=== PATIENT | male | born 1955 | race American Indian/Alaskan Native ===

== ENCOUNTER 2018-04-14 22:58 | Inpatient (IN) | payer MEDICAID ==
--- NOTE | 2018-04-15 00:23 | ED PDOC ---
Arrival/HPI <Avinash Posey - Last Filed: 04/15/18 01:13> - General Historian: Patient <Emmanuelle Soares - Last Filed: 04/15/18 02:03> - General Chief Complaint: Back Pain Time Seen by Provider: 04/14/18 23:57 - History of Present Illness Narrative History of Present Illness (Text): 04/15/18 00:24 62-year-old male presents today with multiple falls dizziness and feeling dizzy. Patient states that he has not been feeling well lately. He is complaining of a fall 2 days ago. Patient states he has been feeling dizziness. pt states today he just doesnt feel right. Pt states he is having neck pain and low back pain since his fall yesterday. pt states he fell landing on his back. pt states he hit his head but denies loc. pt denies abdominal pain. no nv/d/c/. no cp or shortness of breath. pt denies fever/chills. pt states he has had a slight cough for 9 days. no bladder or bowel incontinence. no other complaints. (Emmanuelle Soares) Past Medical History - Provider Review Nursing Documentation Reviewed: Yes - Travel History Have you recently traveled outside [place] w/in the past 3 mons?: No - Infectious Disease Hx of Infectious Diseases: None - Tetanus Immunization Tetanus Immunization: Unknown - Cardiac Hx Cardiac Disorders: Yes - Pulmonary Hx Respiratory Disorders: Yes Hx Pneumonia: Yes - Neurological Hx Neurological Disorder: No - HEENT Hx HEENT Disorder: No - Renal Hx Renal Disorder: No - Endocrine/Metabolic Hx Endocrine Disorders: No - Hematological/Oncological Hx Blood Disorders: No - Integumentary Hx Dermatological Disorder: No - Musculoskeletal/Rheumatological Hx Musculoskeletal Disorders: Yes Other/Comment: Falls, L hip r/p, spine sx, h/o clot on left leg - Gastrointestinal Hx Gastrointestinal Disorders: Yes Hx Nausea: Yes Hx Vomiting: Yes - Genitourinary/Gynecological Hx Genitourinary Disorders: Yes (HX SCROTAL INFECTION) Hx Prostate Problems: Yes - Psychiatric Hx Psychophysiologic Disorder: No Hx Depression: No Hx Substance Use: No - Surgical History Hx Orthopedic Surgery: Yes (spine sx 3-4 years ago) Other/Comment: L hip r/p - Anesthesia Hx Anesthesia: Yes Hx Anesthesia Reactions: Yes Hx Malignant Hyperthermia: No - Suicidal Assessment Feels Threatened In Home Enviroment: No <Emmanuelle Soares - Last Filed: 04/15/18 02:03> Family/Social History - Physician Review Nursing Documentation Reviewed: Yes Family/Social History: Unknown Family HX Smoking Status: Never Smoked Hx Alcohol Use: No Hx Substance Use: No Hx Substance Use Treatment: No <Emmanuelle Soares [place] - Last Filed: 04/15/18 02:03> Allergies/Home Meds <Avinash Posey - Last Filed: 04/15/18 01:13> <Emmanuelle Soares [place] - Last Filed: 04/15/18 02:03> Allergies/Adverse Reactions: Allergies No Known Allergies Allergy (Verified 04/14/18 23:16) Home Medications: Home Meds Medication Instructions Recorded Confirmed Atorvastatin [Lipitor] 10 mg PO HS 09/30/16 04/14/18 Tamsulosin [Flomax] 0.4 mg PO DAILY 09/30/16 04/14/18 Zolpidem [Ambien] 12.5 mg PO HS 09/30/16 04/14/18 Apixaban [Eliquis] 5 mg PO DAILY 10/23/16 04/14/18 Review of Systems - Review of Systems Constitutional: absent: Fatigue, Fevers Respiratory: absent: SOB, Cough Cardiovascular: absent: Chest Pain, Palpitations Gastrointestinal: absent: Abdominal Pain, Constipation, Diarrhea, Nausea, Vomiting Genitourinary Male: absent: Dysuria, Frequency, Hematuria, Urinary Output Changes Musculoskeletal: Arthralgias, Back Pain, Neck Pain Skin: absent: Rash, Pruritis Neurological: Dizziness. absent: Headache Psychiatric: absent: Anxiety, Depression <Emmanuelle Soares [place] - Last Filed: 04/15/18 02:03> Physical Exam Vital Signs Reviewed: Yes Temperature: Afebrile Blood Pressure: Normal Pulse: Regular Respiratory Rate: Normal Appearance: Positive for: Well-Appearing, Non-Toxic, Comfortable Pain Distress: None Mental Status: Positive for: Alert and Oriented X 3 - Systems Exam Head: Present: Atraumatic Pupils: Present: PERRL Extroacular Muscles: Present: EOMI Mouth: Present: Moist Mucous Membranes Neck: Present: Normal Range of Motion, MIDLINE TENDERNESS, Paraspinal Tenderness , Trachea Midline Respiratory/Chest: Present: Clear to Auscultation, Good Air Exchange. No: Respiratory Distress, Accessory Muscle Use Cardiovascular: Present: Regular Rate and Rhythm, Normal S1, S2. No: Murmurs Abdomen: No: Tenderness, Distention, Rebound, Guarding Back: Present: Normal Inspection, Midline Tenderness (+ low lumbar midline and left sided paraspinal tenderness. ), Paraspinal Tenderness Upper Extremity: Present: Normal ROM Lower Extremity: Present: Edema (+ bilateral lower leg edema), Normal ROM Neurological: Present: GCS=15, Speech Normal, Motor Func Grossly Intact, Normal Sensory Function Skin: Present: Warm, Dry, Normal Color. No: Rashes Psychiatric: Present: Alert, Oriented x 3 <Emmanuelle Soares - Last Filed: 04/15/18 02:03> Vital Signs Temp Pulse Resp BP Pulse Ox 04/15/18 01:51 98 F 75 19 126/72 99 04/14/18 23:12 98.2 F 91 H 19 123/83 100 Medical Decision Making <Avinash Posey - Last Filed: 04/15/18 01:13> Reassessment Condition: Re-examined, Improved <Emmanuelle Soares - Last Filed: 04/15/18 02:03> ED Course and Treatment: 04/15/18 00:30 62yr old male presents today with dizziness and frequent falls. c/o neck, back and left hip pain. cbc hbg;10.6 cmp: K; 2.9 trop: wnl ekg: sinus bradycardia at 58b/m no st elevations, normal axis, normal intervals. cxr; no infiltrate, no effusion left hip; hardware without signs of acute fracture head ct: FINDINGS: Brain: Prominent left temporal extra-axial space/arachnoid cyst. Cerebral and cerebellar volume loss. Patchy hypodensity is seen in the periventricular and subcortical white matter. Ventricles: Normal. No ventriculomegaly. Bones/joints: Normal. No acute fracture. Sinuses: Patchy sinus disease. Mastoid air cells: Normal as visualized. No mastoid effusion. Orbits: The visualized portions of globes appear intact. There is plate and screw fixation of right orbit. Soft tissues: Normal. IMPRESSION: No evidence of an acute intracranial hemorrhage, midline shift or mass effect is identified. c spine ct:FINDINGS: Vertebrae: There is cervical spine pedicle screw fixation from C2-C6. There is an anterior stabilization of C2-C3 and C3-C4 with disc prosthesis. Discs/Spinal canal/Neural foramina: See Vertebrae Finding. Soft tissues: Left temporal region prominent extra-axial space versus arachnoid cyst. Lung apices: Normal. Sinuses: Patchy sinus disease. IMPRESSION: There is no acute fracture of cervical spine lspine ct:FINDINGS: Vertebrae: There is pedicle screw fixation of L4-S1 level. There is hardware related artifact. Discs/Spinal canal/Neural foramina: L2-L3: There is mild diffuse disc osteophyte complex. L3-L4: There is a mild disc bulge. Ligamentum flavum hypertrophy and facet arthritis. L4-L5, L5-S1 disc prosthesis. Other bones/joints: Left hip prosthesis. Femoral component is incompletely visualized. Soft tissues: See Discs/spinal Canal/neural Foramina Finding. Bladder: Partially distended bladder with 11 mm bladder wall thickening. Correlation with urology history and urinalysis is recommended only if clinical cystitis versus other etiology is suspected. Reproductive: Enlarged prostate with calcification. Other findings: There is an infrarenal IVC filter. Small hiatal hernia. There is bibasilar atelectasis. IMPRESSION: 1. Limited do to hardware artifact. The bones are osteopenic.There is no evidence of acute fracture. 04/15/18 01:21 pt given 40 of potassium Po. pt reassessment; pt sleeping in er. no distress. stable vitals. no medications given for pain as patient is in no distress. case discussed with dr. Mcguire; will admit observational status to tele for dizziness, frequent falls, hypokalemia. all aspects of this case were discussed the attending of record. impression; dizziness, near syncope, frequent falls, hypokalemia, back pain, neck pain admit observational status to tele. (Emmanuelle Soares) - Lab Interpretations Lab Results: 04/15/18 00:00 04/15/18 00:00 Lab Results 04/15/18 00:30: Urine Color Straw, Urine Appearance Clear, Urine pH 7.0, Ur Specific [place] <= 1.005, Urine Protein Negative, Urine Glucose (UA) Negative, Urine Ketones Negative, Urine Blood Negative, Urine Nitrate Negative, Urine Bilirubin Negative, Urine Urobilinogen 0.2, Ur Leukocyte Esterase Negative 04/15/18 00:00: WBC 5.4, RBC 4.49, Hgb 10.6 L, Hct 32.1 L, MCV 71.5 L, MCH 23.6 L, MCHC 33.0, RDW 14.9 H, Plt Count 165, MPV 10.3, Gran % 53.5, Lymph % (Auto) 36.8 H, [place] % (Auto) 5.4, Eos % (Auto) 3.7, Baso % (Auto) 0.6, Gran # 2.90, Lymph # (Auto) 2.0, [place] # (Auto) 0.3, Eos # (Auto) 0.2, Baso # (Auto) 0.03 04/15/18 00:00: Sodium 143, Potassium 2.9 L* D, Chloride 103, Carbon Dioxide 30 , Anion Gap 12, BUN 15, Creatinine 0.9, Est GFR ( Amer) > 60, Est GFR ( Non-Af Amer) > 60, Random Glucose 96, Calcium 8.6, Total Bilirubin 0.3, AST 30, ALT 36, Alkaline Phosphatase 84, Lactate Dehydrogenase 510, Total Creatine Kinase 410 H, CK-MB (CK-2) 5.8 H, CK-MB (CK-2) % 1.4 L, Troponin I < 0.01, Total Protein 6.8, Albumin 3.7, Globulin 3.1, Albumin/Globulin Ratio 1.2 04/15/18 00:00: PT 14.3 H, INR 1.25, APTT 46.9 H - RAD Interpretation Radiology Orders: 04/15/18 00:07 CERVICAL SPINE W/O CONTRAST [CT] Stat LUMBAR SPINE W/O CONTRAST [CT] Stat CHEST PORTABLE [RAD] Stat 04/15/18 00:12 Hip Left [HIP MIN 2V W/ PELVIS LT] [RAD] Stat 04/15/18 00:15 HEAD W/O CONTRAST [CT] Stat - Medication Orders Current Medication Orders: Discontinued Medications Potassium Chloride (K-Dur 20 Meq Er Tab) 40 meq PO STAT STA Stop: 04/15/18 01:22 Last Admin: 04/15/18 01:36 Dose: 40 meq - 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 / has examined the patient and agrees with the treatment plan. <Avinash Posey - Last Filed: 04/15/18 01:13> Disposition/Present on Arrival <Avinash Posey - Last Filed: 04/15/18 01:13> - Present on Arrival Any Indicators Present on Arrival: No History of DVT/PE: No History of Uncontrolled Diabetes: No Urinary Catheter: No History of Decub. Ulcer: No History Surgical Site Infection Following: None - Disposition Have Diagnosis and Disposition been Completed?: Yes Disposition Time: 01:55 Patient Plan: Observation <Emmanuelle Soares - Last Filed: 04/15/18 02:03> - Disposition Diagnosis: Dizziness, Near syncope, Hypokalemia, Neck pain, Back pain, Hip pain Disposition: HOSPITALIZED Patient Problems: Current Active Problems Problem Status Onset Back pain Acute Dizziness Acute Hip pain Acute Hypokalemia Acute Near syncope Acute Neck pain Acute Condition: FAIR Referrals: Maira Grimaldo MD [Primary Care Provider] - Follow up with primary Forms: [employer] (Greek)
[2018-04-15 00:32] LABS: BASO # 0.03 K/mm3 (0.0-2.0); BASO % 0.6 % (0.0-3.0); EOS # 0.2 (0.0-0.7); EOS % 3.7 % (1.5-5.0); GRAN # 2.9 (1.4-6.5); GRAN % 53.5 % (50.0-68.0); HEMOGLOBIN 10.6 g/dL (14.0-18.0); LYMPH % 36.8 % (22.0-35.0); MEAN CELL VOLUME 71.5 fl (80.0-105.0); MEAN CORPUSCULAR HEMOGLOBIN 23.6 pg (25.0-35.0); MEAN PLATELET VOLUME 10.3 fl (7.0-11.0); MONO # 0.3 (0.1-0.6); MONO % 5.4 % (1.0-6.0); RBC 4.49 10^6/uL (3.5-6.1); RED CELL DISTRIBUTION WIDTH 14.9 % (11.5-14.5); WHITE BLOOD COUNT 5.4 10^3/ul (4.5-11.0)
[2018-04-15 00:47] LABS: INR 1.25; PARTIAL THROMBOPLASTIN TIME 46.9 Seconds (25.1-36.5); PROTHROMBIN TIME 14.3 SECONDS (9.4-12.5)
[2018-04-15 00:58] LABS: URINE BILIRUBIN NEGATIVE (NEGATIVE); URINE BLOOD NEGATIVE (NEGATIVE); URINE GLUCOSE (UA) NEGATIVE (NEGATIVE); URINE LEUKOCYTE ESTERASE NEGATIVE Leu/uL (NEGATIVE); URINE PROTEIN NEGATIVE mg/dL (<30 mg/dL); URINE UROBILINOGEN 0.2 E.U./dL (<1 E.U./dL)
[2018-04-15 01:02] LABS: TROPONIN I < 0.01 ng/mL
[2018-04-15 01:04] LABS: URINE APPEARANCE CLEAR (CLEAR); URINE COLOR STRAW (YELLOW)
[2018-04-15 01:16] LABS: ALB/GLOB RATIO 1.2 (1.1-1.8); ALBUMIN 3.7 g/dL (3.0-4.8); ALT/SGPT 36 U/L (7-56); AST/SGOT 30 U/L (17-59); BLOOD UREA NITROGEN 15 mg/dL (7-21); CALCIUM 8.6 mg/dL (8.4-10.5); GFR NON-AFRICAN AMERICAN > 60
[2018-04-15 01:19] LABS: CK MB% 1.4 % (2.5-3.0); CK-MB 5.8 ng/mL (0.0-3.6)
[2018-04-15] MEDS ORDERED: Potassium Chloride 20 mEq ER Tab PO STA (01:21)
--- NOTE | 2018-04-15 03:42 | CP.PCM.HP ---
<Tita Mcpherson - Last Filed: 04/15/18 09:30> History of Present Illness - History of Present Illness History of Present Illness: History and Physical for: Dr. Hamilton CC: Dizziness, fall, neck and back pain Pt is a 62 yo M with pmhx of DVT, L hip arthroplasty, C spine fusion surgery, BPH, Iron deficiency anemia, who presents 2 days after a mechanical fall vs near syncopal episode for neck and back pain. Pt uses a walker to help with ambulation s/p L hip arthroplasty in 2016. He states that 2 days ago he was using his walker and was about to sit down when the breaks on his walker failed and it slid forward away from his grasp. He also states that he may have experienced a bout of light headedness near the time of the fall. He states that once his walker slipped from his grasp he then hit his neck against his sofa. He denies any LOC after the fall. He then felt some pain in his neck and in his lower back a day after the fall, but is coming in today because he states the pain is not getting any better. He describes the pain as a 9/10 without radiation, but is associated with movement of the neck. He states that he had cervical fusion done but isnt sure what year. He also admits to having non-bloody diarrhea for 2 days, and denies going out for food or changing his meals. He states that he has about 3 loose soft BM's a day since the diarrhea began. He denies recent antibiotic use. He also admits to a cough for 2 weeks. He states that it is productive of a white phlegm. Pt denies fevers, chills, night sweats, weight loss, hemoptysis, chest pain, SOB, abdominal pain, nausea, vomiting, dysuria or frequency. PMH: DVT, BPH, iron deficiency anemia, c.diff PSH: back and spine surgery, L hip replacement All: NKDA SH: Denies tobacco, EtOH, or drug use FH: Dad- from [place] at 63yo, Mom- possible pacreatic cancer at 78 Present on Admission - Present on Admission Any Indicators Present on Admission: Yes History of DVT/PE: Yes Review of Systems - Constitutional Constitutional: absent: Chills, Fever, Night Sweats, Weight Loss - EENT Eyes: absent: Blurred Vision, Change in Vision Ears: absent: Tinnitus - Cardiovascular Cardiovascular: absent: Chest Pain, Diaphoresis, Irregular Heart Rhythm - Respiratory Respiratory: Cough (productive of white phlegm). absent: Dyspnea, Hemoptysis, Wheezing - Gastrointestinal Gastrointestinal: Diarrhea (past 2 days, 3 bouts of soft stools/day). absent: Abdominal Pain, Hematochezia, Melena, Nausea, Vomiting - Genitourinary Genitourinary: absent: Difficulty Urinating, Dysuria - Neurological Neurological: Dizziness. absent: Numbness, Focal Weakness, Headaches, Weakness Additional comments: admits to lightheadedness - Endocrine Endocrine: Fatigue. absent: Cold Intolorance, Palpitations Past Patient History - Infectious Disease Hx of Infectious Diseases: None - Tetanus Immunizations Tetanus Immunization: Unknown - Past Medical History & Family History Past Medical History?: Yes - Past Social History Smoking Status: Never Smoked - CARDIAC Hx Cardiac Disorders: Yes - PULMONARY Hx Respiratory Disorders: Yes Hx Pneumonia: Yes - NEUROLOGICAL Hx Neurological Disorder: No - HEENT Hx HEENT Problems: No - RENAL Hx Chronic Kidney Disease: No - ENDOCRINE/METABOLIC Hx Endocrine Disorders: No - HEMATOLOGICAL/ONCOLOGICAL Hx Blood Disorders: No - INTEGUMENTARY Hx Dermatological Problems: No - MUSCULOSKELETAL/RHEUMATOLOGICAL Hx Musculoskeletal Disorders: Yes Other/Comment: Falls, L hip r/p, spine sx, h/o clot on left leg - GASTROINTESTINAL Hx Gastrointestinal Disorders: Yes Hx Nausea: Yes Hx Vomiting: Yes - GENITOURINARY/GYNECOLOGICAL Hx Genitourinary Disorders: Yes (HX SCROTAL INFECTION) Hx Prostate Problems: Yes - PSYCHIATRIC Hx Psychophysiologic Disorder: No Hx Depression: No Hx Substance Use: No - SURGICAL HISTORY Hx Orthopedic Surgery: Yes (spine sx 3-4 years ago) Other/Comment: L hip r/p - ANESTHESIA Hx Anesthesia: Yes Hx Anesthesia Reactions: Yes Hx Malignant Hyperthermia: No Meds Allergies/Adverse Reactions: Allergies Allergy/AdvReac Type Severity Reaction Status Date / Time No Known Allergies Allergy Verified 04/14/18 23:16 Physical Exam - Constitutional Appears: Well, Non-toxic, No Acute Distress - Head Exam Head Exam: ATRAUMATIC, NORMAL INSPECTION, NORMOCEPHALIC - Eye Exam Eye Exam: EOMI, Normal appearance, PERRL - Respiratory Exam Respiratory Exam: Clear to Auscultation Bilateral, NORMAL BREATHING PATTERN. absent: Accessory Muscle Use, Chest Wall Tenderness - Cardiovascular Exam Cardiovascular Exam: REGULAR RHYTHM, +S1, +S2. absent: Clicks, Diastolic murmur , Gallop - GI/Abdominal Exam GI & Abdominal Exam: Normal Bowel Sounds, Soft. absent: Firm, Guarding, Rigid, Tenderness - Neurological Exam Neurological exam: Alert, Oriented x3 - Psychiatric Exam Psychiatric exam: Normal Affect, Normal Mood - Skin Skin Exam: Dry, Intact, Normal Color, Warm Results - Vital Signs Recent Vital Signs: Last Vital Signs Temp 98 F 04/15/18 02:47 Pulse 73 04/15/18 02:47 Resp 19 04/15/18 02:47 BP 128/71 04/15/18 02:47 Pulse Ox 99 04/15/18 02:47 - Labs Result Diagrams: 04/15/18 06:30 04/15/18 06:30 - Imaging and Cardiology Chest x-ray Status: Image reviewed by me Assessment & Plan - Assessment and Plan (Free Text) Assessment: Pt is a 62 yo M with PMHx of DVT, BPH, anemia, L hip arthroplasty, cervical fusion who presents 2 days after a mechanical fall vs near syncopal episode for neck and back pain Plan: 1) Mechanical fall r/o near syncopal episode r/o orthostatic hypotension r/o posterior cerebral artery stroke - Pt admits to having walker slip from grasp as he was attempting to sit - Pt also complained of possible light headedness near the time of the fall - left hip; hardware without signs of acute fracture - head ct: IMPRESSION: No evidence of an acute intracranial hemorrhage, midline shift or mass effect is identified. f/u official read - C-spine findings: IMPRESSION: There is no acute fracture of cervical spine f/u offical read - Lspine ct: IMPRESSION: 1. Limited do to hardware artifact. The bones are osteopenic.There is no evidence of acute fracture. f/u official read - Will get orthostatic vitals - PT consult - Vit D levels 2) Dizziness 2/2 hypovolemia 2/2 bradycardia 2/2 hypokalemia - Pt admitted to 2 days of non-bloody diarrhea - Pt on EKG ekg: sinus bradycardia at 58b/m no st elevations, normal axis, normal intervals. - Pt was also noted to be hypokalemic on labs K; 2.9 - 40 Meq K given 3) Hypokalemia 2/2 diarrhea - 40 Meqs K given - Replete as needed - f/u c.diff toxin - Bactid 1 tab PO BID started - Lactose free diet 4) Lymphadema chronic - Elevate leg - Hold lasix due to suspected near syncopal episode and potential orthostatic hypotension 5) Cough - CXR: f/u official read - robitussin dm 6) Cervical and Lumbar pain chronic: - Hx of cervical and spine surgery - Lidoderm patch - Percocet 5/325 1 tab q4 PRN for pain 7) Anemia - Check B12 - f/u GI outpt 8) Hx of DVT: - Cont elloquis 9) Hx of BPH: - Hold flomax due to suspected orthostatic hypotension and dizziness. Discussed with Dr. Joy Mcpherson - PGY1 - Date & Time Date: 04/15/18 Time: 09:30 <Raj Hamilton - Last Filed: 04/15/18 19:17> Results - Vital Signs Recent Vital Signs: Last Vital Signs Temp 98.2 F 04/15/18 17:00 Pulse 76 04/15/18 18:00 Resp 18 04/15/18 17:00 BP 132/86 04/15/18 17:00 Pulse Ox 98 04/15/18 17:00 - Labs Result Diagrams: 04/15/18 06:30 04/15/18 06:30 Labs: Laboratory Results - last 24 hr 04/15/18 04/15/18 04/15/18 06:30 06:30 06:30 WBC 4.8 RBC 4.69 Hgb 10.8 L Hct 33.5 L MCV 71.4 L MCH 23.0 L MCHC 32.2 RDW 14.9 H Plt Count 164 MPV 10.6 Gran % 46.8 L Lymph % (Auto) 42.3 H [place] % (Auto) 5.9 Eos % (Auto) 4.6 Baso % (Auto) 0.4 Gran # 2.24 Lymph # (Auto) 2.0 [place] # (Auto) 0.3 Eos # (Auto) 0.2 Baso # (Auto) 0.02 Sodium 145 Potassium 3.3 L Chloride 107 Carbon Dioxide 31 Anion Gap 11 BUN 13 Creatinine 0.8 Est GFR ( Amer) > 60 Est GFR (Non-Af Amer) > 60 Random Glucose 91 Calcium 8.7 Phosphorus 2.9 Magnesium 2.2 Total Bilirubin 0.5 AST 24 ALT 33 Alkaline Phosphatase 78 Troponin I Total Protein 6.1 Albumin 3.2 Globulin 2.9 Albumin/Globulin Ratio 1.1 Vitamin B12 582 25-OH Vitamin D Total 26.2 L 04/15/18 04/15/18 10:28 16:50 WBC RBC Hgb Hct MCV MCH MCHC RDW Plt Count MPV Gran % Lymph % (Auto) [place] % (Auto) Eos % (Auto) Baso % (Auto) Gran # Lymph # (Auto) [place] # (Auto) Eos # (Auto) Baso # (Auto) Sodium Potassium Chloride Carbon Dioxide Anion Gap BUN Creatinine Est GFR ( Amer) Est GFR (Non-Af Amer) Random Glucose Calcium Phosphorus Magnesium Total Bilirubin AST ALT Alkaline Phosphatase Troponin I < 0.01 < 0.01 Total Protein Albumin Globulin Albumin/Globulin Ratio Vitamin B12 25-OH Vitamin D Total Attending/Attestation - Attestation I have personally seen and examined this patient.: Yes I have fully participated in the care of the patient.: Yes I have reviewed all pertinent clinical information: Yes
[2018-04-15 03:46] VITALS: BMI 27.9
--- NOTE | 2018-04-15 06:21 | CT ---
Date of service: 04/15/2018 PROCEDURE: CT Cervical Spine without contrast HISTORY: neck pain COMPARISON: None available. TECHNIQUE: Axial computed tomography images were obtained of the cervical spine without the use of intravenous contrast. Coronal and sagittal reformatted images were created and reviewed. Radiation dose: Total exam DLP = mGy-cm. This CT exam was performed using one or more of the following dose reduction techniques: Automated exposure control, adjustment of the mA and/or kV according to patient size, and/or use of iterative reconstruction technique. FINDINGS: VERTEBRAE: No fracture. Normal alignment. No destructive bony lesion. Postsurgical changes DISCS/SPINAL CANAL/NEURAL FORAMINA: No significant central canal or neural foraminal stenosis. Discs heights are grossly preserved. PARASPINAL SOFT TISSUES: Unremarkable. OTHER FINDINGS: None. IMPRESSION: Postsurgical changes. No acute fracture.
--- NOTE | 2018-04-15 06:23 | CT ---
Date of service: 04/15/2018 PROCEDURE: CT Lumbar Spine without contrast HISTORY: back pain s/p fall COMPARISON: None available. TECHNIQUE: Axial computed tomography images were obtained of the lumbar spine without the use of intravenous contrast. Coronal and sagittal reformatted images were created and reviewed. Radiation dose: Total exam DLP = mGy-cm. This CT exam was performed using one or more of the following dose reduction techniques: Automated exposure control, adjustment of the mA and/or kV according to patient size, and/or use of iterative reconstruction technique. FINDINGS: VERTEBRAE: Unremarkable. No fracture. Normal alignment. Postsurgical changes in the lower lumbar spine. DISCS/SPINAL CANAL/NEURAL FORAMINA: L1-2: Unremarkable. L2-3: Unremarkable. L3-4: Unremarkable. L4-5: Unremarkable. L5-S1: Unremarkable. PARASPINAL SOFT TISSUES: Unremarkable. OTHER FINDINGS: IVC filter. IMPRESSION: Postsurgical changes in the lower lumbar spine. No evidence of acute fracture.
[2018-04-15] MEDS: Oxycodone/Acetaminophen 5/325 mg Tab PO PRN ×4 (06:58→22:31)
[2018-04-15] MEDS ORDERED: Potassium Chloride 20 mEq ER Tab PO ONE (07:00)
[2018-04-15] MEDS: guaiFENesin DM 200 mg-20 mg/10 ml UD PO PRN ×2 (07:03→22:31)
[2018-04-15 07:27] LABS: BASO # 0.02 K/mm3 (0.0-2.0); BASO % 0.4 % (0.0-3.0); EOS # 0.2 (0.0-0.7); EOS % 4.6 % (1.5-5.0); GRAN # 2.24 (1.4-6.5); GRAN % 46.8 % (50.0-68.0); HEMOGLOBIN 10.8 g/dL (14.0-18.0); LYMPH % 42.3 % (22.0-35.0); MEAN CELL VOLUME 71.4 fl (80.0-105.0); MEAN CORPUSCULAR HGB CONC 32.2 g/dl (31.0-37.0); MEAN PLATELET VOLUME 10.6 fl (7.0-11.0); MONO # 0.3 (0.1-0.6); MONO % 5.9 % (1.0-6.0); RBC 4.69 10^6/uL (3.5-6.1); RED CELL DISTRIBUTION WIDTH 14.9 % (11.5-14.5); WHITE BLOOD COUNT 4.8 10^3/ul (4.5-11.0)
--- NOTE | 2018-04-15 07:31 | CT ---
Date of service: 04/15/2018 PROCEDURE: CT HEAD WITHOUT CONTRAST. HISTORY: fall COMPARISON: None available. TECHNIQUE: Axial computed tomography images were obtained through the head/brain without intravenous contrast. Radiation dose: Total exam DLP = mGy-cm. This CT exam was performed using one or more of the following dose reduction techniques: Automated exposure control, adjustment of the mA and/or kV according to patient size, and/or use of iterative reconstruction technique. FINDINGS: HEMORRHAGE: No intracranial hemorrhage. BRAIN: No mass effect or edema. Evidence of mild atrophy and chronic microvascular ischemic changes.Left anterior temporal arachnoid cyst. VENTRICLES: Unremarkable. No hydrocephalus. CALVARIUM: Unremarkable. PARANASAL SINUSES: Unremarkable as visualized. No significant inflammatory changes. MASTOID AIR CELLS: Unremarkable as visualized. No inflammatory changes. OTHER FINDINGS: None. IMPRESSION: No bleed..
[2018-04-15 07:52] LABS: ALB/GLOB RATIO 1.1 (1.1-1.8); ALBUMIN 3.2 g/dL (3.0-4.8); ALT/SGPT 33 U/L (7-56); AST/SGOT 24 U/L (17-59); BLOOD UREA NITROGEN 13 mg/dL (7-21); CALCIUM 8.7 mg/dL (8.4-10.5); GFR NON-AFRICAN AMERICAN > 60
--- NOTE | 2018-04-15 08:41 | CARD ---
APPROVED REPORT Date of service: 04/15/2018 EKG Measurement Heart [id number] <Conclusion> Sinus bradycardia J point elevations No change except the rate is slower.
--- NOTE | 2018-04-15 09:42 | RAD ---
Date of service: 04/15/2018 HISTORY: cough COMPARISON: 09/30/2016 FINDINGS: LUNGS: No active pulmonary disease. PLEURA: No significant pleural effusion identified, no pneumothorax apparent. CARDIOVASCULAR: Normal. OSSEOUS STRUCTURES: No significant abnormalities. VISUALIZED UPPER ABDOMEN: Normal. OTHER FINDINGS: None. IMPRESSION: No active disease.
[2018-04-15] MEDS: Lidocaine 5% Patch TD SCH (10:27)
[2018-04-15] MEDS: Lactobacillus Acidophilus 500 MU Cap PO SCH ×2 (10:27→17:37)
--- NOTE | 2018-04-15 10:57 | RAD ---
Date of service: 04/15/2018 PROCEDURE: Pelvis and left hip HISTORY: hip pain COMPARISON: TECHNIQUE: Three views FINDINGS: There is a left hip prosthesis. There is heterotopic bone superior to the prosthesis. On the right side there is joint space narrowing. There is a large bone fragment adjacent to the superior acetabulum. This has a smooth contour and is probably chronic. This could be seen on the study from 10/02/2016 IMPRESSION: No acute findings
--- NOTE | 2018-04-15 11:51 | CP.PCM.CON ---
<Meche Staley - Last Filed: 04/15/18 14:28> History of Present Illness - History of Present Illness History of Present Illness: PGY-1 Meche Staley D.O. Neurology consult note for Dr. Mccurdy service: Noe Russell is a 62 yo male with a history of DVT, C-spine fusion, L THR, C diff, and HLD who presented to the ED s/p fall. The patient utilizes a rolling walker that has brakes that do not work properly. The patient describes attempting to sit down on a couch and having the walker roll out away from him. He states he hit his neck on the couch. He denies loss of consciousness or dizziness. He says he may have been lightheaded prior to falling. Patient denies BRUNSON, vision changes, acute bleeding or bruising. He is complaining of neck and L hip pain, which is increased from his chronic pain. He typically takes Percocet or morphine at home for pain and is asking for more Percocet. CT head was negative for acute pathology. PMH: HLD DVT- dx 1.5 yrs ago, reportedly on Eliquis H/o C diff dx 1.5 yrs ago- pt reports he acquired this from longterm he lived in for 6 yrs L THR in 2016 C-spine fusion approx 6 yrs ago- pt denies trauma Medical records also indicate IVC filter, BPH, and iron deficiency anemia Meds: Eliquis 5 mg PO BID- medicine team called pts pharmacy and he has not filled since Sep 2017 Lipitor- unknown dose Percocet unknown dose BID Ambien 10 mg PO QHS All: none FH: Father (63)- of [place] Mom (78)- of ?pancreatic [place] Brother- AV replacement SH: lives with friend Denies alcohol, tobacco, drugs- denies misuse of pain meds PMD: none Review of Systems - Constitutional Constitutional: absent: Fever, Frequent Falls, Headache, Weakness - EENT Eyes: absent: Blurred Vision, Change in Vision Ears: absent: Decreased Hearing, Tinnitus Nose/Mouth/Throat: absent: Nasal Congestion, Sore Throat - Cardiovascular Cardiovascular: absent: Chest Pain, Dyspnea, Palpitations - Respiratory Respiratory: Cough (dry or white phelgm). absent: Dyspnea, Hemoptysis - Gastrointestinal Gastrointestinal: Diarrhea (4x/day for last 4 days, not foul-smelling). absent : Abdominal Pain, Constipation, Hematochezia, Nausea, Vomiting Additional comments: rectal bleeding 2 wks ago, denies currently - Genitourinary Genitourinary: absent: Dysuria, Hematuria - Musculoskeletal Musculoskeletal: As Per HPI, Arthralgias, Back Pain, Limited Range of Motion. absent: Numbness, Tingling - Integumentary Integumentary: absent: Lesions, Unusual Bruising, Wounds - Neurological Neurological: Abnormal Gait (antalgic, unsteady). absent: Convulsions, Dizziness, Numbness, Frequent Falls, Headaches, Loss of Vision, Sensory Deficit , Tingling, Vertigo, Weakness - Endocrine Endocrine: absent: Fatigue, Palpitations - Hematologic/Lymphatic Hematologic: absent: Easy Bleeding, Easy Bruising (chronic LEs), Lymphadenopathy Past Patient History - Infectious Disease Hx of Infectious Diseases: None - Tetanus Immunizations Tetanus Immunization: Unknown - Past Medical History & Family History Past Medical History?: Yes Pertinent Family History: Father (63)- of [place] Mom (78)- of ?pancreativc [place] Brother- AV replacement - Past Social History Smoking Status: Never Smoked Chewing Tobacco Use: No Cigar Use: No Occupation: unemployed Alcohol: None Drugs: Denies - CARDIAC Hx Cardiac Disorders: Yes - PULMONARY Hx Respiratory Disorders: Yes Hx Pneumonia: Yes - NEUROLOGICAL Hx Neurological Disorder: No - HEENT Hx HEENT Problems: No - RENAL Hx Chronic Kidney Disease: No - ENDOCRINE/METABOLIC Hx Endocrine Disorders: No - HEMATOLOGICAL/ONCOLOGICAL Hx Blood Disorders: No - INTEGUMENTARY Hx Dermatological Problems: No - MUSCULOSKELETAL/RHEUMATOLOGICAL Hx Musculoskeletal Disorders: Yes Other/Comment: Falls, L hip r/p, spine sx, h/o clot on left leg - GASTROINTESTINAL Hx Gastrointestinal Disorders: Yes Hx Nausea: Yes Hx Vomiting: Yes - GENITOURINARY/GYNECOLOGICAL Hx Genitourinary Disorders: Yes (HX SCROTAL INFECTION) Hx Prostate Problems: Yes - PSYCHIATRIC Hx Psychophysiologic Disorder: No Hx Depression: No Hx Substance Use: No - SURGICAL HISTORY Hx Orthopedic Surgery: Yes (spine sx 3-4 years ago) Other/Comment: L hip r/p - ANESTHESIA Hx Anesthesia: Yes Hx Anesthesia Reactions: Yes Hx Malignant Hyperthermia: No Meds Allergies/Adverse Reactions: Allergies Allergy/AdvReac Type Severity Reaction Status Date / Time No Known Allergies Allergy Verified 04/14/18 23:16 - Medications Medications: Current Medications Guaifenesin/Dextromethorphan (Robitussin Dm) 10 ml PO Q4H PRN PRN Reason: Cough Last Admin: 04/15/18 07:03 Dose: 10 ml Lactobacillus Acidophilus (Bacid Acidophilus) 1 cap PO BID [facility] Last Admin: 04/15/18 10:27 Dose: 1 cap Lidocaine (Lidoderm) 1 ea TD DAILY [facility] Last Admin: 04/15/18 10:27 Dose: 1 ea Oxycodone/Acetaminophen (Percocet 5/325 Mg Tab) 1 tab PO Q4H PRN PRN Reason: Pain, moderate (4-7) Stop: 04/18/18 03:48 Last Admin: 04/15/18 06:58 Dose: 1 tab Physical Exam - Constitutional Appears: Well, Non-toxic, No Acute Distress, Younger Than Stated Age - Head Exam Head Exam: ATRAUMATIC, NORMAL INSPECTION, NORMOCEPHALIC - Eye Exam Eye Exam: EOMI, Normal appearance, PERRL - ENT Exam ENT Exam: Mucous Membranes Moist, Normal Exam - Neck Exam Neck exam: Positive for: Normal Inspection, Tenderness - Respiratory Exam Respiratory Exam: Clear to Auscultation Bilateral, NORMAL BREATHING PATTERN - Cardiovascular Exam Cardiovascular Exam: REGULAR RHYTHM, +S1, +S2 - GI/Abdominal Exam GI & Abdominal Exam: Normal Bowel Sounds, Soft. absent: Tenderness - Rectal Exam Rectal Exam: Deferred - Extremities Exam Extremities exam: Positive for: normal inspection, pedal pulses present. Negative for: calf tenderness, full ROM (decreased L hip) - Back Exam Back exam: NORMAL INSPECTION, paraspinal tenderness - Neurological Exam Neurological exam: Abnormal Gait (anatalgic, slow, utilizes walker for support) , Alert, CN II-XII Intact, Oriented x3, Reflexes Normal Additional comments: No sensory deficits noted Motor strength in upper and lower extremities equal, 5/5 Active ROM C-spine limited in all in directions Active ROM L-spine limited in flexion/extension Active ROM L hip limited in flexion/extension - Psychiatric Exam Additional comments: circumstantial, animated, loose associations, poor concentration, poor-fair historian - Skin Skin Exam: Dry, Intact, Normal Color, Warm Results - Vital Signs Recent Vital Signs: Last Vital Signs Temp 98.8 F 04/15/18 06:00 Pulse 58 L 04/15/18 06:00 Resp 20 04/15/18 06:00 BP 129/79 04/15/18 06:00 Pulse Ox 99 04/15/18 06:00 - Labs Result Diagrams: 04/15/18 06:30 04/15/18 06:30 Labs: Laboratory Results - last 24 hr 04/15/18 04/15/18 04/15/18 06:30 06:30 10:28 WBC 4.8 RBC 4.69 Hgb 10.8 L Hct 33.5 L MCV 71.4 L MCH 23.0 L MCHC 32.2 RDW 14.9 H Plt Count 164 MPV 10.6 Gran % 46.8 L Lymph % (Auto) 42.3 H Billings % (Auto) 5.9 Eos % (Auto) 4.6 Baso % (Auto) 0.4 Gran # 2.24 Lymph # (Auto) 2.0 Billings # (Auto) 0.3 Eos # (Auto) 0.2 Baso # (Auto) 0.02 Sodium 145 Potassium 3.3 L Chloride 107 Carbon Dioxide 31 Anion Gap 11 BUN 13 Creatinine 0.8 Est GFR ( Amer) > 60 Est GFR (Non-Af Amer) > 60 Random Glucose 91 Calcium 8.7 Phosphorus 2.9 Magnesium 2.2 Total Bilirubin 0.5 AST 24 ALT 33 Alkaline Phosphatase 78 Troponin I < 0.01 Total Protein 6.1 Albumin 3.2 Globulin 2.9 Albumin/Globulin Ratio 1.1 - EKG Data EKG Interpreted by: ER Physician EKG shows normal: Sinus rhythm Rate: Bradycardia (HR 58) Assessment & Plan - Assessment and Plan (Free Text) Assessment: Patient is a 62 yo male who presented s/p fall. He denies LOC and head trauma. CT head negative for acute pathology. Orthostatics negative. Syncope w/u in progress. Suspect mechanical fall +/- polypharmacy- neuro etiology unlikely. Patient does not appears in pain/acute distress. He uses walker at baseline. Plan: Fall- suspect mechanical, r/o neuro and cardiac causes, pt h/o C-spine fusion and L THR - CT head: no acute pathology - Orthostatic vitals negative - EKG: sinus bradycardia (HR 58) - C-spine, L-spine CT: no acute fx - Hip/pelvis XR: no acute findings - Vit D low (26.2) - B12 wnl (582) - Echo pending - Carotid u/s pending - Pain management as per primary team - Recommend limited use of medications that can promote dizziness/falls- including Ambien (pts home med), muscle relaxers, benzos, narcotics, etc. Anemia- h/o iron deficiency anemia - B12 582 Diarrhea- h/o C diff - C diff negative Cough - CXR: no acute pathology Hypokalemia (2.9->3.3) - Replete as needed - Continue to monitor PT consult- rec home with PT services, needs functioning walker Patient is cleared from a neurology standpoint. Case discussed with attending, Dr. Lopez. <Zach Lpoez - Last Filed: 04/15/18 23:50> Meds - Medications Medications: Current Medications Apixaban (Eliquis) 5 mg PO BID [facility] PRN Reason: Protocol Last Admin: 04/15/18 17:37 Dose: 5 mg Atorvastatin Calcium (Lipitor) 10 mg PO HS [facility] Last Admin: 04/15/18 22:31 Dose: 10 mg Cholecalciferol (Vitamin D) 2,000 intlu PO DAILY [facility] Guaifenesin/Dextromethorphan (Robitussin Dm) 10 ml PO Q4H PRN PRN Reason: Cough Last Admin: 04/15/18 22:31 Dose: 10 ml Lactobacillus Acidophilus (Bacid Acidophilus) 1 cap PO BID [facility] Last Admin: 04/15/18 17:37 Dose: 1 cap Lidocaine (Lidoderm) 1 ea TD DAILY [facility] Last Admin: 04/15/18 10:27 Dose: 1 ea Oxycodone/Acetaminophen (Percocet 5/325 Mg Tab) 1 tab PO Q4H PRN PRN Reason: Pain, moderate (4-7) Stop: 04/18/18 03:48 Last Admin: 04/15/18 22:31 Dose: 1 tab Tamsulosin HCl (Flomax) 0.4 mg PO DAILY [facility] Results - Vital Signs Recent Vital Signs: Last Vital Signs Temp 98.2 F 04/15/18 18:00 Pulse 60 04/15/18 22:00 Resp 18 04/15/18 18:00 BP 132/86 04/15/18 18:00 Pulse Ox 98 04/15/18 18:00 - Labs Result Diagrams: 04/15/18 06:30 08/27/18 06:30 Labs: Laboratory Results - last 24 hr 04/15/18 04/15/18 04/15/18 06:30 06:30 06:30 WBC 4.8 RBC 4.69 Hgb 10.8 L Hct 33.5 L MCV 71.4 L MCH 23.0 L MCHC 32.2 RDW 14.9 H Plt Count 164 MPV 10.6 Gran % 46.8 L Lymph % (Auto) 42.3 H Billings % (Auto) 5.9 Eos % (Auto) 4.6 Baso % (Auto) 0.4 Gran # 2.24 Lymph # (Auto) 2.0 Billings # (Auto) 0.3 Eos # (Auto) 0.2 Baso # (Auto) 0.02 Sodium 145 Potassium 3.3 L Chloride 107 Carbon Dioxide 31 Anion Gap 11 BUN 13 Creatinine 0.8 Est GFR ( Amer) > 60 Est GFR (Non-Af Amer) > 60 Random Glucose 91 Calcium 8.7 Phosphorus 2.9 Magnesium 2.2 Total Bilirubin 0.5 AST 24 ALT 33 Alkaline Phosphatase 78 Troponin I Total Protein 6.1 Albumin 3.2 Globulin 2.9 Albumin/Globulin Ratio 1.1 Vitamin B12 582 25-OH Vitamin D Total 26.2 L 04/15/18 04/15/18 10:28 16:50 WBC RBC Hgb Hct MCV MCH MCHC RDW Plt Count MPV Gran % Lymph % (Auto) Billings % (Auto) Eos % (Auto) Baso % (Auto) Gran # Lymph # (Auto) Billings # (Auto) Eos # (Auto) Baso # (Auto) Sodium Potassium Chloride Carbon Dioxide Anion Gap BUN Creatinine Est GFR ( Amer) Est GFR (Non-Af Amer) Random Glucose Calcium Phosphorus Magnesium Total Bilirubin AST ALT Alkaline Phosphatase Troponin I < 0.01 < 0.01 Total Protein Albumin Globulin Albumin/Globulin Ratio Vitamin B12 25-OH Vitamin D Total Attending/Attestation - Attestation I have personally seen and examined this patient.: Yes I have fully participated in the care of the patient.: Yes I have reviewed all pertinent clinical information: Yes Notes (Text): 04/15/18 23:49 I examined the patient at bedside with the resident and on my exam, the patient did not have any focal neurological deficits. I agree with the remainder of the assessment and plan. 04/15/18 23:50
--- NOTE | 2018-04-15 11:53 | CP.PCM.PN ---
<Abran Batres - Last Filed: 04/15/18 18:41> Subjective - Date & Time of Evaluation Date of Evaluation: 04/15/18 Time of Evaluation: 07:00 - Subjective Subjective: Abran Batres, PGY1 Progress Note for Dr. Leiva Patient was seen and examined at bedside this morning. Patient said that he has had frequent falls because his rolling walker was malfunctioning; the brakes are not working appropriately. Patient said that it is unclear whether or not he experienced any dizziness during the fall, however, at this moment he does not endorse lightheadedness or dizziness. Patient denies chest pain, shortness of breath, headache, numbness and tingling of the extremities, nausea, vomiting. Patient has left leg pain, along with chronic neck and low neck pain he associated with his hip replacement (2015). Patient states that he is on Eliquis and has some bruising of his lower extremities that might be related to it. However, patient's pharmacy was called and they said that patient has not received his Eliquis since 10/07 due to issues with insurance. Also, patient said that he has a history of C. diff (C. diff toxin last positive on 09/2016), however, he has not had any diarrhea overnight. No other changes. A full 12 point ROS was conducted and unremarkable except as stated above. Objective - Vital Signs/Intake and Output Vital Signs (last 24 hours): Temp Pulse Resp BP Pulse Ox 98.8 F 58 L 20 129/79 99 04/15/18 06:00 04/15/18 06:00 04/15/18 06:00 04/15/18 06:00 04/15/18 06:00 Intake and Output: 04/15/18 04/15/18 06:59 18:59 Intake Total 480 Output Total 1000 Balance -520 - Medications Medications: Current Medications Guaifenesin/Dextromethorphan (Robitussin Dm) 10 ml PO Q4H PRN PRN Reason: Cough Last Admin: 04/15/18 07:03 Dose: 10 ml Lactobacillus Acidophilus (Bacid Acidophilus) 1 cap PO BID [facility] Last Admin: 04/15/18 10:27 Dose: 1 cap Lidocaine (Lidoderm) 1 ea TD DAILY [facility] Last Admin: 04/15/18 10:27 Dose: 1 ea Oxycodone/Acetaminophen (Percocet 5/325 Mg Tab) 1 tab PO Q4H PRN PRN Reason: Pain, moderate (4-7) Stop: 04/18/18 03:48 Last Admin: 04/15/18 06:58 Dose: 1 tab - Labs Labs: 04/15/18 06:30 04/15/18 06:30 PT 14.3 SECONDS (9.4-12.5) H 04/15/18 00:00 INR 1.25 04/15/18 00:00 APTT 46.9 Seconds (25.1-36.5) H 04/15/18 00:00 - Constitutional Appears: Well, No Acute Distress - Head Exam Head Exam: ATRAUMATIC, NORMAL INSPECTION, NORMOCEPHALIC - Eye Exam Eye Exam: EOMI, Normal appearance, PERRL Pupil Exam: NORMAL ACCOMODATION, PERRL - ENT Exam ENT Exam: Mucous Membranes Moist, Normal Exam - Neck Exam Neck Exam: Full ROM, Normal Inspection, Tenderness (Mild tenderness to palpation. ). absent: Lymphadenopathy - Respiratory Exam Respiratory Exam: Clear to Ausculation Bilateral, NORMAL BREATHING PATTERN. absent: Accessory Muscle Use, Rales, Rhonchi, Wheezes, Respiratory Distress, Stridor - Cardiovascular Exam Cardiovascular Exam: REGULAR RHYTHM, +S1, +S2. absent: Murmur - GI/Abdominal Exam GI & Abdominal Exam: Tenderness (Pain with deep palpation of abdomnen, R > L. Patient says that it is chronic. ), Normal Bowel Sounds. absent: Guarding, Rigid, Rebound - Extremities Exam Extremities Exam: Normal Capillary Refill, Tenderness (Mild tenderness to palpation of the lower extremity bilaterally. ). absent: Calf Tenderness, Full ROM (Limited ROM of the left hip and left lower extremity. ), Joint Swelling, Pedal Edema - Back Exam Back Exam: tenderness (Tenderness at the lumbar region. Chronic in nature. ) - Neurological Exam Neurological Exam: Alert, Awake, Oriented x3 Neuro motor strength exam: Left Upper Extremity: 5, Right Upper Extremity: 5, Left Lower Extremity: 4, Right Lower Extremity: 5 - Skin Skin Exam: Dry, Intact, Normal Color, Warm Assessment and Plan - Assessment and Plan (Free Text) Assessment: Patient is a 62 y/o M with PMHx of DVT (previously on Eliquis), BPH, Anemia, and C. diff who presented to the ED for mechanical falls x3. Patient was unsure if he had any associated dizziness with the falls. Patient has associated neck/ back pain (chronic). Head CT negative for acute hemorrhage. C-spine CT and Lumbar Spine CT were negative for acute fracture; there was only evidence for post-surgical changes/fusions. CXR negative. Patient had an episode of bradycardia but it resolved with negative troponin. Because the etiology of the fall is unclear, Neurology consulted to r/o non-mechanical causes. Plan: Mechanical Fall vs syncope (less likely) - Based on history, likely mechanical due to rolling walker malfunction - Neurology consulted, f/u recs - f/u Carotid Ultrasound - f/u ECHO - f/u serial trops; currently trop negative x1 - CT Head: negative for intracranial hemorrhage or bleed - C-spine CT: no fracture; post-surgical changes - Lumbar spine CT: no fracture; post-surgical changes - CXR: no infiltrate or effusion Episode of Sinus bradycardia - resolved - EKG (04/15): HR 58 with possible incomplete L-BBB - HR has been in the 70s - f/u serial trops - c/w Lipitor home med Hypokalemia - improving - K was 2.9 in ED; given K-Dur 40 mEq stat and one time dose - repeat K is 3.3 - f/u repeat CMP - No EKG changes Lower Extremity Pain - History of hip replacement (2015) - PT eval - Bruising of lower extremities bilaterally; patient was previously on Eliquis - As per outpatient pharmacy ([facility]), patient last took Eliquis on ; issue with health insurance History of Prior DVT - resume Eliquis 5 mg PO BID HTN - c/w Lipitor - BP normal BPH - c/w Flomax home med - No indications of urinary obstruction Dispo: Continue to manage patient on the floor. Case was discussed and reviewed with Attending Physician Dr. Leiva. <Cici Leiva - Last Filed: 04/16/18 13:04> Objective - Vital Signs/Intake and Output Vital Signs (last 24 hours): Temp Pulse Resp BP Pulse Ox 97 F L 81 20 135/79 100 04/16/18 11:54 04/16/18 11:54 04/16/18 11:54 04/16/18 11:54 04/16/18 06:00 Intake and Output: 04/16/18 04/16/18 06:59 18:59 Intake Total 480 Output Total 600 Balance -120 - Medications Medications: Current Medications Apixaban (Eliquis) 5 mg PO BID [facility] PRN Reason: Protocol Last Admin: 04/16/18 09:17 Dose: 5 mg Atorvastatin Calcium (Lipitor) 10 mg PO HS [facility] Last Admin: 04/15/18 22:31 Dose: 10 mg Cholecalciferol (Vitamin D) 2,000 intlu PO DAILY [facility] Last Admin: 04/16/18 09:17 Dose: 2,000 intlu Guaifenesin/Dextromethorphan (Robitussin Dm) 10 ml PO Q4H PRN PRN Reason: Cough Last Admin: 04/16/18 06:00 Dose: 10 ml Lactobacillus Acidophilus (Bacid Acidophilus) 1 cap PO BID [facility] Last Admin: 04/16/18 09:17 Dose: 1 cap Lidocaine (Lidoderm) 1 ea TD DAILY [facility] Last Admin: 04/16/18 09:16 Dose: 1 ea Oxycodone/Acetaminophen (Percocet 5/325 Mg Tab) 1 tab PO Q4H PRN PRN Reason: Pain, moderate (4-7) Stop: 04/18/18 03:48 Last Admin: 04/16/18 06:00 Dose: 1 tab Tamsulosin HCl (Flomax) 0.4 mg PO DAILY [facility] Last Admin: 04/16/18 09:17 Dose: 0.4 mg - Labs Labs: 04/16/18 06:30 04/16/18 06:30 PT 14.3 SECONDS (9.4-12.5) H 04/15/18 00:00 INR 1.25 04/15/18 00:00 APTT 46.9 Seconds (25.1-36.5) H 04/15/18 00:00 Attending/Attestation - Attestation I have personally seen and examined this patient.: Yes I have fully participated in the care of the patient.: Yes I have reviewed all pertinent clinical information, including history, physical exam and plan: Yes Notes (Text): Patient seen and examined by me at 10:40AM with resident 04/15/18. Case including HPI, physical exam, and assessment and plan discussed with resident. Agree with above with following additions/corrections. Patient is 62-year-old male with past medical history significant for DVT of left lower extremity, left hip arthroplasty, C-spine fusion surgery, BPH, and iron deficiency anemia that presented to the emergency room with mechanical fall , dizziness, neck and back pain. Patient states he is feels better today. He is unsure if he felt dizzy or lightheaded prior to his fall at home. He states that he has fallen before secondary to his walker. He states that he also fell this time secondary to his walker not functioning properly. He denies any headaches or dizziness. No change in vision. Patient complains of chronic neck pain and back pain. No chest pain or shorntess of breath. No fevers or chills. No nausea, vomiting, or abdominal pain. No dysuria. Physical exam: General: Awake and alert, lying in bed in no acute distress HEENT: Normocephalic, atraumatic. Extraocular muscles intact. No scleral icterus. Oropharynx is pink and moist. No pharyngeal erythema or exudate appreciated. Neck is supple. Cardiovascular: Normal rhythm. Normal S1, S2. No murmurs, rubs, or gallops appreciated Pulmonary: Normal respiratory effort. No rhonchi, rales or wheezing appreciated. Gastrointestinal: Soft, nondistended. Nontender. Positive bowel sounds all 4 quadrants, no guarding. Musculoskeletal: Moves all extremities, positive lower extremity edema. Central nervous system: CN2-12 grossly intact. AAO x 3 Dermatologic: Skin warm and dry Assessment and plan: Patient is 62-year-old male with past medical history significant for DVT of left lower extremity, left hip arthroplasty, C-spine fusion surgery, BPH, and iron deficiency anemia that presented to the emergency room with mechanical fall, dizziness, neck and back pain. 1. Mechanical fall. Possible near syncope. Head CT per radiologist shows no bleed. Cervical spine CT per radiologist shows postsurgical changes, no acute fracture. Lumbar spine CT per radiologist showed postsurgical changes in the lower lumbar spine, no evidence of acute fracture. Left hip/pelvis x-ray per radiologist shows left hip prosthesis, no acute findings. PT eval and treat. Neurology following, recommendations appreciated. Pending 2-D echo, carotid Dopplers. Orthostatic vitals within normal limits. Patient will likely need new walker 2. Hypokalemia. Improved. Likely secondary to diarrhea. Continue to replace. Follow-up repeat labs in a.m. 3. Diarrhea. Resolving per patient. C. difficile toxin pending. 4. Bilateral lower extremity edema. Chronic. Patient has history of DVT in left lower extremity. Continue home Eliquis, medication was confirmed with patient's new pharmacy, patient is currently taking this medication. 5. BPH. Continue Flomax 6. Hyperlipidemia. Continue home Lipitor. 7. Chronic neck and back pain. PT eval and treat. Lidoderm patch 8. Vitamin D deficiency. Started on oral vitamin D supplement. Case was discussed in detail with patient regarding current diagnosis and treatment plan.
[2018-04-16] MEDS: Oxycodone/Acetaminophen 5/325 mg Tab PO PRN ×3 (06:00→20:13)
[2018-04-16] MEDS: guaiFENesin DM 200 mg-20 mg/10 ml UD PO PRN ×2 (06:00→14:04)
[2018-04-16 06:55] LABS: HEMOGLOBIN 11.5 g/dL (14.0-18.0); MEAN CELL VOLUME 71.9 fl (80.0-105.0); MEAN CORPUSCULAR HEMOGLOBIN 23.1 pg (25.0-35.0); MEAN CORPUSCULAR HGB CONC 32.1 g/dl (31.0-37.0); MEAN PLATELET VOLUME 11.1 fl (7.0-11.0); RBC 4.98 10^6/uL (3.5-6.1); WHITE BLOOD COUNT 4.1 10^3/ul (4.5-11.0)
[2018-04-16 07:02] LABS: ALB/GLOB RATIO 1.1 (1.1-1.8); ALBUMIN 3.3 g/dL (3.0-4.8); ALT/SGPT 31 U/L (7-56); AST/SGOT 29 U/L (17-59); BLOOD UREA NITROGEN 9 mg/dL (7-21); CALCIUM 8.5 mg/dL (8.4-10.5); GFR NON-AFRICAN AMERICAN > 60
[2018-04-16] MEDS ORDERED: Potassium Chloride 20 mEq ER Tab PO ONE (07:22)
--- NOTE | 2018-04-16 08:43 | CARD ---
APPROVED REPORT Date of service: 04/15/2018 EXAM: Two-dimensional and M-mode echocardiogram with Doppler and color Doppler. Other Information Quality : FairRhythm : INDICATION Dizziness. 2D DIMENSIONS Left Atrium (2D)3.8 (1.6-4.0cm)IVSd1.1 (0.7-1.1cm) LVDd3.3 (3.9-5.9cm)PWd1.1 (0.7-1.1cm) LVDs2.4 (2.5-4.0cm)FS (%) 26.8 % LVEF (%)53.0 (>50%) M-Mode DIMENSIONS Aortic Root3.10 (2.2-3.7cm)Aortic Cusp Exc.1.30 (1.5-2.0cm) Aortic Valve AoV Peak [id number]/Loren Peak GR.13mmHg Mitral Valve E/A ratio0.0 TDI E/Lateral E'0.0E/Medial E'0.0 Tricuspid Valve TR Peak [id number] [id number] Peak Gr.17mmHg [id number] LEFT VENTRICLE The left ventricle is normal size. There is normal left ventricular wall thickness. The left ventricular function is normal. The left ventricular ejection fraction is within the normal range. There is normal LV segmental wall motion. RIGHT VENTRICLE The right ventricle is normal size. ATRIA The left atrium size is normal. The right atrium size is normal. The interatrial septum is intact with no evidence for an atrial septal defect. AORTIC VALVE The aortic valve is moderately calcified. MITRAL VALVE The mitral valve is normal in structure. TRICUSPID VALVE The tricuspid valve is normal in structure. There is trace tricuspid regurgitation. PULMONIC VALVE The pulmonic valve is not well visualized. GREAT VESSELS The aortic root is normal in size. PERICARDIAL EFFUSION There is no pericardial effusion. <Conclusion> The left ventricle is normal size. There is normal left ventricular wall thickness. The left ventricular function is normal. The left ventricular ejection fraction is within the normal range. The aortic valve is moderately calcified. Aortic sclerosis vs. mild .
[2018-04-16] MEDS: Lidocaine 5% Patch TD SCH (09:16)
[2018-04-16] MEDS: Cholecalciferol 1,000 INTLU TAB PO SCH (09:17)
[2018-04-16] MEDS: Lactobacillus Acidophilus 500 MU Cap PO SCH ×2 (09:17→18:13)
--- NOTE | 2018-04-16 09:41 | CP.PCM.PN ---
<Abran Batres - Last Filed: 04/16/18 16:17> Subjective - Date & Time of Evaluation Date of Evaluation: 04/16/18 Time of Evaluation: 07:00 - Subjective Subjective: Abran Batres, PGY1 Medicine Progress Note for Dr. Leiva Patient was seen and examined at bedside this morning. He is still c/o chronic neck and low back pain, unchanged from yesterday, Patient said that he did have an episode of lightheadedness going to the bathroom prior to interview, a nurse had to assist him. However, he feels fine now. Patient still has chronic mild abdominal pain for which he says has been ongoing and he needs to follow up with his GI doctor. Denies dizziness, chest pain, shortness of breath, n/v/d. Patient was evaluated by Physical Therapy yesterday. Otherwise, no changes from overnight. VSS. A full 12 point ROS was conducted and unremarkable except as stated above. Objective - Vital Signs/Intake and Output Vital Signs (last 24 hours): Temp Pulse Resp BP Pulse Ox 97.3 F L 82 18 119/73 100 04/16/18 06:00 04/16/18 06:00 04/16/18 06:00 04/16/18 06:00 04/16/18 06:00 Intake and Output: 04/16/18 04/16/18 06:59 18:59 Intake Total 480 Output Total 600 Balance -120 - Medications Medications: Current Medications Apixaban (Eliquis) 5 mg PO BID [facility] PRN Reason: Protocol Last Admin: 04/16/18 09:17 Dose: 5 mg Atorvastatin Calcium (Lipitor) 10 mg PO HS [facility] Last Admin: 04/15/18 22:31 Dose: 10 mg Cholecalciferol (Vitamin D) 2,000 intlu PO DAILY [facility] Last Admin: 04/16/18 09:17 Dose: 2,000 intlu Guaifenesin/Dextromethorphan (Robitussin Dm) 10 ml PO Q4H PRN PRN Reason: Cough Last Admin: 04/16/18 06:00 Dose: 10 ml Lactobacillus Acidophilus (Bacid Acidophilus) 1 cap PO BID [facility] Last Admin: 04/16/18 09:17 Dose: 1 cap Lidocaine (Lidoderm) 1 ea TD DAILY [facility] Last Admin: 04/16/18 09:16 Dose: 1 ea Oxycodone/Acetaminophen (Percocet 5/325 Mg Tab) 1 tab PO Q4H PRN PRN Reason: Pain, moderate (4-7) Stop: 04/18/18 03:48 Last Admin: 04/16/18 06:00 Dose: 1 tab Tamsulosin HCl (Flomax) 0.4 mg PO DAILY [facility] Last Admin: 04/16/18 09:17 Dose: 0.4 mg - Labs Labs: 04/16/18 06:30 04/16/18 06:30 PT 14.3 SECONDS (9.4-12.5) H 04/15/18 00:00 INR 1.25 04/15/18 00:00 APTT 46.9 Seconds (25.1-36.5) H 04/15/18 00:00 - Constitutional Appears: Well, No Acute Distress - Head Exam Head Exam: ATRAUMATIC, NORMAL INSPECTION, NORMOCEPHALIC - Eye Exam Eye Exam: EOMI, Normal appearance, PERRL Pupil Exam: NORMAL ACCOMODATION, PERRL - ENT Exam ENT Exam: Mucous Membranes Moist, Normal Exam - Neck Exam Neck Exam: Full ROM, Normal Inspection. absent: Lymphadenopathy - Respiratory Exam Respiratory Exam: Clear to Ausculation Bilateral, NORMAL BREATHING PATTERN. absent: Rales, Rhonchi, Wheezes - Cardiovascular Exam Cardiovascular Exam: REGULAR RHYTHM, +S1, +S2. absent: Murmur - GI/Abdominal Exam GI & Abdominal Exam: Soft, Tenderness (RUQ tenderness to deep palpation of the abdomen (chronic). ), Normal Bowel Sounds - Extremities Exam Extremities Exam: Normal Capillary Refill, Normal Inspection, Tenderness (Mild tenderness to palpation of lower extremities bilaterally. ). absent: Calf Tenderness, Full ROM (Limited ROM of the left hip and lower extremity. ), Joint Swelling, Pedal Edema - Back Exam Back Exam: NORMAL INSPECTION - Neurological Exam Neurological Exam: Alert, Awake, Oriented x3 Neuro motor strength exam: Left Upper Extremity: 5, Right Upper Extremity: 5, Left Lower Extremity: 3, Right Lower Extremity: 5 - Skin Skin Exam: Dry, Intact, Normal Color, Warm Assessment and Plan - Assessment and Plan (Free Text) Assessment: Patient is a 62 y/o M with PMHx of DVT (previously on Eliquis), BPH, Anemia, and C. diff who presented to the ED for mechanical falls x3. Patient was unsure if he had any associated dizziness with the falls. Patient has associated neck/ back pain (chronic). Head CT negative for acute hemorrhage. C-spine CT and Lumbar Spine CT were negative for acute fracture; there was only evidence for post-surgical changes/fusions. CXR negative. Patient had an episode of bradycardia but it resolved with negative troponins. Because the etiology of the fall is unclear, Neurology consulted to r/o non-mechanical causes. Plan: Mechanical Fall vs near-syncope - Based on history, likely mechanical due to rolling walker malfunction - Neurology recs appreciated - Carotid US: f/u official read - ECHO (04/15): 53% EF. Moderate calcified aortic valve. Aortic sclerosis vs. mild . - Hip/Pelvis XR: no fractures. - Orthostatics vitals within normal limits - CT Head: negative for intracranial hemorrhage or bleed - C-spine CT: no fracture; post-surgical changes - Lumbar spine CT: no fracture; post-surgical changes - CXR: no infiltrate or effusion Lower Extremity Pain with History of Prior DVT in Left Lower Extremity - Venous doppler (04/16): f/u official read - Bruising of lower extremities bilaterally; patient has been taking Eliquis 5mg PO ([facility]) - resume Eliquis 5 mg PO BID (home med) - History of L-hip replacement (2015) - Patient was evaluated by PT - Venous doppler: f/u official read Episode of Sinus bradycardia - resolved - EKG (04/15): HR 58 with possible incomplete L-BBB - HR has been in the 70s - troponins negative x3 Hypokalemia likely 2/2 diarrhea - resolved - K is 3.4 (04/16) - K was 2.9 in ED; given K-Dur 40 mEq stat and one time dose - No EKG changes HLD - c/w Lipitor BPH - c/w Flomax home med - No indications of urinary obstruction Dispo: Continue to manage patient on the floor. Case was discussed and reviewed with Attending Physician Dr. Leiva. <Cici Leiva R - Last Filed: 04/17/18 08:19> Objective - Vital Signs/Intake and Output Vital Signs (last 24 hours): Temp Pulse Resp BP Pulse Ox 98.4 F 83 18 123/79 99 04/17/18 06:01 04/16/18 21:30 04/16/18 21:30 04/16/18 21:30 04/16/18 21:30 Intake and Output: 04/17/18 04/17/18 06:59 18:59 Output Total 600 Balance -600 - Medications Medications: Current Medications Apixaban (Eliquis) 5 mg PO BID [facility] PRN Reason: Protocol Last Admin: 04/16/18 18:13 Dose: 5 mg Atorvastatin Calcium (Lipitor) 10 mg PO HS [facility] Last Admin: 04/16/18 22:00 Dose: 10 mg Cholecalciferol (Vitamin D) 2,000 intlu PO DAILY [facility] Last Admin: 04/16/18 09:17 Dose: 2,000 intlu Guaifenesin/Dextromethorphan (Robitussin Dm) 10 ml PO Q4H PRN PRN Reason: Cough Last Admin: 04/17/18 06:32 Dose: 10 ml Lactobacillus Acidophilus (Bacid Acidophilus) 1 cap PO BID [facility] Last Admin: 04/16/18 18:13 Dose: 1 cap Lidocaine (Lidoderm) 1 ea TD DAILY [facility] Last Admin: 04/16/18 09:16 Dose: 1 ea Oxycodone/Acetaminophen (Percocet 5/325 Mg Tab) 1 tab PO Q6H PRN PRN Reason: Pain, severe (8-10) Stop: 04/19/18 18:30 Last Admin: 04/17/18 02:26 Dose: 1 tab Tamsulosin HCl (Flomax) 0.4 mg PO DAILY [facility] Last Admin: 04/16/18 09:17 Dose: 0.4 mg - Labs Labs: 04/17/18 06:30 04/17/18 06:30 PT 14.3 SECONDS (9.4-12.5) H 04/15/18 00:00 INR 1.25 04/15/18 00:00 APTT 46.9 Seconds (25.1-36.5) H 04/15/18 00:00 Attending/Attestation - Attestation I have personally seen and examined this patient.: Yes I have fully participated in the care of the patient.: Yes I have reviewed all pertinent clinical information, including history, physical exam and plan: Yes Notes (Text): Patient seen and examined by me at 10:20AM with resident 04/16/18. Case including HPI, physical exam, and assessment and plan discussed with resident. Agree with above with following additions/corrections. Patient is 62-year-old male with past medical history significant for DVT of left lower extremity, left hip arthroplasty, C-spine fusion surgery, BPH, and iron deficiency anemia that presented to the emergency room with mechanical fall , dizziness, neck and back pain. Patient states he is feels ok. States that he felt dizzy when he stood up to go to restroom today. He denies any headaches or dizziness. No change in vision. Patient complains of chronic neck pain and back pain. Also complains of chronic right sided abdominal pain. No chest pain or shorntess of breath. No fevers or chills. No nausea or vomiting. No dysuria. Physical exam: General: Awake and alert, lying in bed in no acute distress HEENT: Normocephalic, atraumatic. Extraocular muscles intact. No scleral icterus. Oropharynx is pink and moist. No pharyngeal erythema or exudate appreciated. Neck is supple. Cardiovascular: Normal rhythm. Normal S1, S2. No murmurs, rubs, or gallops appreciated Pulmonary: Normal respiratory effort. No rhonchi, rales or wheezing appreciated. Gastrointestinal: Soft, postive right sided abdominal tenderness with deep palpation. Nontender. Positive bowel sounds all 4 quadrants, no guarding. Musculoskeletal: Moves all extremities, positive lower extremity edema. Central nervous system: CN2-12 grossly intact. AAO x 3 Dermatologic: Skin warm and dry Assessment and plan: Patient is 62-year-old male with past medical history significant for DVT of left lower extremity, left hip arthroplasty, C-spine fusion surgery, BPH, and iron deficiency anemia that presented to the emergency room with mechanical fall, dizziness, neck and back pain. 1. Mechanical fall. Possible near syncope. Pending carotid doppler read. 2D echo per spiral runner shows left ventricle is normal size, normal left ventricular wall thickness, left ventricular function is normal, left ventricular ejection fraction is within normal range (please see official read for full details). Head CT per radiologist shows no bleed. Cervical spine CT per radiologist shows postsurgical changes, no acute fracture. Lumbar spine CT per radiologist showed postsurgical changes in the lower lumbar spine, no evidence of acute fracture. Left hip/pelvis x-ray per radiologist shows left hip prosthesis, no acute findings. Continue PT. Neurology following, recommendations appreciated. Orthostatic vitals within normal limits. 2. Hypokalemia. Improved. Likely secondary to diarrhea. Continue to replace. Follow-up repeat labs in a.m. 3. Diarrhea. Resolving per patient. C. difficile toxin negative 4. Bilateral lower extremity edema. Chronic. Patient has history of DVT in left lower extremity. Follow up lower extremity venous dopplers. Continue home Eliquis, medication was confirmed with patient's new pharmacy, patient is currently taking this medication. 5. BPH. Continue Flomax 6. Hyperlipidemia. Continue home Lipitor. 7. Chronic neck and back pain. Continue PT. Lidoderm patch 8. Vitamin D deficiency. Continue oral vitamin D supplement. 9. Right sided chronic abdominal pain. Per patient, he was suppose to get colonoscopy as outpatient but has not followed up. Will check abdominal ultrasound. Case was discussed in detail with patient regarding current diagnosis and treatment plan.
--- NOTE | 2018-04-16 16:37 | US ---
HISTORY: Leg pain and swelling. Evaluate for DVT PHYSICIAN(S): Chilango Hardin MD. TECHNIQUE: Duplex sonography and color-flow Doppler with graded compression were used to evaluate the deep venous systems of both lower extremities. FINDINGS: There is occlusive thrombus in the left femoral vein. Partially recannulized thrombus is noted in the left popliteal vein. The left common femoral vein and proximal left profunda femoral vein are patent. There is no sonographic evidence for deep venous thrombosis the visualized segments of the right lower extremity IMPRESSION: Occlusive thrombus in the left femoral vein. Partially recannulized thrombus in the left popliteal vein.
--- NOTE | 2018-04-16 17:34 | US ---
PROCEDURE: Bilateral carotid artery duplex ultrasound HISTORY: Carotid stenosis dizziness PHYSICIAN(S): Chilango Hardin MD. TECHNIQUE: Duplex sonography and color-flow Doppler were used to evaluate the carotid bifurcations and limited segments of the vertebral arteries bilaterally. FINDINGS: There is mild smooth heterogeneous plaque noted at the carotid bifurcations bilaterally. The peak systolic velocity in the proximal right internal carotid artery is 70 cm/sec. This corresponds to a 20 to 39% proximal right ICA stenosis. Normal systolic velocities are noted in the proximal right external carotid artery. There is antegrade flow in the right vertebral artery. The peak systolic velocity in the proximal left internal carotid artery is 79 cm/sec. This corresponds to a 20 to 39% proximal left ICA stenosis. Normal systolic velocities are noted in the proximal left external carotid artery. There is antegrade flow in the left vertebral artery. IMPRESSION: 1. Bilateral 20-39% proximal ICA stenoses. 2. Antegrade flow in both vertebral arteries.
[2018-04-17] MEDS: Oxycodone/Acetaminophen 5/325 mg Tab PO PRN ×4 (02:26→22:01)
[2018-04-17] MEDS: guaiFENesin DM 200 mg-20 mg/10 ml UD PO PRN ×2 (06:32→14:30)
[2018-04-17 07:05] LABS: HEMOGLOBIN 12.3 g/dL (14.0-18.0); MEAN CORPUSCULAR HEMOGLOBIN 23.3 pg (25.0-35.0); MEAN CORPUSCULAR HGB CONC 32.4 g/dl (31.0-37.0); RBC 5.28 10^6/uL (3.5-6.1); RED CELL DISTRIBUTION WIDTH 15.2 % (11.5-14.5)
[2018-04-17 07:36] LABS: ALB/GLOB RATIO 1.1 (1.1-1.8); ALBUMIN 3.8 g/dL (3.0-4.8); ALT/SGPT 32 U/L (7-56); AST/SGOT 31 U/L (17-59); BLOOD UREA NITROGEN 9 mg/dL (7-21); CALCIUM 8.6 mg/dL (8.4-10.5); GFR NON-AFRICAN AMERICAN > 60
--- NOTE | 2018-04-17 09:33 | US ---
HISTORY: right abdominal pain COMPARISON: CT abdomen and pelvis with contrast performed 10/23/16 TECHNIQUE: Sonographic evaluation of the abdomen. FINDINGS: LIVER: Measures 18.3 appears unremarkable. No focal hepatic mass identified. The main portal vein appears patent with normal directional flow. No intrahepatic bile duct dilatation. GALLBLADDER: No gallstones. No gallbladder wall thickening. Negative sonographic Crowder's sign as assessed by the training mgr. COMMON BILE DUCT: Measures 6 mm. PANCREAS: Not well visualized. RIGHT KIDNEY: Measures 11.3 x 4.8 x 5.1cm. No obstructing calculus or hydronephrosis identified. LEFT KIDNEY: Measures 11.7 x 6.2 x 6.1cm. No obstructing calculus or hydronephrosis identified. SPLEEN: Measures approximately 8.6 cm. AORTA: Limited views appear unremarkable. IVC: Limited views appear unremarkable. OTHER FINDINGS: None. IMPRESSION: Unremarkable abdominal sonogram with findings as above.
[2018-04-17] MEDS: Lactobacillus Acidophilus 500 MU Cap PO SCH ×2 (10:01→17:54)
[2018-04-17] MEDS: Lidocaine 5% Patch TD SCH (10:01)
[2018-04-17] MEDS: Cholecalciferol 1,000 INTLU TAB PO SCH (10:02)
--- NOTE | 2018-04-17 16:24 | CP.PCM.PN ---
<Abran Batres - Last Filed: 04/17/18 16:38> Subjective - Date & Time of Evaluation Date of Evaluation: 04/17/18 Time of Evaluation: 07:00 - Subjective Subjective: Abran Batres PGY1 Medicine Progress Note for Dr. Leiva Patient was seen and examined at bedside this morning. VSS. No overnight changes. He still has mild abdominal tenderness. However, he denies chest pain, shortness of breath, pain in lower extremities, nausea, vomiting, diarrhea. A full 12 point ROS was conducted and unremarkable except as stated above. Objective - Vital Signs/Intake and Output Vital Signs (last 24 hours): Temp Pulse Resp BP Pulse Ox 98.5 F 96 H 20 142/106 H 98 04/17/18 14:00 04/17/18 14:00 04/17/18 14:00 04/17/18 14:00 04/17/18 14:00 Intake and Output: 04/17/18 04/17/18 06:59 18:59 Output Total 600 Balance -600 - Medications Medications: Current Medications Apixaban (Eliquis) 5 mg PO BID [facility] PRN Reason: Protocol Last Admin: 04/17/18 10:02 Dose: 5 mg Atorvastatin Calcium (Lipitor) 10 mg PO HS [facility] Last Admin: 04/16/18 22:00 Dose: 10 mg Cholecalciferol (Vitamin D) 2,000 intlu PO DAILY [facility] Last Admin: 04/17/18 10:02 Dose: 2,000 intlu Guaifenesin/Dextromethorphan (Robitussin Dm) 10 ml PO Q4H PRN PRN Reason: Cough Last Admin: 04/17/18 14:30 Dose: 10 ml Lactobacillus Acidophilus (Bacid Acidophilus) 1 cap PO BID [facility] Last Admin: 04/17/18 10:01 Dose: 1 cap Lidocaine (Lidoderm) 1 ea TD DAILY [facility] Last Admin: 04/17/18 10:01 Dose: 1 ea Oxycodone/Acetaminophen (Percocet 5/325 Mg Tab) 1 tab PO Q6H PRN PRN Reason: Pain, severe (8-10) Stop: 04/19/18 18:30 Last Admin: 04/17/18 16:16 Dose: 1 tab Tamsulosin HCl (Flomax) 0.4 mg PO DAILY [facility] Last Admin: 04/17/18 10:02 Dose: 0.4 mg - Labs Labs: 04/17/18 06:30 04/17/18 06:30 PT 14.3 SECONDS (9.4-12.5) H 04/15/18 00:00 INR 1.25 04/15/18 00:00 APTT 46.9 Seconds (25.1-36.5) H 04/15/18 00:00 - Constitutional Appears: Well, No Acute Distress - Head Exam Head Exam: ATRAUMATIC, NORMAL INSPECTION, NORMOCEPHALIC - Eye Exam Eye Exam: EOMI, Normal appearance, PERRL Pupil Exam: NORMAL ACCOMODATION, PERRL - ENT Exam ENT Exam: Mucous Membranes Moist, Normal Exam - Neck Exam Neck Exam: Full ROM, Normal Inspection. absent: Lymphadenopathy - Respiratory Exam Respiratory Exam: Clear to Ausculation Bilateral, NORMAL BREATHING PATTERN. absent: Rales, Rhonchi, Wheezes, Respiratory Distress, Stridor - Cardiovascular Exam Cardiovascular Exam: REGULAR RHYTHM, +S1, +S2. absent: Murmur - GI/Abdominal Exam GI & Abdominal Exam: Soft, Tenderness (Mild tenderness to palpation at RLQ. Chronic. ), Normal Bowel Sounds - Extremities Exam Extremities Exam: Pedal Edema (+2 pitting edema bilaterally. ). absent: Full ROM (Limited ROM of left lower extremity. ), Joint Swelling, Tenderness - Back Exam Back Exam: NORMAL INSPECTION - Neurological Exam Neurological Exam: Alert, Awake, Oriented x3 Neuro motor strength exam: Left Upper Extremity: 5, Right Upper Extremity: 5, Left Lower Extremity: 4, Right Lower Extremity: 5 - Skin Skin Exam: Dry, Intact, Normal Color, Warm Assessment and Plan - Assessment and Plan (Free Text) Assessment: Patient is a 62 y/o M with PMHx of DVT (previously on Eliquis), BPH, Anemia, and C. diff who presented to the ED for mechanical falls x3. Patient was unsure if he had any associated dizziness with the falls. Patient has associated neck/ back pain (chronic). Head CT negative for acute hemorrhage. C-spine CT and Lumbar Spine CT were negative for acute fracture; there was only evidence for post-surgical changes/fusions. CXR negative. Patient had an episode of bradycardia but it resolved with negative troponins. Because the etiology of the fall is unclear, Neurology consulted to r/o non-mechanical causes. Plan: Mechanical Fall vs near-syncope - Based on history, likely mechanical due to rolling walker malfunction; d/w patient case coordinator (see below) - Neurology recs appreciated, patient is cleared from a neurology standpoint; origin of fall is less likely to be due to near syncope - Carotid US (04/15): 20-39% stenosis of bilateral ICA. - ECHO (04/15): 53% EF. Moderate calcified aortic valve. Aortic sclerosis vs. mild . - Hip/Pelvis XR: no fractures. - Orthostatics vitals within normal limits - CT Head: negative for intracranial hemorrhage or bleed - C-spine CT: no fracture; post-surgical changes - Lumbar spine CT: no fracture; post-surgical changes - CXR: no infiltrate or effusion Lower Extremity Pain with History of Prior DVT in Left Lower Extremity - Venous doppler lower extremity (04/16): occlusive thrombus in the left femoral vein. Partially recannulized thrombus in the left popliteal vein. - Based on recent venous doppler findings, patient should be evaluated by Dr. Chilango Hardin prior to hospital discharge - Patient needs to f/u with production packager outpatient for workup for his hypercoaguable state - Bruising of lower extremities bilaterally; patient has been taking Eliquis 5mg PO ([facility]) - c/w Eliquis 5 mg PO BID (home med) - History of L-hip replacement (2015) possibly related to the cause of thrombus - c/w PT Chronic, Mild Right Sided Abdominal Pain - R-sided abdominal tenderness, no signs of rebound tenderness or acute abdomen - f/u with GI outpatient - Abdominal US (04/16): unremarkable. - AST/ALT 31/32, vital signs stable Episode of Sinus bradycardia - resolved - EKG (04/15): HR 58 with possible incomplete L-BBB - HR has been in the 70s - troponins negative x3 Hypokalemia likely 2/2 diarrhea - resolved - K is 3.9 (04/17) - K was 2.9 in ED; given K-Dur 40 mEq stat and one time dose - No EKG changes HLD - c/w Lipitor BPH - c/w Flomax home med - No indications of urinary obstruction [employer]: Attempted to order new rolling walker for patient, but based on documentation, patient was not eligible. Patient is instructed to call company for new rolling walker. Dispo: Patient scheduled for clinic appointment for May 02 at 2 pm. Continue to manage patient on the floor. Case was discussed and reviewed with Attending Physician Dr. Leiva. <Cici Leiva - Last Filed: 04/18/18 08:05> Objective - Vital Signs/Intake and Output Vital Signs (last 24 hours): Temp Pulse Resp BP Pulse Ox 97.9 F 94 H 18 142/92 H 99 04/18/18 06:00 04/18/18 06:00 04/18/18 06:00 04/18/18 06:00 04/18/18 06:00 Intake and Output: 04/18/18 04/18/18 06:59 18:59 Intake Total 800 Balance 800 - Medications Medications: Current Medications Apixaban (Eliquis) 5 mg PO BID [facility] PRN Reason: Protocol Last Admin: 04/17/18 17:54 Dose: 5 mg Atorvastatin Calcium (Lipitor) 10 mg PO HS [facility] Last Admin: 04/17/18 22:01 Dose: 10 mg Cholecalciferol (Vitamin D) 2,000 intlu PO DAILY [facility] Last Admin: 04/17/18 10:02 Dose: 2,000 intlu Guaifenesin/Dextromethorphan (Robitussin Dm) 10 ml PO Q4H PRN PRN Reason: Cough Last Admin: 04/18/18 07:09 Dose: 10 ml Lactobacillus Acidophilus (Bacid Acidophilus) 1 cap PO BID [facility] Last Admin: 04/17/18 17:54 Dose: 1 cap Lidocaine (Lidoderm) 1 ea TD DAILY [facility] Last Admin: 04/17/18 10:01 Dose: 1 ea Oxycodone/Acetaminophen (Percocet 5/325 Mg Tab) 1 tab PO Q6H PRN PRN Reason: Pain, severe (8-10) Stop: 04/19/18 18:30 Last Admin: 04/18/18 04:33 Dose: 1 tab Tamsulosin HCl (Flomax) 0.4 mg PO DAILY [facility] Last Admin: 04/17/18 10:02 Dose: 0.4 mg - Labs Labs: 04/18/18 07:00 04/17/18 06:30 PT 14.3 SECONDS (9.4-12.5) H 04/15/18 00:00 INR 1.25 04/15/18 00:00 APTT 46.9 Seconds (25.1-36.5) H 04/15/18 00:00 Attending/Attestation - Attestation I have personally seen and examined this patient.: Yes I have fully participated in the care of the patient.: Yes I have reviewed all pertinent clinical information, including history, physical exam and plan: Yes Notes (Text): Patient seen and examined by me at 12:30PM with resident 04/17/18. Case including HPI, physical exam, and assessment and plan discussed with resident. Agree with above with following additions/corrections. Patient is 62-year-old male with past medical history significant for DVT of left lower extremity, left hip arthroplasty, C-spine fusion surgery, BPH, and iron deficiency anemia that presented to the emergency room with mechanical fall , dizziness, neck and back pain. Patient states he is feeling better. Dizziness/lightheadedness resolved. He denies any headaches or change in vision. Still with chronic neck pain and back pain. Also still with chronic right sided abdominal pain. No chest pain or shortness of breath. No fevers or chills. No nausea or vomiting. No dysuria. Bowel movements are now formed. Physical exam: General: Awake and alert, lying in bed in no acute distress HEENT: Normocephalic, atraumatic. Extraocular muscles intact. No scleral icterus. Oropharynx is pink and moist. No pharyngeal erythema or exudate appreciated. Neck is supple. Cardiovascular: Normal rhythm. Normal S1, S2. No murmurs, rubs, or gallops appreciated Pulmonary: Normal respiratory effort. No rhonchi, rales or wheezing appreciated. Gastrointestinal: Soft, postive right sided abdominal tenderness with deep palpation. Positive bowel sounds all 4 quadrants, no guarding. Musculoskeletal: Moves all extremities, positive lower extremity edema. Central nervous system: CN2-12 grossly intact. AAO x 3 Dermatologic: Skin warm and dry Assessment and plan: Patient is 62-year-old male with past medical history significant for DVT of left lower extremity, left hip arthroplasty, C-spine fusion surgery, BPH, and iron deficiency anemia that presented to the emergency room with mechanical fall, dizziness, neck and back pain. 1. Mechanical fall. Possible near syncope. May be secondary to pain medications and ambien. Patient counseled on reducing these medicatons. Carotid dopplers per radiologist show bilateral 20-39% proximal ICA stenoses. Continue Eliquis and Lipitor. 2D echo per cathodic protection technician shows left ventricle is normal size, normal left ventricular wall thickness, left ventricular function is normal, left ventricular ejection fraction is within normal range (please see official read for full details). Head CT per radiologist shows no bleed. Cervical spine CT per radiologist shows postsurgical changes, no acute fracture. Lumbar spine CT per radiologist showed postsurgical changes in the lower lumbar spine, no evidence of acute fracture. Left hip/pelvis x-ray per radiologist shows left hip prosthesis, no acute findings. Continue PT. Neurology following, recommendations appreciated. Orthostatic vitals within normal limits. 2. Hypokalemia. Resolved. Likely secondary to diarrhea. Continue to monitor. 3. Diarrhea. Resolved. C. difficile toxin negative 4. Bilateral lower extremity edema. Chronic. Patient has history of DVT in left lower extremity. Lower extremity venous dopplers per radiologist shows occlusive thrombus in the left femoral vein; partially recannulized comes in the left popliteal vein. Continue home Eliquis. IR consulted for possible thrombectomy 5. BPH. Continue Flomax 6. Hyperlipidemia. Continue home Lipitor. 7. Chronic neck and back pain. Continue PT. Lidoderm patch 8. Vitamin D deficiency. Continue oral vitamin D supplement. 9. Right sided chronic abdominal pain. Per patient, he was suppose to get colonoscopy as outpatient but has not followed up. Abdominal ultrasound per radiology shows unremarkable abdominal sonogram. Case was discussed in detail with patient regarding current diagnosis and treatment plan.
[2018-04-18] MEDS: Oxycodone/Acetaminophen 5/325 mg Tab PO PRN ×4 (04:33→23:09)
[2018-04-18] MEDS: guaiFENesin DM 200 mg-20 mg/10 ml UD PO PRN (07:09)
[2018-04-18 07:27] LABS: HEMOGLOBIN 11.8 g/dL (14.0-18.0); MEAN CELL VOLUME 71.4 fl (80.0-105.0); MEAN CORPUSCULAR HEMOGLOBIN 23.1 pg (25.0-35.0); MEAN CORPUSCULAR HGB CONC 32.3 g/dl (31.0-37.0); MEAN PLATELET VOLUME 11.7 fl (7.0-11.0); RBC 5.11 10^6/uL (3.5-6.1); RED CELL DISTRIBUTION WIDTH 15.2 % (11.5-14.5); WHITE BLOOD COUNT 4.4 10^3/ul (4.5-11.0)
[2018-04-18 08:19] LABS: ALB/GLOB RATIO 1.2 (1.1-1.8); ALBUMIN 3.8 g/dL (3.0-4.8); ALT/SGPT 28 U/L (7-56); AST/SGOT 24 U/L (17-59); BLOOD UREA NITROGEN 7 mg/dL (7-21); CALCIUM 8.5 mg/dL (8.4-10.5); GFR NON-AFRICAN AMERICAN > 60
[2018-04-18] MEDS: Cholecalciferol 1,000 INTLU TAB PO SCH (09:32)
[2018-04-18] MEDS: Lactobacillus Acidophilus 500 MU Cap PO SCH ×2 (09:32→17:32)
[2018-04-18] MEDS: Lidocaine 5% Patch TD SCH (09:37)
--- NOTE | 2018-04-18 18:42 | CP.PCM.PN ---
<Arban Batres - Last Filed: 04/18/18 18:38> Subjective - Date & Time of Evaluation Date of Evaluation: 04/18/18 Time of Evaluation: 07:00 - Subjective Subjective: Abran Batres PGY1 Medicine Progress Note for Dr. Leiva Patient was seen and examined at bedside this morning. Patient still has chronic neck and back pain, lower extremity pain, and mild abdominal tenderness. Unchanged from yesterday. No overnight changes. Denies cp, sob, n/v/ d. VSS. A full 12 point ROS was conducted and unremarkable except as stated above. Objective - Vital Signs/Intake and Output Vital Signs (last 24 hours): Temp Pulse Resp BP Pulse Ox 98 F 65 20 122/78 95 04/18/18 14:00 04/18/18 14:00 04/18/18 14:00 04/18/18 14:00 04/18/18 14:00 Intake and Output: 04/18/18 04/18/18 06:59 18:59 Intake Total 800 1440 Output Total 800 Balance 800 640 - Medications Medications: Current Medications Apixaban (Eliquis) 5 mg PO BID [facility] PRN Reason: Protocol Last Admin: 04/18/18 17:34 Dose: 5 mg Atorvastatin Calcium (Lipitor) 10 mg PO HS [facility] Last Admin: 04/17/18 22:01 Dose: 10 mg Cholecalciferol (Vitamin D) 2,000 intlu PO DAILY [facility] Last Admin: 04/18/18 09:32 Dose: 2,000 intlu Guaifenesin/Dextromethorphan (Robitussin Dm) 10 ml PO Q4H PRN PRN Reason: Cough Last Admin: 04/18/18 07:09 Dose: 10 ml Lactobacillus Acidophilus (Bacid Acidophilus) 1 cap PO BID [facility] Last Admin: 04/18/18 17:32 Dose: 1 cap Lidocaine (Lidoderm) 1 ea TD DAILY [facility] Last Admin: 04/18/18 09:37 Dose: 1 ea Oxycodone/Acetaminophen (Percocet 5/325 Mg Tab) 1 tab PO Q6H PRN PRN Reason: Pain, severe (8-10) Stop: 04/19/18 18:30 Last Admin: 04/18/18 17:32 Dose: 1 tab Tamsulosin HCl (Flomax) 0.4 mg PO DAILY [facility] Last Admin: 04/18/18 09:32 Dose: 0.4 mg - Labs Labs: 04/18/18 07:00 04/18/18 07:00 PT 14.3 SECONDS (9.4-12.5) H 04/15/18 00:00 INR 1.25 04/15/18 00:00 APTT 46.9 Seconds (25.1-36.5) H 04/15/18 00:00 - Constitutional Appears: Well - Head Exam Head Exam: ATRAUMATIC, NORMAL INSPECTION, NORMOCEPHALIC - Eye Exam Eye Exam: EOMI, Normal appearance, PERRL Pupil Exam: NORMAL ACCOMODATION, PERRL - ENT Exam ENT Exam: Mucous Membranes Moist, Normal Exam - Neck Exam Neck Exam: Full ROM, Normal Inspection. absent: Lymphadenopathy - Respiratory Exam Respiratory Exam: Clear to Ausculation Bilateral, NORMAL BREATHING PATTERN. absent: Rales, Rhonchi, Wheezes, Respiratory Distress, Stridor - Cardiovascular Exam Cardiovascular Exam: REGULAR RHYTHM, +S1, +S2. absent: Murmur - GI/Abdominal Exam GI & Abdominal Exam: Soft, Tenderness, Normal Bowel Sounds - Extremities Exam Extremities Exam: Tenderness. absent: Calf Tenderness, Full ROM, Joint Swelling - Neurological Exam Neurological Exam: Alert, Awake, Normal Gait, Oriented x3 - Skin Skin Exam: Dry, Intact, Normal Color, Warm Assessment and Plan - Assessment and Plan (Free Text) Assessment: Patient is a 62 y/o M with PMHx of DVT (previously on Eliquis), BPH, Anemia, and C. diff who presented to the ED for mechanical falls x3. Patient has associated neck/back pain (chronic). Head CT negative for acute hemorrhage. C- spine CT and Lumbar Spine CT were negative for acute fracture; there was only evidence for post-surgical changes/fusions. Because the etiology of the fall is unclear, Neurology was consulted to r/o non-mechanical causes or near-syncope. Patient has an occlusive left-femoral vein thrombus. Plan: Lower Extremity Pain with History of Prior DVT in Left Lower Extremity - f/u IR recs - Venous doppler lower extremity (04/16): occlusive thrombus in the left femoral vein. Partially recannulized thrombus in the left popliteal vein. - Patient needs to f/u with field reporter outpatient for workup for his hypercoaguable state - Bruising of lower extremities bilaterally; patient has been taking Eliquis 5mg PO ([facility]) - c/w Eliquis 5 mg PO BID (home med) - History of L-hip replacement (2015) possibly related to the cause of thrombus - c/w PT Mechanical Fall vs near-syncope - Based on history, likely mechanical due to rolling walker malfunction; d/w case management social worker (see below) - Neurology recs appreciated, patient is cleared from a neurology standpoint; origin of fall is less likely to be due to near syncope - Carotid US (04/15): 20-39% stenosis of bilateral ICA. - ECHO (04/15): 53% EF. Moderate calcified aortic valve. Aortic sclerosis vs. mild . - Hip/Pelvis XR: no fractures. - Orthostatics vitals within normal limits - CT Head: negative for intracranial hemorrhage or bleed - C-spine CT: no fracture; post-surgical changes - Lumbar spine CT: no fracture; post-surgical changes - CXR: no infiltrate or effusion Chronic, Mild Right Sided Abdominal Pain - R-sided abdominal tenderness, no signs of rebound tenderness or acute abdomen - f/u with GI outpatient - Abdominal US (04/16): unremarkable. Episode of Sinus bradycardia - resolved - EKG (04/15): HR 58 with possible incomplete L-BBB - HR has been in the 70s - troponins negative x3 Hypokalemia likely 2/2 diarrhea - resolved - K is 3.9 (04/17) - K was 2.9 in ED; given K-Dur 40 mEq stat and one time dose - No EKG changes HLD - c/w Lipitor BPH - c/w Flomax home med - No indications of urinary obstruction [employer]: Attempted to order new rolling walker for patient, but based on documentation, patient was not eligible. Patient is instructed to call company for new rolling walker. Dispo: Patient scheduled for clinic appointment for May 02 at 2 pm. Continue to manage patient on the floor. Pending evaluation from IR. Case was discussed and reviewed with Attending Physician Dr. Leiva. <Cici Leiva R - Last Filed: 04/19/18 13:34> Objective - Vital Signs/Intake and Output Vital Signs (last 24 hours): Temp Pulse Resp BP Pulse Ox 97.9 F 76 20 126/87 99 04/19/18 06:00 04/19/18 06:00 04/19/18 06:00 04/19/18 06:00 04/19/18 06:00 Intake and Output: 04/19/18 04/19/18 06:59 18:59 Intake Total 420 Output Total 400 Balance 20 - Medications Medications: Current Medications Apixaban (Eliquis) 5 mg PO BID [facility] PRN Reason: Protocol Last Admin: 04/19/18 09:32 Dose: 5 mg Atorvastatin Calcium (Lipitor) 10 mg PO HS [facility] Last Admin: 04/18/18 21:23 Dose: 10 mg Cholecalciferol (Vitamin D) 2,000 intlu PO DAILY [facility] Last Admin: 04/19/18 09:32 Dose: 2,000 intlu Guaifenesin/Dextromethorphan (Robitussin Dm) 10 ml PO Q4H PRN PRN Reason: Cough Last Admin: 04/18/18 07:09 Dose: 10 ml Lactobacillus Acidophilus (Bacid Acidophilus) 1 cap PO BID [facility] Last Admin: 04/19/18 09:32 Dose: 1 cap Lidocaine (Lidoderm) 1 ea TD DAILY [facility] Last Admin: 04/19/18 09:32 Dose: 1 ea Oxycodone/Acetaminophen (Percocet 5/325 Mg Tab) 1 tab PO Q6H PRN PRN Reason: Pain, severe (8-10) Stop: 04/19/18 18:30 Last Admin: 04/19/18 10:34 Dose: 1 tab Tamsulosin HCl (Flomax) 0.4 mg PO DAILY [facility] Last Admin: 04/19/18 09:32 Dose: 0.4 mg - Labs Labs: 04/18/18 07:00 04/18/18 07:00 PT 14.3 SECONDS (9.4-12.5) H 04/15/18 00:00 INR 1.25 04/15/18 00:00 APTT 46.9 Seconds (25.1-36.5) H 04/15/18 00:00 Attending/Attestation - Attestation I have personally seen and examined this patient.: Yes I have fully participated in the care of the patient.: Yes I have reviewed all pertinent clinical information, including history, physical exam and plan: Yes Notes (Text): Patient seen and examined by me at 11:10AM with resident 04/18/18. Case including HPI, physical exam, and assessment and plan discussed with resident. Agree with above with following additions/corrections. Patient is 62-year-old male with past medical history significant for DVT of left lower extremity, left hip arthroplasty, C-spine fusion surgery, BPH, and iron deficiency anemia that presented to the emergency room with mechanical fall , dizziness, neck and back pain. Patient states he is feeling ok. Complains of bilateral lower extremity pain. States pain medications are helping a little. States he was unable to sleep last night. No more dizziness or lightheadedness. No headaches or change in vision. Also complains of chronic neck pain, back pain, and right sided abdominal pain. No chest pain or shorntess of breath. No fevers or chills. No nausea or vomiting. No dysuria. No diarrhea. Physical exam: General: Awake and alert, lying in bed in no acute distress HEENT: Normocephalic, atraumatic. Extraocular muscles intact. No scleral icterus. Oropharynx is pink and moist. No pharyngeal erythema or exudate appreciated. Neck is supple. Cardiovascular: Normal rhythm. Normal S1, S2. No murmurs, rubs, or gallops appreciated Pulmonary: Normal respiratory effort. No rhonchi, rales or wheezing appreciated. Gastrointestinal: Soft, postive right sided abdominal tenderness with deep palpation. Positive bowel sounds all 4 quadrants, no guarding. Musculoskeletal: Moves all extremities, positive bilateral extremity edema and tenderness. Central nervous system: CN2-12 grossly intact. AAO x 3 Dermatologic: Skin warm and dry Assessment and plan: Patient is 62-year-old male with past medical history significant for DVT of left lower extremity, left hip arthroplasty, C-spine fusion surgery, BPH, and iron deficiency anemia that presented to the emergency room with mechanical fall, dizziness, neck and back pain. 1. Bilateral lower extremity edema. Chronic. History of DVT in left lower extremity. Lower extremity venous dopplers per radiologist shows occlusive thrombus in the left femoral vein; partially recannulized comes in the left popliteal vein. Continue Eliquis. IR consulted for possible thrombectomy, pending recommendations. 2. Mechanical fall. Possible near syncope. May be secondary to pain medications and ambien. Patient counseled on reducing these medicatons. Continue Eliquis and Lipitor. Carotid dopplers per radiologist show bilateral 20-39% proximal ICA stenoses. 2D echo per rf manager shows left ventricle is normal size, normal left ventricular wall thickness, left ventricular function is normal, left ventricular ejection fraction is within normal range (please see official read for full details). Head CT per radiologist shows no bleed. Cervical spine CT per radiologist shows postsurgical changes, no acute fracture. Lumbar spine CT per radiologist showed postsurgical changes in the lower lumbar spine, no evidence of acute fracture. Left hip/pelvis x-ray per radiologist shows left hip prosthesis, no acute findings. Continue PT. Neurology following, recommendations appreciated. Orthostatic vitals within normal limits. 3. Hypokalemia. Resolved. Likely secondary to diarrhea. Continue to monitor. 4. Diarrhea. Resolved. C. difficile toxin negative 5. BPH. Continue Flomax 6. Hyperlipidemia. Continue Lipitor. 7. Chronic neck and back pain. Continue PT. Lidoderm patch 8. Vitamin D deficiency. Continue oral vitamin D supplement. 9. Right sided chronic abdominal pain. Per patient, he was suppose to get colonoscopy as outpatient but has not followed up. Abdominal ultrasound per radiology shows unremarkable abdominal sonogram. Will need to follow up outpatient with GI. Case was discussed in detail with patient regarding current diagnosis and treatment plan.
[2018-04-19] MEDS: Oxycodone/Acetaminophen 5/325 mg Tab PO PRN ×3 (05:01→17:00)
--- NOTE | 2018-04-19 09:24 | CP.PCM.PN ---
<Venessa Espinosa - Last Filed: 04/19/18 10:51> Subjective - Date & Time of Evaluation Date of Evaluation: 04/19/18 Time of Evaluation: 09:18 - Subjective Subjective: Venessa Espinosa DO, PGY-2: Progress Note for Dr. Cici Leiva Patient was seen and examined at bedside. Patient reports he was able to sleep with the Ambien last night; however, woke up in the middle up the night secondary to pain in his bilateral lower extremities. Otherwise, he reports tolerating his diet, passing bowel movements, and denies any chest pain, dyspnea , nausea, vomiting, or diarrhea. We discussed with him that the thrombus in the left lower extremity is occlusive and more likely acute rather than chronic, as per Dr. Magdaleno Oneal Interventional Radiologist assessment of the case. We therefore consulted a music leader given it appears he developed a new blood clot while on Eliquis. Objective - Vital Signs/Intake and Output Vital Signs (last 24 hours): Temp Pulse Resp BP Pulse Ox 97.9 F 76 20 126/87 99 04/19/18 06:00 04/19/18 06:00 04/19/18 06:00 04/19/18 06:00 04/19/18 06:00 Intake and Output: 04/19/18 04/19/18 06:59 18:59 Intake Total 420 Output Total 400 Balance 20 - Medications Medications: Current Medications Apixaban (Eliquis) 5 mg PO BID [facility] PRN Reason: Protocol Last Admin: 04/18/18 17:34 Dose: 5 mg Atorvastatin Calcium (Lipitor) 10 mg PO HS [facility] Last Admin: 04/18/18 21:23 Dose: 10 mg Cholecalciferol (Vitamin D) 2,000 intlu PO DAILY [facility] Last Admin: 04/18/18 09:32 Dose: 2,000 intlu Guaifenesin/Dextromethorphan (Robitussin Dm) 10 ml PO Q4H PRN PRN Reason: Cough Last Admin: 04/18/18 07:09 Dose: 10 ml Lactobacillus Acidophilus (Bacid Acidophilus) 1 cap PO BID [facility] Last Admin: 04/18/18 17:32 Dose: 1 cap Lidocaine (Lidoderm) 1 ea TD DAILY [facility] Last Admin: 04/18/18 09:37 Dose: 1 ea Oxycodone/Acetaminophen (Percocet 5/325 Mg Tab) 1 tab PO Q6H PRN PRN Reason: Pain, severe (8-10) Stop: 04/19/18 18:30 Last Admin: 04/19/18 05:01 Dose: 1 tab Tamsulosin HCl (Flomax) 0.4 mg PO DAILY [facility] Last Admin: 04/18/18 09:32 Dose: 0.4 mg - Labs Labs: 04/18/18 07:00 04/18/18 07:00 PT 14.3 SECONDS (9.4-12.5) H 04/15/18 00:00 INR 1.25 04/15/18 00:00 APTT 46.9 Seconds (25.1-36.5) H 04/15/18 00:00 - Constitutional Appears: Well, Non-toxic - Head Exam Head Exam: ATRAUMATIC, NORMOCEPHALIC - Eye Exam Eye Exam: EOMI, Normal appearance - ENT Exam ENT Exam: Mucous Membranes Moist, Normal Oropharynx - Neck Exam Neck Exam: Normal Inspection - Respiratory Exam Respiratory Exam: Clear to Ausculation Bilateral, NORMAL BREATHING PATTERN. absent: Accessory Muscle Use - Cardiovascular Exam Cardiovascular Exam: RRR, +S1, +S2 - GI/Abdominal Exam GI & Abdominal Exam: Soft, Normal Bowel Sounds. absent: Distended, Guarding - Extremities Exam Additional comments: bilateral lower extremity edema, left greater than right - Neurological Exam Neurological Exam: Alert, Awake. absent: Normal Gait (abnormal gait) - Psychiatric Exam Psychiatric exam: Normal Affect, Normal Mood - Skin Skin Exam: Dry, Intact, Normal Color, Warm Assessment and Plan - Assessment and Plan (Free Text) Assessment: 62 year old of male with a past medical history of DVT in the left lower extremity-currently on Eliquis, IVC filter, Benign Prostatic Hyperplasia, Anemia , and C. difficile colitis who presented to the ED s/p mechanical fall. Head CT was negative for acute hemorrhage. CT of cervical and lumbar spine were negative for acute fracture. Neurology was consulted who recommended continuing physical therapy. During the course of the patient's hospital stay, he complained of worsening left lower extremity pain and underwent a doppler venous US of the bilateral lower extremities that showed an occlusive left- femoral vein thrombus as well as a partially recannulized thrombus in the left popliteal. Interventional radiology was consulted, Dr. Magdaleno Oneal, who recommended a Hematology consult given it appears the patient has developed a new blood clot based on the US findings while on the oral anticoagulant, Eliquis. Lower Extremity DVT on a patient with a PMH of LLE thrombus - IR recommends hematology consult - Venous doppler lower extremity (04/16): occlusive thrombus in the left femoral vein. Partially recannulized thrombus in the left popliteal vein. - Patient also needs to f/u with music leader outpatient for workup for his hypercoaguable state - Bruising of lower extremities bilaterally; patient has been taking Eliquis 5mg PO BID ([facility]) - c/w Eliquis 5 mg PO BID (home med) - History of L-hip replacement (2015) possibly related to the cause of thrombus - c/w PT Mechanical Fall vs near-syncope - Based on history, likely mechanical due to rolling walker malfunction; d/w case liner (see below) - Neurology recs appreciated, patient is cleared from a neurology standpoint; origin of fall is less likely to be due to near syncope - Carotid US (04/15): 20-39% stenosis of bilateral ICA. - ECHO (04/15): 53% EF. Moderate calcified aortic valve. Aortic sclerosis vs. mild . - Hip/Pelvis XR: no fractures. - Orthostatics vitals within normal limits - CT Head: negative for intracranial hemorrhage or bleed - C-spine CT: no fracture; post-surgical changes - Lumbar spine CT: no fracture; post-surgical changes - CXR: no infiltrate or effusion Chronic, Mild Right Sided Abdominal Pain - R-sided abdominal tenderness, no signs of rebound tenderness or acute abdomen - f/u with GI outpatient for age appropriate screening colonoscopy - Abdominal US (04/16): unremarkable. Episode of Sinus bradycardia - resolved - EKG (04/15): HR 58 with possible incomplete L-BBB - HR has been in the 70s - troponins negative x3 Hypokalemia likely 2/2 diarrhea - resolved - K is 3.9 (04/17) - K was 2.9 in ED; given K-Dur 40 mEq stat and one time dose - No EKG changes HLD - c/w Lipitor BPH - c/w Flomax home med - No indications of urinary obstruction [employer]: Attempted to order new rolling walker for patient, but based on documentation, patient was not eligible. Patient is instructed to call company for new rolling walker. Dispo: Patient scheduled for clinic appointment for May 02 at 2 pm. Continue to manage patient on the floor. Case was reviewed and discussed with Attending Physician, Dr. Leiva. <Cici Leiva - Last Filed: 04/19/18 18:55> Objective - Vital Signs/Intake and Output Vital Signs (last 24 hours): Temp Pulse Resp BP Pulse Ox 98.6 F 85 20 114/72 97 04/19/18 16:29 04/19/18 16:29 04/19/18 16:29 04/19/18 16:29 04/19/18 16:29 Intake and Output: 04/19/18 04/19/18 06:59 18:59 Intake Total 420 Output Total 400 Balance 20 - Medications Medications: Current Medications Apixaban (Eliquis) 5 mg PO BID [facility] PRN Reason: Protocol Last Admin: 04/19/18 16:59 Dose: 5 mg Atorvastatin Calcium (Lipitor) 10 mg PO HS [facility] Last Admin: 04/18/18 21:23 Dose: 10 mg Cholecalciferol (Vitamin D) 2,000 intlu PO DAILY [facility] Last Admin: 04/19/18 09:32 Dose: 2,000 intlu Guaifenesin/Dextromethorphan (Robitussin Dm) 10 ml PO Q4H PRN PRN Reason: Cough Last Admin: 04/18/18 07:09 Dose: 10 ml Lactobacillus Acidophilus (Bacid Acidophilus) 1 cap PO BID [facility] Last Admin: 04/19/18 16:59 Dose: 1 cap Lidocaine (Lidoderm) 1 ea TD DAILY [facility] Last Admin: 04/19/18 09:32 Dose: 1 ea Tamsulosin HCl (Flomax) 0.4 mg PO DAILY [facility] Last Admin: 04/19/18 09:32 Dose: 0.4 mg - Labs Labs: 04/18/18 07:00 04/18/18 07:00 PT 14.3 SECONDS (9.4-12.5) H 04/15/18 00:00 INR 1.25 04/15/18 00:00 APTT 46.9 Seconds (25.1-36.5) H 04/15/18 00:00 Attending/Attestation - Attestation I have personally seen and examined this patient.: Yes I have fully participated in the care of the patient.: Yes I have reviewed all pertinent clinical information, including history, physical exam and plan: Yes Notes (Text): Patient seen and examined by me at 8:40AM with resident. Case including HPI, physical exam, and assessment and plan discussed with resident. Agree with above with following additions/corrections. Patient is 62-year-old male with past medical history significant for DVT of left lower extremity, left hip arthroplasty, C-spine fusion surgery, BPH, and iron deficiency anemia that presented to the emergency room with mechanical fall , dizziness, neck and back pain. Patient states he is having pain. Complains of bilateral lower extremity pain but feels the left is worse than right. Pain medications are helping. He denies dizziness or lightheadedness. No headaches or change in vision. No chest pain or shorntess of breath. No fevers or chills. No nausea or vomiting. No dysuria. No diarrhea. Has chronic neck, back and right abdominal pain. Physical exam: General: Awake and alert, lying in bed in no acute distress HEENT: Normocephalic, atraumatic. Extraocular muscles intact. No scleral icterus. Oropharynx is pink and moist. No pharyngeal erythema or exudate appreciated. Neck is supple. Cardiovascular: Normal rhythm. Normal S1, S2. No murmurs, rubs, or gallops appreciated Pulmonary: Normal respiratory effort. No rhonchi, rales or wheezing appreciated. Gastrointestinal: Soft, postive right sided abdominal tenderness with deep palpation. Positive bowel sounds all 4 quadrants, no guarding. Musculoskeletal: Moves all extremities, positive bilateral extremity edema and tenderness. Central nervous system: CN2-12 grossly intact. AAO x 3 Dermatologic: Skin warm and dry Assessment and plan: Patient is 62-year-old male with past medical history significant for DVT of left lower extremity, left hip arthroplasty, C-spine fusion surgery, BPH, and iron deficiency anemia that presented to the emergency room with mechanical fall, dizziness, neck and back pain. 1. Bilateral lower extremity edema. Chronic. History of DVT in left lower extremity. Lower extremity venous dopplers per radiologist shows occlusive thrombus in the left femoral vein; partially recannulized comes in the left popliteal vein. Continue Eliquis. Discussed case with IR Dr. Oneal who feels patient does not need thrombectomy. Patient may need change in anticoagulant. Aquatic Director consulted, follow up recommendations. 2. Mechanical fall. Possible near syncope. May be secondary to pain medications and ambien. Patient counseled on reducing these medicaton use. Continue Eliquis and Lipitor. Carotid dopplers per radiologist show bilateral 20-39% proximal ICA stenoses. 2D echo per career services representative shows left ventricle is normal size, normal left ventricular wall thickness, left ventricular function is normal, left ventricular ejection fraction is within normal range (please see official read for full details). Head CT per radiologist shows no bleed. Cervical spine CT per radiologist shows postsurgical changes, no acute fracture. Lumbar spine CT per radiologist showed postsurgical changes in the lower lumbar spine, no evidence of acute fracture. Left hip/pelvis x-ray per radiologist shows left hip prosthesis, no acute findings. Continue PT. Neurology following, recommendations appreciated. Orthostatic vitals within normal limits. 3. Hypokalemia. Resolved. Likely secondary to diarrhea. Continue to monitor. 4. Diarrhea. Resolved. C. difficile toxin negative 5. BPH. Continue Flomax 6. Hyperlipidemia. Continue Lipitor. 7. Chronic neck and back pain. Continue with Lidoderm patch. Percocet prn severe pain. 8. Vitamin D deficiency. Continue oral vitamin D supplement. 9. Right sided chronic abdominal pain. Per patient, he was suppose to get colonoscopy as outpatient but has not followed up. Abdominal ultrasound per radiology shows unremarkable abdominal sonogram. Will need to follow up outpatient with GI. Case was discussed in detail with patient regarding current diagnosis and treatment plan.
[2018-04-19] MEDS: Lactobacillus Acidophilus 500 MU Cap PO SCH ×2 (09:32→16:59)
[2018-04-19] MEDS: Lidocaine 5% Patch TD SCH (09:32)
[2018-04-19] MEDS: Cholecalciferol 1,000 INTLU TAB PO SCH (09:32)
--- NOTE | 2018-04-19 17:15 | CP.PCM.CON ---
History of Present Illness - History of Present Illness History of Present Illness: 62 year old male patient with history of multiple VTEs, L hip arthroplasty, C spine fusion surgery, BPH, who was admitted for fall. Hematology consulted for hypercoagulable state and new LLE VTE while on eliquis. Patient states that 10 years ago he was found to have PE and DVT of the LLE and was placed on Coumadin. He was continued on anticoagulation for 5 years until it was discontinued. He then underwent left hip replacement 2 years ago and again had another blood clot, which is when he was started on eliquis and had been taking it since. Currenlty he is complaining of left lower leg pain and swelling. He underwent a LE duplex study which revealed an acute VTE while on eliquis. Patient reports 100% compliance to anticoagulation therapy. He denies any chest pain, fevers, chills, night sweats, weight loss, hemoptysis, chest pain, SOB, abdominal pain, nausea, vomiting, dysuria or frequency. He states that his son was recently found to have a blood clot after undergoing surgery, but denies any other family history of blood clots. PMH: DVT, BPH, iron deficiency anemia, c.diff PSH: back and spine surgery, L hip replacement All: NKDA SH: Denies tobacco, EtOH, or drug use FH: Dad- from [place] at 63yo, Mom- possible pacreatic cancer at 78 Review of Systems - Review of Systems Systems not reviewed;Unavailable: Acuity of Condition - Constitutional Constitutional: absent: Daytime Sleepiness, Excessive Sweating, Fatigue, Fever - EENT Eyes: absent: Blind Spots, Blurred Vision, Exophthalmos Ears: absent: Decreased Hearing, Ear Discharge Nose/Mouth/Throat: absent: Post Nasal Drip, Sinus Pain, Sore Throat - Cardiovascular Cardiovascular: Edema. absent: Chest Pain, Chest Pain at Rest, Chest Pain with Activity, Dyspnea, Dyspnea on Exertion, Irregular Heart Rhythm - Respiratory Respiratory: Cough. absent: Dyspnea, Hemoptysis, Dyspnea on Exertion, Wheezing - Gastrointestinal Gastrointestinal: absent: Abdominal Pain, Belching, Change in Bowel Habits, Constipation, Melena, Nausea - Genitourinary Genitourinary: absent: Difficulty Urinating, Dysuria, Flank Pain - Musculoskeletal Musculoskeletal: Joint Swelling, Limited Range of Motion, Neck Pain. absent: Abnormal Gait - Integumentary Integumentary: absent: Rash, Skin Pain - Neurological Neurological: absent: Abnormal Gait, Confusion, Headaches - Psychiatric Psychiatric: Depression - Hematologic/Lymphatic Hematologic: absent: Easy Bleeding, Easy Bruising, Lymphadenopathy Past Patient History - Infectious Disease Hx of Infectious Diseases: None - Tetanus Immunizations Tetanus Immunization: Unknown - Past Medical History & Family History Past Medical History?: Yes - Past Social History Smoking Status: Never Smoked Chewing Tobacco Use: No Cigar Use: No Occupation: unemployed Alcohol: None Drugs: Denies - CARDIAC Hx Cardiac Disorders: Yes - PULMONARY Hx Respiratory Disorders: Yes Hx Pneumonia: Yes - NEUROLOGICAL Hx Neurological Disorder: No - HEENT Hx HEENT Problems: No - RENAL Hx Chronic Kidney Disease: No - ENDOCRINE/METABOLIC Hx Endocrine Disorders: No - HEMATOLOGICAL/ONCOLOGICAL Hx Blood Disorders: No - INTEGUMENTARY Hx Dermatological Problems: No - MUSCULOSKELETAL/RHEUMATOLOGICAL Hx Musculoskeletal Disorders: Yes Other/Comment: Falls, L hip r/p, spine sx, h/o clot on left leg - GASTROINTESTINAL Hx Gastrointestinal Disorders: Yes Hx Nausea: Yes Hx Vomiting: Yes - GENITOURINARY/GYNECOLOGICAL Hx Genitourinary Disorders: Yes (HX SCROTAL INFECTION) Hx Prostate Problems: Yes - PSYCHIATRIC Hx Psychophysiologic Disorder: No Hx Depression: No Hx Substance Use: No - SURGICAL HISTORY Hx Orthopedic Surgery: Yes (spine sx 3-4 years ago) Other/Comment: L hip r/p - ANESTHESIA Hx Anesthesia: Yes Hx Anesthesia Reactions: Yes Hx Malignant Hyperthermia: No Meds Home Medications: Home Medication List Medication Instructions Recorded Confirmed Type Apixaban [Eliquis] 5 mg PO BID tab 04/17/18 Rx Cholecalciferol [Vitamin D 1000 IU] 2,000 intlu PO DAILY tab 04/17/18 Rx Lactobacillus Acidophilus [Bacid 1 cap PO BID #0 cap 04/17/18 Rx Acidophilus] Allergies/Adverse Reactions: Allergies Allergy/AdvReac Type Severity Reaction Status Date / Time No Known Allergies Allergy Verified 04/14/18 23:16 - Medications Medications: Current Medications Apixaban (Eliquis) 5 mg PO BID [facility] PRN Reason: Protocol Last Admin: 04/19/18 09:32 Dose: 5 mg Atorvastatin Calcium (Lipitor) 10 mg PO HS [facility] Last Admin: 04/18/18 21:23 Dose: 10 mg Cholecalciferol (Vitamin D) 2,000 intlu PO DAILY [facility] Last Admin: 04/19/18 09:32 Dose: 2,000 intlu Guaifenesin/Dextromethorphan (Robitussin Dm) 10 ml PO Q4H PRN PRN Reason: Cough Last Admin: 04/18/18 07:09 Dose: 10 ml Lactobacillus Acidophilus (Bacid Acidophilus) 1 cap PO BID [facility] Last Admin: 04/19/18 09:32 Dose: 1 cap Lidocaine (Lidoderm) 1 ea TD DAILY [facility] Last Admin: 04/19/18 09:32 Dose: 1 ea Oxycodone/Acetaminophen (Percocet 5/325 Mg Tab) 1 tab PO Q6H PRN PRN Reason: Pain, severe (8-10) Stop: 04/19/18 18:30 Last Admin: 04/19/18 10:34 Dose: 1 tab Tamsulosin HCl (Flomax) 0.4 mg PO DAILY [facility] Last Admin: 04/19/18 09:32 Dose: 0.4 mg Physical Exam - Constitutional Appears: Well, Non-toxic, No Acute Distress - Head Exam Head Exam: ATRAUMATIC, NORMAL INSPECTION, NORMOCEPHALIC - Eye Exam Eye Exam: EOMI, Normal appearance, PERRL - ENT Exam ENT Exam: Mucous Membranes Moist, Normal Exam - Neck Exam Neck exam: Positive for: Normal Inspection. Negative for: Lymphadenopathy - Respiratory Exam Respiratory Exam: Clear to Auscultation Bilateral, NORMAL BREATHING PATTERN - Cardiovascular Exam Cardiovascular Exam: REGULAR RHYTHM, +S1, +S2 - GI/Abdominal Exam GI & Abdominal Exam: Normal Bowel Sounds, Soft - Rectal Exam Rectal Exam: Deferred - Extremities Exam Additional comments: pitting edema of b/l lower extremities, calf tenderness b/l worse on L>R. - Back Exam Back exam: NORMAL INSPECTION - Neurological Exam Neurological exam: Alert, CN II-XII Intact, Oriented x3 - Psychiatric Exam Psychiatric exam: Normal Affect, Normal Mood - Skin Skin Exam: Intact, Normal Color, Warm Results - Vital Signs Recent Vital Signs: Last Vital Signs Temp 98.6 F 04/19/18 16:29 Pulse 85 04/19/18 16:29 Resp 20 04/19/18 16:29 BP 114/72 04/19/18 16:29 Pulse Ox 97 04/19/18 16:29 - Labs Result Diagrams: 04/18/18 07:00 04/18/18 07:00 Assessment & Plan - Assessment and Plan (Free Text) Assessment: In summary, this is a 62 year old male patient with multiple VTEs in the past now found to have new LLE VTE while on eliquis. The etiology of his hypercoagualbe state is unclear at this time and will require further testing. He needs to switch his current anticoagulation modality to Heparin/Lovenox and bridge to Coumadin, since it can be monitored adequately. I will perform further hypercoagulable testing on outpatient basis since it may affect his children, regardless patient will need indefinite anticoagulation. Plan Start Lovenox 1mg/kg sc q12h and bridge to coumadin Discontinue Eliquis Monitor for bleeding Will perform further hypercoag workup on outpatient basis Will continue to follow Thank you for allowing me to partake in your patients care. Sincerely, Evan Marcial (covering for Dr. Brody)
[2018-04-19] MEDS ORDERED: Oxycodone/Acetaminophen 5/325 mg Tab PO STA (22:07)
[2018-04-20] MEDS ORDERED: Oxycodone/Acetaminophen 5/325 mg Tab PO ONE (05:00)
[2018-04-20 07:37] VITALS: RESP 20
[2018-04-20 10:43] LABS: BASO # 0.03 K/mm3 (0.0-2.0); BASO % 0.6 % (0.0-3.0); EOS # 0.2 (0.0-0.7); EOS % 4.3 % (1.5-5.0); GRAN # 2.41 (1.4-6.5); GRAN % 45.4 % (50.0-68.0); HEMOGLOBIN 12.7 g/dL (14.0-18.0); LYMPH # 2.3 (1.2-3.4); LYMPH % 42.5 % (22.0-35.0); MEAN CELL VOLUME 71.2 fl (80.0-105.0); MEAN CORPUSCULAR HEMOGLOBIN 23.6 pg (25.0-35.0); MEAN CORPUSCULAR HGB CONC 33.2 g/dl (31.0-37.0); MEAN PLATELET VOLUME 10.2 fl (7.0-11.0); MONO # 0.4 (0.1-0.6); MONO % 7.2 % (1.0-6.0); RBC 5.38 10^6/uL (3.5-6.1); RED CELL DISTRIBUTION WIDTH 15.1 % (11.5-14.5); WHITE BLOOD COUNT 5.3 10^3/ul (4.5-11.0)
[2018-04-20 10:56] LABS: ALB/GLOB RATIO 1.2 (1.1-1.8); ALBUMIN 4.4 g/dL (3.0-4.8); ALT/SGPT 25 U/L (7-56); AST/SGOT 27 U/L (17-59); BLOOD UREA NITROGEN 7 mg/dL (7-21); CALCIUM 9.2 mg/dL (8.4-10.5); GFR NON-AFRICAN AMERICAN > 60
[2018-04-20] MEDS: Lactobacillus Acidophilus 500 MU Cap PO SCH ×2 (11:01→19:19)
[2018-04-20] MEDS: Oxycodone/Acetaminophen 5/325 mg Tab PO PRN ×3 (11:02→21:36)
[2018-04-20] MEDS: Enoxaparin 100 mg Syringe SC SCH ×2 (11:03→21:30)
[2018-04-20] MEDS: Lidocaine 5% Patch TD SCH (11:05)
[2018-04-20] MEDS: Cholecalciferol 1,000 INTLU TAB PO SCH (11:07)
--- NOTE | 2018-04-20 12:29 | CP.PCM.PN ---
<Venessa Espinosa - Last Filed: 04/20/18 14:36> Subjective - Date & Time of Evaluation Date of Evaluation: 04/20/18 Time of Evaluation: 10:26 - Subjective Subjective: Venessa Espinosa DO, PGY-2: Progress Note for Dr. Cici Leiva Patient was seen and examined at bedside. He denied any chest pain, nausea, vomiting, diarrhea, or any change to his lower extremity pain. He is aware that we are bridging him to Coumadin. Night resident reported patient requested for Ambien and medication for breakthrough pain. Objective - Vital Signs/Intake and Output Vital Signs (last 24 hours): Temp Pulse Resp BP Pulse Ox 98.2 F 73 20 125/90 100 04/20/18 06:00 04/20/18 06:00 04/20/18 06:00 04/20/18 06:00 04/20/18 06:00 Intake and Output: 04/20/18 04/20/18 06:59 18:59 Intake Total 240 Balance 240 - Medications Medications: Current Medications Atorvastatin Calcium (Lipitor) 10 mg PO HS [facility] Last Admin: 04/19/18 21:35 Dose: 10 mg Cholecalciferol (Vitamin D) 2,000 intlu PO DAILY [facility] Last Admin: 04/20/18 11:07 Dose: 2,000 intlu Enoxaparin Sodium (Lovenox) 90 mg SC Q12H [facility] PRN Reason: Protocol Last Admin: 04/20/18 11:03 Dose: 90 mg Guaifenesin/Dextromethorphan (Robitussin Dm) 10 ml PO Q4H PRN PRN Reason: Cough Last Admin: 04/18/18 07:09 Dose: 10 ml Lactobacillus Acidophilus (Bacid Acidophilus) 1 cap PO BID [facility] Last Admin: 04/20/18 11:01 Dose: 1 cap Lidocaine (Lidoderm) 1 ea TD DAILY [facility] Last Admin: 04/20/18 11:05 Dose: 1 ea Oxycodone/Acetaminophen (Percocet 5/325 Mg Tab) 1 tab PO Q6H PRN PRN Reason: Pain, severe (8-10) Stop: 04/23/18 10:32 Last Admin: 04/20/18 11:02 Dose: 1 tab Tamsulosin HCl (Flomax) 0.4 mg PO DAILY [facility] Last Admin: 04/20/18 11:02 Dose: 0.4 mg Warfarin Sodium (Coumadin) 5 mg PO 1800 [facility] PRN Reason: Protocol Zolpidem Tartrate (Ambien) 10 mg PO HS PRN; Protocol PRN Reason: Insomnia - Labs Labs: 04/20/18 10:36 04/20/18 10:36 PT 14.3 SECONDS (9.4-12.5) H 04/15/18 00:00 INR 1.25 04/15/18 00:00 APTT 46.9 Seconds (25.1-36.5) H 04/15/18 00:00 - Constitutional Appears: Well, Non-toxic - Head Exam Head Exam: ATRAUMATIC, NORMOCEPHALIC - Eye Exam Eye Exam: EOMI, Normal appearance - ENT Exam ENT Exam: Mucous Membranes Moist, Normal Oropharynx - Neck Exam Neck Exam: Normal Inspection - Respiratory Exam Respiratory Exam: Clear to Ausculation Bilateral, NORMAL BREATHING PATTERN. absent: Accessory Muscle Use - Cardiovascular Exam Cardiovascular Exam: RRR, +S1, +S2 - GI/Abdominal Exam GI & Abdominal Exam: Soft, Normal Bowel Sounds - Extremities Exam Extremities Exam: Pedal Edema (1/4, left greater than right). absent: Calf Tenderness - Neurological Exam Neurological Exam: Abnormal Gait, Alert, Awake, Oriented x3 - Psychiatric Exam Psychiatric exam: Normal Affect, Normal Mood - Skin Skin Exam: Dry, Intact, Normal Color, Warm Assessment and Plan - Assessment and Plan (Free Text) Assessment: 62 year old of male with a past medical history of DVT in the left lower extremity-currently on Eliquis, IVC filter, Benign Prostatic Hyperplasia, Anemia , and C. difficile colitis who presented to the ED s/p mechanical fall. Head CT was negative for acute hemorrhage. CT of cervical and lumbar spine were negative for acute fracture. Neurology was consulted who recommended continuing physical therapy. During the course of the patient's hospital stay, he complained of worsening left lower extremity pain and underwent a doppler venous US of the bilateral lower extremities that showed an occlusive left- femoral vein thrombus as well as a partially recannulized thrombus in the left popliteal. Interventional radiology was consulted, Dr. Magdaleno Oneal, who recommended a Hematology consult given it appears the patient has developed a new blood clot based on the US findings while on the oral anticoagulant, Eliquis. Hematology consulted and recommends bridging the patient to Warfarin and outpatient follow up for hypercoagulable-work up. Lower Extremity DVT on a patient with a PMH of LLE thrombus - IR recommends hematology consult - Lower In Supervisor recommends starting Lovenox 1 mg/kg q12h, stopping Eliquis and starting Warfarin. - Venous doppler lower extremity (04/16): occlusive thrombus in the left femoral vein. Partially recannulized thrombus in the left popliteal vein. - Patient also needs to f/u with manager policy outpatient for workup for his hypercoaguable state - Bruising of lower extremities bilaterally; patient has been taking Eliquis 5mg PO BID ([facility]) - c/w Eliquis 5 mg PO BID (home med) - History of L-hip replacement (2015) possibly related to the cause of thrombus - Physical Therapy - PRN analgesic Mechanical Fall vs near-syncope - Based on history, likely mechanical due to rolling walker malfunction; d/w case consultant (see below) - Neurology recs appreciated, patient is cleared from a neurology standpoint; origin of fall is less likely to be due to near syncope - Carotid US (04/15): 20-39% stenosis of bilateral ICA. - ECHO (04/15): 53% EF. Moderate calcified aortic valve. Aortic sclerosis vs. mild . - Hip/Pelvis XR: no fractures. - Orthostatics vitals within normal limits - CT Head: negative for intracranial hemorrhage or bleed - C-spine CT: no fracture; post-surgical changes - Lumbar spine CT: no fracture; post-surgical changes - CXR: no infiltrate or effusion Chronic, Mild Right Sided Abdominal Pain - R-sided abdominal tenderness, no signs of rebound tenderness or acute abdomen - f/u with GI outpatient for age appropriate screening colonoscopy - Abdominal US (04/16): unremarkable. Episode of Sinus bradycardia - resolved - EKG (04/15): HR 58 with possible incomplete L-BBB - HR has been in the 70s - troponins negative x3 Hypokalemia likely 2/2 diarrhea - resolved - K is 3.9 (04/17) - K was 2.9 in ED; given K-Dur 40 mEq stat and one time dose - No EKG changes HLD - c/w Lipitor BPH - c/w Flomax home med - No indications of urinary obstruction Manager Sports: Attempted to order new rolling walker for patient, but based on documentation, patient was not eligible. Patient is instructed to call company for new rolling walker. Dispo: Patient scheduled for clinic appointment for May 02 at 2 pm. Continue to manage patient on the floor. Case was reviewed and discussed with Attending Physician, Dr. Leiva. <Cici Leiva R - Last Filed: 04/21/18 11:47> Objective - Vital Signs/Intake and Output Vital Signs (last 24 hours): Temp Pulse Resp BP Pulse Ox 98.3 F 78 20 142/82 100 04/21/18 06:00 04/21/18 06:00 04/21/18 06:00 04/21/18 06:00 04/21/18 06:00 Intake and Output: 04/21/18 04/21/18 06:59 18:59 Intake Total 780 Output Total 900 Balance -120 - Medications Medications: Current Medications Atorvastatin Calcium (Lipitor) 10 mg PO HS [facility] Last Admin: 04/20/18 21:29 Dose: 10 mg Cholecalciferol (Vitamin D) 2,000 intlu PO DAILY [facility] Last Admin: 04/21/18 10:16 Dose: 2,000 intlu Enoxaparin Sodium (Lovenox) 90 mg SC Q12H [facility] PRN Reason: Protocol Last Admin: 04/21/18 10:16 Dose: 90 mg Guaifenesin/Dextromethorphan (Robitussin Dm) 10 ml PO Q4H PRN PRN Reason: Cough Last Admin: 04/21/18 06:14 Dose: 10 ml Lactobacillus Acidophilus (Bacid Acidophilus) 1 cap PO BID [facility] Last Admin: 04/21/18 10:15 Dose: 1 cap Lidocaine (Lidoderm) 1 ea TD DAILY [facility] Last Admin: 04/21/18 10:16 Dose: 1 ea Oxycodone/Acetaminophen (Percocet 5/325 Mg Tab) 1 tab PO Q6H PRN PRN Reason: Pain, severe (8-10) Stop: 04/23/18 10:32 Last Admin: 04/21/18 10:16 Dose: 1 tab Tamsulosin HCl (Flomax) 0.4 mg PO DAILY [facility] Last Admin: 04/21/18 10:15 Dose: 0.4 mg Warfarin Sodium (Coumadin) 5 mg PO 1800 [facility] PRN Reason: Protocol Last Admin: 04/20/18 19:19 Dose: 5 mg Zolpidem Tartrate (Ambien) 10 mg PO HS PRN; Protocol PRN Reason: Insomnia Last Admin: 04/20/18 22:52 Dose: 10 mg - Labs Labs: 04/21/18 06:00 04/21/18 06:00 PT 12.9 SECONDS (9.4-12.5) H 04/21/18 06:00 INR 1.12 04/21/18 06:00 APTT 46.9 Seconds (25.1-36.5) H 04/15/18 00:00 Attending/Attestation - Attestation I have personally seen and examined this patient.: Yes I have fully participated in the care of the patient.: Yes I have reviewed all pertinent clinical information, including history, physical exam and plan: Yes Notes (Text): Patient seen and examined by me at 11:15AM with resident 04/20/18. Case including HPI, physical exam, and assessment and plan discussed with resident. Agree with above with following additions/corrections. Patient is 62-year-old male with past medical history significant for DVT of left lower extremity, left hip arthroplasty, C-spine fusion surgery, BPH, and iron deficiency anemia that presented to the emergency room with mechanical fall , dizziness, neck and back pain. Patient states he is feeling ok. Still complains of bilateral lower extremity pain. Pain medications are helping. States he is trying to keep legs elevated. He denies any dizziness or lightheadedness. No headaches or change in vision. No chest pain or shortness of breath. No fevers or chills. No nausea or vomiting. No dysuria. No diarrhea. Has chronic neck, back and right abdominal pain. Physical exam: General: Awake and alert, lying in bed in no acute distress HEENT: Normocephalic, atraumatic. Extraocular muscles intact. No scleral icterus. Oropharynx is pink and moist. No pharyngeal erythema or exudate appreciated. Neck is supple. Cardiovascular: Normal rhythm. Normal S1, S2. No murmurs, rubs, or gallops appreciated Pulmonary: Normal respiratory effort. No rhonchi, rales or wheezing appreciated. Gastrointestinal: Soft, postive right sided abdominal tenderness with deep palpation. Positive bowel sounds all 4 quadrants, no guarding. Musculoskeletal: Moves all extremities, positive bilateral extremity edema and tenderness. Central nervous system: CN2-12 grossly intact. AAO x 3 Dermatologic: Skin warm and dry Assessment and plan: Patient is 62-year-old male with past medical history significant for DVT of left lower extremity, left hip arthroplasty, C-spine fusion surgery, BPH, and iron deficiency anemia that presented to the emergency room with mechanical fall, dizziness, neck and back pain. 1. Bilateral lower extremity edema. Chronic. History of DVT in left lower extremity. Lower extremity venous dopplers per radiologist shows occlusive thrombus in the left femoral vein; partially recannulized comes in the left popliteal vein. Continue Eliquis. Discussed case with IR Dr. Oneal who feels patient does not need thrombectomy. Patient Lower In Supervisor consulted, recommendations appreciated. Elquis stopped and patient started on therapeutic lovenox, Patient to be bridged to coumadin. 2. Mechanical fall. Possible near syncope. May be secondary to pain medications and ambien. Patient counseled on reducing these medicaton use. Continue Lipitor. Eliquis stopped. Patient started on therapeutic lovenox to be bridged to coumadin. Carotid dopplers per radiologist show bilateral 20-39% proximal ICA stenoses. 2D echo per business analytics analyst shows left ventricle is normal size, normal left ventricular wall thickness, left ventricular function is normal, left ventricular ejection fraction is within normal range (please see official read for full details). Head CT per radiologist shows no bleed. Cervical spine CT per radiologist shows postsurgical changes, no acute fracture. Lumbar spine CT per radiologist showed postsurgical changes in the lower lumbar spine, no evidence of acute fracture. Left hip/pelvis x-ray per radiologist shows left hip prosthesis, no acute findings. Continue PT. Neurology following, recommendations appreciated. Orthostatic vitals within normal limits. 3. Hypokalemia. Resolved. Likely secondary to diarrhea. Continue to monitor. 4. Diarrhea. Resolved. C. difficile toxin negative 5. BPH. Continue Flomax 6. Hyperlipidemia. Continue Lipitor. 7. Chronic neck and back pain. Continue PT. Lidoderm patch 8. Vitamin D deficiency. Continue oral vitamin D supplement. 9. Right sided chronic abdominal pain. Per patient, he was suppose to get colonoscopy as outpatient but has not followed up. Abdominal ultrasound per radiology shows unremarkable abdominal sonogram. Will need to follow up outpatient with GI. Case was discussed in detail with patient regarding current diagnosis and treatment plan.
[2018-04-20] MEDS: guaiFENesin DM 200 mg-20 mg/10 ml UD PO PRN (17:45)
[2018-04-21] MEDS: Oxycodone/Acetaminophen 5/325 mg Tab PO PRN ×4 (04:08→21:08)
[2018-04-21] MEDS: guaiFENesin DM 200 mg-20 mg/10 ml UD PO PRN ×2 (06:14→17:00)
[2018-04-21 07:13] LABS: ALB/GLOB RATIO 1.2 (1.1-1.8); ALBUMIN 4.4 g/dL (3.0-4.8); ALT/SGPT 29 U/L (7-56); AST/SGOT 31 U/L (17-59); BLOOD UREA NITROGEN 8 mg/dL (7-21); CALCIUM 9.3 mg/dL (8.4-10.5); GFR NON-AFRICAN AMERICAN > 60
[2018-04-21 07:15] LABS: BASO # 0.02 K/mm3 (0.0-2.0); BASO % 0.5 % (0.0-3.0); EOS # 0.2 (0.0-0.7); EOS % 5.5 % (1.5-5.0); GRAN # 1.93 (1.4-6.5); GRAN % 44.6 % (50.0-68.0); HEMOGLOBIN 12.6 g/dL (14.0-18.0); LYMPH # 1.9 (1.2-3.4); LYMPH % 44.3 % (22.0-35.0); MEAN CELL VOLUME 71.8 fl (80.0-105.0); MEAN CORPUSCULAR HEMOGLOBIN 23.6 pg (25.0-35.0); MEAN CORPUSCULAR HGB CONC 32.8 g/dl (31.0-37.0); MEAN PLATELET VOLUME 10.9 fl (7.0-11.0); MONO # 0.2 (0.1-0.6); MONO % 5.1 % (1.0-6.0); RBC 5.35 10^6/uL (3.5-6.1); RED CELL DISTRIBUTION WIDTH 15.2 % (11.5-14.5); WHITE BLOOD COUNT 4.3 10^3/ul (4.5-11.0)
[2018-04-21 07:28] LABS: INR 1.12; PROTHROMBIN TIME 12.9 SECONDS (9.4-12.5)
[2018-04-21] MEDS: Lactobacillus Acidophilus 500 MU Cap PO SCH ×2 (10:15→17:00)
[2018-04-21] MEDS: Enoxaparin 100 mg Syringe SC SCH ×2 (10:16→22:32)
[2018-04-21] MEDS: Cholecalciferol 1,000 INTLU TAB PO SCH (10:16)
[2018-04-21] MEDS: Lidocaine 5% Patch TD SCH (10:16)
--- NOTE | 2018-04-21 13:32 | CP.PCM.PN ---
<Ada Greene - Last Filed: 04/21/18 13:33> Subjective - Date & Time of Evaluation Date of Evaluation: 04/21/18 Time of Evaluation: 09:00 - Subjective Subjective: PGY-3 Progress Note for Hospitalist service Patient was seen and examined at bedside, no acute distress. He denied any chest pain, nausea, vomiting, diarrhea, or any change to his lower extremity pain. Tolerating diet , ambulating to restroom Objective - Vital Signs/Intake and Output Vital Signs (last 24 hours): Temp Pulse Resp BP Pulse Ox 98.3 F 78 20 142/82 100 04/21/18 06:00 04/21/18 06:00 04/21/18 06:00 04/21/18 06:00 04/21/18 06:00 Intake and Output: 04/21/18 04/21/18 06:59 18:59 Intake Total 780 Output Total 900 Balance -120 - Medications Medications: Current Medications Atorvastatin Calcium (Lipitor) 10 mg PO HS [facility] Last Admin: 04/20/18 21:29 Dose: 10 mg Cholecalciferol (Vitamin D) 2,000 intlu PO DAILY [facility] Last Admin: 04/21/18 10:16 Dose: 2,000 intlu Enoxaparin Sodium (Lovenox) 90 mg SC Q12H [facility] PRN Reason: Protocol Last Admin: 04/21/18 10:16 Dose: 90 mg Guaifenesin/Dextromethorphan (Robitussin Dm) 10 ml PO Q4H PRN PRN Reason: Cough Last Admin: 04/21/18 06:14 Dose: 10 ml Lactobacillus Acidophilus (Bacid Acidophilus) 1 cap PO BID [facility] Last Admin: 04/21/18 10:15 Dose: 1 cap Lidocaine (Lidoderm) 1 ea TD DAILY [facility] Last Admin: 04/21/18 10:16 Dose: 1 ea Oxycodone/Acetaminophen (Percocet 5/325 Mg Tab) 1 tab PO Q6H PRN PRN Reason: Pain, severe (8-10) Stop: 04/23/18 10:32 Last Admin: 04/21/18 10:16 Dose: 1 tab Tamsulosin HCl (Flomax) 0.4 mg PO DAILY [facility] Last Admin: 04/21/18 10:15 Dose: 0.4 mg Warfarin Sodium (Coumadin) 5 mg PO 1800 [facility] PRN Reason: Protocol Last Admin: 04/20/18 19:19 Dose: 5 mg Zolpidem Tartrate (Ambien) 10 mg PO HS PRN; Protocol PRN Reason: Insomnia Last Admin: 04/20/18 22:52 Dose: 10 mg - Labs Labs: 04/21/18 06:00 04/21/18 06:00 PT 12.9 SECONDS (9.4-12.5) H 04/21/18 06:00 INR 1.12 04/21/18 06:00 APTT 46.9 Seconds (25.1-36.5) H 04/15/18 00:00 - Constitutional Appears: Well, No Acute Distress - Head Exam Head Exam: ATRAUMATIC, NORMOCEPHALIC - Eye Exam Eye Exam: EOMI, Normal appearance - ENT Exam ENT Exam: Mucous Membranes Moist - Respiratory Exam Respiratory Exam: Clear to Ausculation Bilateral, NORMAL BREATHING PATTERN. absent: Decreased Breath Sounds, Rales, Rhonchi, Wheezes, Respiratory Distress - Cardiovascular Exam Cardiovascular Exam: REGULAR RHYTHM, +S1, +S2. absent: Bradycardia, Tachycardia , Murmur - GI/Abdominal Exam GI & Abdominal Exam: Soft, Normal Bowel Sounds. absent: Distended, Firm, Guarding, Tenderness - Extremities Exam Additional comments: lower extremity swelling improved - Neurological Exam Neurological Exam: Alert, Awake, Oriented x3 - Skin Skin Exam: Dry, Intact, Normal Color, Warm Assessment and Plan - Assessment and Plan (Free Text) Assessment: 62 yo male with a past medical history of DVT in the left lower extremity, IVC filter, Benign Prostatic Hyperplasia, Anemia, and C. difficile colitis who presented to the ED s/p mechanical fall. Patient was found to have worsening left lower extremity pain and underwent a doppler venous US of the bilateral lower extremities that showed an occlusive left-femoral vein thrombus as well as a partially recannulized thrombus in the left popliteal. Patient is currently on lovenox, being bridged to warfarin. Plan: Lower Extremity DVT on a patient with a PMH of LLE thrombus - Venous doppler lower extremity (04/16) showed occlusive thrombus in the left femoral vein. Partially recannulized thrombus in the left popliteal vein. - IR consulted recommended hematology consult given that it appears a new blood clot developed while on the oral anticoagulant, Eliquis - Animal Attendant recommends starting Lovenox 1 mg/kg q12h to bridge to warfarin and stopping home Eliquis - Patient advised to follow up with rose grading supervisor outpatient for workup for his hypercoaguable state - Physical Therapy - PRN analgesic Mechanical Fall - Based on history, mechanical due to rolling walker malfunction - Neurology consulted, patient is cleared from a neurology standpoint; origin of fall is less likely to be due to near syncope - Carotid US (04/15): 20-39% stenosis of bilateral ICA. - ECHO (04/15): 53% EF. Moderate calcified aortic valve. Aortic sclerosis vs. mild . - Hip/Pelvis XRay: no fractures. - Orthostatics vitals within normal limits - CT Head: negative for intracranial hemorrhage or bleed - Cervicalspine CT: no fracture; post-surgical changes - Lumbar spine CT: no fracture; post-surgical changes - CXR: no infiltrate or effusion - continue PT - [place] Converter Operator instructed patient to call company for new rolling walker. Chronic, Mild Right Sided Abdominal Pain - R-sided abdominal tenderness, no signs of rebound tenderness or acute abdomen - Abdominal US (04/16): unremarkable - patient is advised ot follow up with GI outpatient Hypokalemia likely due to diarrhea - resolved - K is 4.7 today) - continue to monitor Hyperlipidemia - continue Lipitor BPH - continue Flomax home med Dispo: Patient scheduled for clinic appointment for May 02 at 2 pm. Case was reviewed and discussed with Attending Physician, Dr. Leiva. <Cici Leiva R - Last Filed: 04/22/18 11:10> Objective - Vital Signs/Intake and Output Vital Signs (last 24 hours): Temp Pulse Resp BP Pulse Ox 98 F 65 20 140/95 H 100 04/22/18 07:59 04/22/18 07:59 04/22/18 07:59 04/22/18 07:59 04/22/18 07:59 - Medications Medications: Current Medications Atorvastatin Calcium (Lipitor) 10 mg PO HS [facility] Last Admin: 04/21/18 21:07 Dose: 10 mg Cholecalciferol (Vitamin D) 2,000 intlu PO DAILY [facility] Last Admin: 04/22/18 09:27 Dose: 2,000 intlu Enoxaparin Sodium (Lovenox) 90 mg SC Q12H [facility] PRN Reason: Protocol Last Admin: 04/21/18 22:32 Dose: 90 mg Guaifenesin/Dextromethorphan (Robitussin Dm) 10 ml PO Q4H PRN PRN Reason: Cough Last Admin: 04/22/18 03:27 Dose: 10 ml Lactobacillus Acidophilus (Bacid Acidophilus) 1 cap PO BID [facility] Last Admin: 04/22/18 09:27 Dose: 1 cap Lidocaine (Lidoderm) 1 ea TD DAILY [facility] Last Admin: 04/22/18 09:28 Dose: 1 ea Oxycodone/Acetaminophen (Percocet 5/325 Mg Tab) 1 tab PO Q6H PRN PRN Reason: Pain, severe (8-10) Stop: 04/23/18 10:32 Last Admin: 04/22/18 09:27 Dose: 1 tab Tamsulosin HCl (Flomax) 0.4 mg PO DAILY [facility] Last Admin: 04/22/18 09:27 Dose: 0.4 mg Warfarin Sodium (Coumadin) 10 mg PO 1800 [facility] PRN Reason: Protocol Zolpidem Tartrate (Ambien) 10 mg PO HS PRN; Protocol PRN Reason: Insomnia Last Admin: 04/21/18 21:08 Dose: 10 mg - Labs Labs: 04/22/18 06:30 04/22/18 06:30 PT 13.2 SECONDS (9.4-12.5) H 04/22/18 06:30 INR 1.14 04/22/18 06:30 APTT 46.9 Seconds (25.1-36.5) H 04/15/18 00:00 Attending/Attestation - Attestation I have personally seen and examined this patient.: Yes I have fully participated in the care of the patient.: Yes I have reviewed all pertinent clinical information, including history, physical exam and plan: Yes Notes (Text): Patient seen and examined by me at 10:30AM with resident 04/21/18. Case including HPI, physical exam, and assessment and plan discussed with resident. Agree with above with following additions/corrections. Patient is 62-year-old male with past medical history significant for DVT of left lower extremity, left hip arthroplasty, C-spine fusion surgery, BPH, and iron deficiency anemia that presented to the emergency room with mechanical fall , dizziness, neck and back pain. Patient states he is feeling better. Still with lower extremity pain but pain medications are helping. Legs feel less swollen. Patient denies any headaches or dizziness. No lightheadedness. No chest pain or shortness of breath. No fevers or chills. No nausea or vomiting. No dysuria. No diarrhea. Has chronic neck, back and right abdominal pain. Physical exam: General: Awake and alert, lying in bed in no acute distress HEENT: Normocephalic, atraumatic. Extraocular muscles intact. No scleral icterus. Oropharynx is pink and moist. No pharyngeal erythema or exudate appreciated. Neck is supple. Cardiovascular: Normal rhythm. Normal S1, S2. No murmurs, rubs, or gallops appreciated Pulmonary: Normal respiratory effort. No rhonchi, rales or wheezing appreciated. Gastrointestinal: Soft, postive right sided abdominal tenderness with deep palpation. Positive bowel sounds all 4 quadrants, no guarding. Musculoskeletal: Moves all extremities, positive bilateral extremity edema and tenderness. Central nervous system: CN2-12 grossly intact. AAO x 3 Dermatologic: Skin warm and dry Assessment and plan: Patient is 62-year-old male with past medical history significant for DVT of left lower extremity, left hip arthroplasty, C-spine fusion surgery, BPH, and iron deficiency anemia that presented to the emergency room with mechanical fall, dizziness, neck and back pain. 1. Bilateral lower extremity edema. History of DVT in left lower extremity. Lower extremity venous dopplers per radiologist shows occlusive thrombus in the left femoral vein; partially recannulized comes in the left popliteal vein. Continue bridging to coumadin. Discussed case with IR Dr. Oneal who feels patient does not need thrombectomy. Animal Attendant following, recommendations appreciated. Elquis stopped. 2. Mechanical fall. Possible near syncope. May be secondary to pain medications and ambien. Patient counseled on reducing these medicaton use. Continue Lipitor. Eliquis stopped. Continue to bridge to coumadin. Carotid dopplers per radiologist show bilateral 20-39% proximal ICA stenoses. 2D echo per service parts driver shows left ventricle is normal size, normal left ventricular wall thickness, left ventricular function is normal, left ventricular ejection fraction is within normal range (please see official read for full details). Head CT per radiologist shows no bleed. Cervical spine CT per radiologist shows postsurgical changes, no acute fracture. Lumbar spine CT per radiologist showed postsurgical changes in the lower lumbar spine, no evidence of acute fracture. Left hip/pelvis x-ray per radiologist shows left hip prosthesis, no acute findings. Continue PT. Neurology following, recommendations appreciated. Orthostatic vitals within normal limits. 3. Hypokalemia. Resolved. Likely secondary to diarrhea. Continue to monitor. 4. Diarrhea. Resolved. C. difficile toxin negative 5. BPH. Continue Flomax 6. Hyperlipidemia. Continue Lipitor. 7. Chronic neck and back pain. Continue PT. Lidoderm patch 8. Vitamin D deficiency. Continue oral vitamin D supplement. 9. Right sided chronic abdominal pain. Per patient, he was suppose to get colonoscopy as outpatient but has not followed up. Abdominal ultrasound per radiology shows unremarkable abdominal sonogram. Will need to follow up outpatient with GI. Case was discussed in detail with patient regarding current diagnosis and treatment plan.
[2018-04-22] MEDS: Oxycodone/Acetaminophen 5/325 mg Tab PO PRN ×4 (03:25→22:10)
[2018-04-22] MEDS: guaiFENesin DM 200 mg-20 mg/10 ml UD PO PRN ×3 (03:27→22:14)
[2018-04-22 07:20] LABS: INR 1.14; PROTHROMBIN TIME 13.2 SECONDS (9.4-12.5)
[2018-04-22 07:23] LABS: BASO # 0.03 K/mm3 (0.0-2.0); BASO % 0.6 % (0.0-3.0); EOS # 0.3 (0.0-0.7); EOS % 6.8 % (1.5-5.0); GRAN # 1.77 (1.4-6.5); GRAN % 37.8 % (50.0-68.0); HEMOGLOBIN 11.5 g/dL (14.0-18.0); LYMPH # 2.3 (1.2-3.4); MEAN CELL VOLUME 71.7 fl (80.0-105.0); MEAN CORPUSCULAR HEMOGLOBIN 22.9 pg (25.0-35.0); MEAN CORPUSCULAR HGB CONC 31.9 g/dl (31.0-37.0); MEAN PLATELET VOLUME 10.8 fl (7.0-11.0); MONO # 0.3 (0.1-0.6); MONO % 5.8 % (1.0-6.0); RBC 5.02 10^6/uL (3.5-6.1); RED CELL DISTRIBUTION WIDTH 15.2 % (11.5-14.5); WHITE BLOOD COUNT 4.7 10^3/ul (4.5-11.0)
[2018-04-22 07:48] LABS: ALB/GLOB RATIO 1.2 (1.1-1.8); ALBUMIN 3.7 g/dL (3.0-4.8); ALT/SGPT 28 U/L (7-56); AST/SGOT 30 U/L (17-59); BLOOD UREA NITROGEN 9 mg/dL (7-21); CALCIUM 8.9 mg/dL (8.4-10.5); GFR NON-AFRICAN AMERICAN > 60
[2018-04-22] MEDS: Lactobacillus Acidophilus 500 MU Cap PO SCH ×2 (09:27→17:25)
[2018-04-22] MEDS: Cholecalciferol 1,000 INTLU TAB PO SCH (09:27)
[2018-04-22] MEDS: Lidocaine 5% Patch TD SCH (09:28)
[2018-04-22] MEDS: Enoxaparin 100 mg Syringe SC SCH ×2 (11:03→22:09)
--- NOTE | 2018-04-22 15:46 | CP.PCM.PN ---
<Abran Batres - Last Filed: 04/22/18 16:07> Subjective - Date & Time of Evaluation Date of Evaluation: 04/22/18 Time of Evaluation: 07:00 - Subjective Subjective: Abran Batres PGY1 Medicine Progress Note for Dr. Avery Patient was seen and examined at bedside this morning. Patient denied lightheadedness, dizziness, chest pain, shortness of breath, nausea, vomiting, diarrhea, numbness and tingling of extremities. Patient still has mild tenderness at the bilateral lower extremities. No overnight changes. Vital signs stable. Patient was explained the importance of his changes in medications , discontinuing Eliquis and starting on heparin/coumadin bridge therapy. A full 12 point ROS was conducted and unremarkable except as stated above. Objective - Vital Signs/Intake and Output Vital Signs (last 24 hours): Temp Pulse Resp BP Pulse Ox 98.3 F 63 20 113/76 98 04/22/18 14:00 04/22/18 14:00 04/22/18 14:00 04/22/18 14:00 04/22/18 14:00 - Medications Medications: Current Medications Atorvastatin Calcium (Lipitor) 10 mg PO HS ON LICENSE OF [facility] Last Admin: 04/21/18 21:07 Dose: 10 mg Cholecalciferol (Vitamin D) 2,000 intlu PO DAILY FERNANDO Last Admin: 04/22/18 09:27 Dose: 2,000 intlu Enoxaparin Sodium (Lovenox) 90 mg SC Q12H FERNANDO PRN Reason: Protocol Last Admin: 04/22/18 11:03 Dose: 90 mg Guaifenesin/Dextromethorphan (Robitussin Dm) 10 ml PO Q4H PRN PRN Reason: Cough Last Admin: 04/22/18 03:27 Dose: 10 ml Lactobacillus Acidophilus (Bacid Acidophilus) 1 cap PO BID FERNANDO Last Admin: 04/22/18 09:27 Dose: 1 cap Lidocaine (Lidoderm) 1 ea TD DAILY FERNANDO Last Admin: 04/22/18 09:28 Dose: 1 ea Oxycodone/Acetaminophen (Percocet 5/325 Mg Tab) 1 tab PO Q6H PRN PRN Reason: Pain, severe (8-10) Stop: 04/23/18 10:32 Last Admin: 04/22/18 09:27 Dose: 1 tab Tamsulosin HCl (Flomax) 0.4 mg PO DAILY FERNANDO Last Admin: 04/22/18 09:27 Dose: 0.4 mg Warfarin Sodium (Coumadin) 10 mg PO 1800 FERNANDO PRN Reason: Protocol Zolpidem Tartrate (Ambien) 10 mg PO HS PRN; Protocol PRN Reason: Insomnia Last Admin: 04/21/18 21:08 Dose: 10 mg - Labs Labs: 04/22/18 06:30 04/22/18 06:30 PT 13.2 SECONDS (9.4-12.5) H 04/22/18 06:30 INR 1.14 04/22/18 06:30 APTT 46.9 Seconds (25.1-36.5) H 04/15/18 00:00 - Constitutional Appears: Well, No Acute Distress - Head Exam Head Exam: ATRAUMATIC, NORMAL INSPECTION, NORMOCEPHALIC - Eye Exam Eye Exam: EOMI, Normal appearance, PERRL Pupil Exam: NORMAL ACCOMODATION, PERRL - ENT Exam ENT Exam: Mucous Membranes Moist, Normal Exam - Neck Exam Neck Exam: Full ROM, Normal Inspection. absent: Lymphadenopathy - Respiratory Exam Respiratory Exam: Clear to Ausculation Bilateral, NORMAL BREATHING PATTERN. absent: Rales, Rhonchi, Wheezes - Cardiovascular Exam Cardiovascular Exam: REGULAR RHYTHM, +S1, +S2. absent: Murmur - GI/Abdominal Exam GI & Abdominal Exam: Soft, Tenderness (Mild tenderness to palpation of abdomen.) , Normal Bowel Sounds - Extremities Exam Extremities Exam: Full ROM, Normal Capillary Refill, Tenderness (bilateral tenderness of lower extremity. ). absent: Calf Tenderness, Joint Swelling, Pedal Edema - Back Exam Back Exam: NORMAL INSPECTION - Neurological Exam Neurological Exam: Alert, Awake, Normal Gait, Oriented x3 Neuro motor strength exam: Left Upper Extremity: 5, Right Upper Extremity: 5, Left Lower Extremity: 5, Right Lower Extremity: 5 - Psychiatric Exam Psychiatric exam: Normal Affect, Normal Mood - Skin Skin Exam: Dry, Intact, Normal Color, Warm Assessment and Plan - Assessment and Plan (Free Text) Assessment: Patient is a 62 y/o M with PMHx of DVT in the left lower extremity, Left-hip replacement (2016), IVC filter, BPH, Anemia, and C. difficile colitis who presented to the ED s/p mechanical fall. Patient was found to have worsening left lower extremity pain and underwent a doppler venous US of the bilateral lower extremities that showed an occlusive left-femoral vein thrombus as well as a partially recannulized thrombus in the left popliteal. Patient is currently on lovenox, being bridged to warfarin. Patient is being monitored on the floor. Plan: Left Lower Extremity DVT (PMHx of LLE thrombus) - c/w heparin bridge therapy (1 mg/kg q12) - Adjusted dose of warfarin to 10 mg PO - f/u INR in the morning (goal is 2-3) - Venous doppler lower extremity (04/16) showed occlusive thrombus in the left femoral vein. Partially recannulized thrombus in the left popliteal vein. - IR consulted recommended hematology consult given that it appears a new blood clot developed while on the oral anticoagulant, Eliquis - Light Rail Signal Technician recommends starting Lovenox 1 mg/kg q12h to bridge to warfarin and stopping home Eliquis - Patient advised to follow up with art instructor outpatient for workup for his hypercoaguable state - Physical Therapy - PRN analgesic Mechanical Fall - Based on history, mechanical due to rolling walker malfunction - Neurology consulted, patient is cleared from a neurology standpoint; origin of fall is less likely to be due to near syncope - Carotid US (04/15): 20-39% stenosis of bilateral ICA. - ECHO (04/15): 53% EF. Moderate calcified aortic valve. Aortic sclerosis vs. mild . - Hip/Pelvis XRay: no fractures. - Orthostatics vitals within normal limits - CT Head: negative for intracranial hemorrhage or bleed - Cervicalspine CT: no fracture; post-surgical changes - Lumbar spine CT: no fracture; post-surgical changes - CXR: no infiltrate or effusion - continue PT - Plastics Engineering Teacher instructed patient to call company for new rolling walker. Chronic, Mild Right Sided Abdominal Pain - R-sided abdominal tenderness, no signs of rebound tenderness or acute abdomen - Abdominal US (04/16): unremarkable - patient is advised to follow up with GI outpatient Hypokalemia likely due to diarrhea - resolved - K is 4.6 (04/22) - continue to monitor Hyperlipidemia - c/w lipitor BPH - c/w Flomax Dispo: Patient scheduled for clinic appointment for May 02 at 2 pm. Patient is on heparin/coumadin bridge therapy. Continue to monitor on floor. Case was reviewed and discussed with Attending Physician, Dr. Avery. <Jah Avery - Last Filed: 04/23/18 07:50> Objective - Vital Signs/Intake and Output Vital Signs (last 24 hours): Temp Pulse Resp BP Pulse Ox 98.4 F 65 20 140/95 H 100 04/23/18 06:00 04/23/18 06:00 04/23/18 06:00 04/23/18 06:00 04/23/18 06:00 Intake and Output: 04/23/18 04/23/18 06:59 18:59 Intake Total 120 Balance 120 - Medications Medications: Current Medications Atorvastatin Calcium (Lipitor) 10 mg PO HS ON LICENSE OF [facility] Last Admin: 04/22/18 22:07 Dose: 10 mg Cholecalciferol (Vitamin D) 2,000 intlu PO DAILY ON LICENSE OF [facility] Last Admin: 04/22/18 09:27 Dose: 2,000 intlu Enoxaparin Sodium (Lovenox) 90 mg SC Q12H FERNANDO PRN Reason: Protocol Last Admin: 04/22/18 22:09 Dose: 90 mg Guaifenesin/Dextromethorphan (Robitussin Dm) 10 ml PO Q4H PRN PRN Reason: Cough Last Admin: 04/23/18 04:21 Dose: 10 ml Lactobacillus Acidophilus (Bacid Acidophilus) 1 cap PO BID ON LICENSE OF [facility] Last Admin: 04/22/18 17:25 Dose: 1 cap Lidocaine (Lidoderm) 1 ea TD DAILY ON LICENSE OF [facility] Last Admin: 04/22/18 09:28 Dose: 1 ea Oxycodone/Acetaminophen (Percocet 5/325 Mg Tab) 1 tab PO Q6H PRN PRN Reason: Pain, severe (8-10) Stop: 04/23/18 10:32 Last Admin: 04/23/18 04:21 Dose: 1 tab Tamsulosin HCl (Flomax) 0.4 mg PO DAILY ON LICENSE OF [facility] Last Admin: 04/22/18 09:27 Dose: 0.4 mg Warfarin Sodium (Coumadin) 10 mg PO 1800 FERNANDO PRN Reason: Protocol Last Admin: 04/22/18 17:25 Dose: 10 mg Zolpidem Tartrate (Ambien) 10 mg PO HS PRN; Protocol PRN Reason: Insomnia Last Admin: 04/22/18 22:11 Dose: 10 mg - Labs Labs: 04/22/18 06:30 04/22/18 06:30 PT 13.2 SECONDS (9.4-12.5) H 04/22/18 06:30 INR 1.14 04/22/18 06:30 APTT 46.9 Seconds (25.1-36.5) H 04/15/18 00:00 Attending/Attestation - Attestation I have personally seen and examined this patient.: Yes I have fully participated in the care of the patient.: Yes I have reviewed all pertinent clinical information, including history, physical exam and plan: Yes Notes (Text): 04/23/18 07:43 Attending note; Patient seen and examined with resident. Ambulating without any difficulty. Complaining of mild left leg swelling. Patient is 62-year-old male with past medical history significant for DVT of left lower extremity, left hip arthroplasty, C-spine fusion surgery, BPH, and iron deficiency anemia that presented to the emergency room with mechanical fall , dizziness, neck and back pain. 1. Bilateral lower extremity edema. History of DVT in left lower extremity. Lower extremity venous dopplers shows occlusive thrombus in the left femoral vein; partially recannulized comes in the left popliteal vein. IR recommendation appreciated. Patient was seen by art instructor. Started on Lovenox and Coumadin. Eliquis stopped. Dietary education given. 2. Mechanical fall. Possible near syncope. Carotid dopplers show bilateral 20-39 % proximal ICA stenoses. 2D echo shows left ventricle is normal size, normal left ventricular wall thickness, left ventricular function is normal, left ventricular ejection fraction is within normal range. Head CTshows no bleed. Cervical spine CT shows postsurgical changes, no acute fracture. Lumbar spine CT pt showed postsurgical changes in the lower lumbar spine, no evidence of acute fracture. Left hip/pelvis x-ray per radiologist shows left hip prosthesis , no acute findings. Physical therapy evaluation appreciated . 3. BPH. Continue Flomax 4. Hyperlipidemia. Continue Lipitor. 5. Chronic neck and back pain. Continue PT. Lidoderm patch 6. Vitamin D deficiency. Continue oral vitamin D supplement. Upon discharge the patient will follow-up with [facility] clinic.
[2018-04-23] MEDS: guaiFENesin DM 200 mg-20 mg/10 ml UD PO PRN (04:21)
[2018-04-23] MEDS: Oxycodone/Acetaminophen 5/325 mg Tab PO PRN (04:21)
[2018-04-23 07:51] LABS: BASO # 0.04 K/mm3 (0.0-2.0); EOS # 0.2 (0.0-0.7); EOS % 5.8 % (1.5-5.0); GRAN # 1.47 (1.4-6.5); GRAN % 35.6 % (50.0-68.0); HEMOGLOBIN 13.2 g/dL (14.0-18.0); LYMPH % 49.4 % (22.0-35.0); MEAN CELL VOLUME 71.4 fl (80.0-105.0); MEAN CORPUSCULAR HEMOGLOBIN 23.4 pg (25.0-35.0); MEAN CORPUSCULAR HGB CONC 32.8 g/dl (31.0-37.0); MEAN PLATELET VOLUME 10.8 fl (7.0-11.0); MONO # 0.3 (0.1-0.6); MONO % 8.2 % (1.0-6.0); RBC 5.63 10^6/uL (3.5-6.1); RED CELL DISTRIBUTION WIDTH 15.2 % (11.5-14.5); WHITE BLOOD COUNT 4.1 10^3/ul (4.5-11.0)
[2018-04-23 08:08] LABS: ALB/GLOB RATIO 1.2 (1.1-1.8); ALBUMIN 4.7 g/dL (3.0-4.8); ALT/SGPT 35 U/L (7-56); AST/SGOT 34 U/L (17-59); BLOOD UREA NITROGEN 9 mg/dL (7-21); CALCIUM 9.4 mg/dL (8.4-10.5); GFR NON-AFRICAN AMERICAN > 60
[2018-04-23 08:17] LABS: INR 1.21
[2018-04-23 08:34] VITALS: BP 159/87; PULSE 87; TEMP 97.8; O2SAT 99
[2018-04-23] MEDS ORDERED: Oxycodone/Acetaminophen 5/325 mg Tab PO PRN (10:41)
[2018-04-23] MEDS: Enoxaparin 100 mg Syringe SC SCH (10:49)
[2018-04-23] MEDS: Lidocaine 5% Patch TD SCH (10:50)
[2018-04-23] MEDS: Lactobacillus Acidophilus 500 MU Cap PO SCH (10:50)
[2018-04-23] MEDS: Cholecalciferol 1,000 INTLU TAB PO SCH (10:52)
--- NOTE | 2018-04-23 13:46 | CP.PCM.DIS ---
<MedardoAbran - Last Filed: 04/23/18 14:59> Provider - Provider Date of Admission: 04/16/18 15:24 Attending physician: Jah Avery MD Primary care physician: Maira Grimaldo MD Time Spent in preparation of Discharge (in minutes): 90 Diagnosis - Discharge Diagnosis (1) Accident due to mechanical fall without injury Status: Acute Hospital Course - Lab Results Lab Results: Most Recent Lab Values WBC 4.1 10^3/ul (4.5-11.0) L 04/23/18 07:30 RBC 5.63 10^6/uL (3.5-6.1) 04/23/18 07:30 Hgb 13.2 g/dL (14.0-18.0) L 04/23/18 07:30 Hct 40.2 % (42.0-52.0) L 04/23/18 07:30 MCV 71.4 fl (80.0-105.0) L 04/23/18 07:30 MCH 23.4 pg (25.0-35.0) L 04/23/18 07:30 MCHC 32.8 g/dl (31.0-37.0) 04/23/18 07:30 RDW 15.2 % (11.5-14.5) H 04/23/18 07:30 Plt Count 206 10^3/uL (120.0-450.0) 04/23/18 07:30 MPV 10.8 fl (7.0-11.0) 04/23/18 07:30 Gran % 35.6 % (50.0-68.0) L 04/23/18 07:30 Lymph % (Auto) 49.4 % (22.0-35.0) H 04/23/18 07:30 Hood % (Auto) 8.2 % (1.0-6.0) H 04/23/18 07:30 Eos % (Auto) 5.8 % (1.5-5.0) H 04/23/18 07:30 Baso % (Auto) 1.0 % (0.0-3.0) 04/23/18 07:30 Gran # 1.47 (1.4-6.5) 04/23/18 07:30 Lymph # (Auto) 2.0 (1.2-3.4) 04/23/18 07:30 Hood # (Auto) 0.3 (0.1-0.6) 04/23/18 07:30 Eos # (Auto) 0.2 (0.0-0.7) 04/23/18 07:30 Baso # (Auto) 0.04 K/mm3 (0.0-2.0) 04/23/18 07:30 PT 14.0 SECONDS (9.4-12.5) H 04/23/18 07:30 INR 1.21 04/23/18 07:30 APTT 46.9 Seconds (25.1-36.5) H 04/15/18 00:00 Sodium 142 mmol/L (132-148) 04/23/18 07:30 Potassium 4.6 mmol/L (3.6-5.0) 04/23/18 07:30 Chloride 105 mmol/L (98-107) 04/23/18 07:30 Carbon Dioxide 25 mmol/L (21-33) 04/23/18 07:30 Anion Gap 16 (10-20) 04/23/18 07:30 BUN 9 mg/dL (7-21) 04/23/18 07:30 Creatinine 0.7 mg/dl (0.8-1.5) L 04/23/18 07:30 Est GFR ( Amer) > 60 04/23/18 07:30 Est GFR (Non-Af Amer) > 60 04/23/18 07:30 Random Glucose 96 mg/dL (70-110) 04/23/18 07:30 Calcium 9.4 mg/dL (8.4-10.5) 04/23/18 07:30 Phosphorus 3.3 mg/dL (2.5-4.5) 04/23/18 07:30 Magnesium 2.1 mg/dL (1.7-2.2) 04/23/18 07:30 Total Bilirubin 0.3 mg/dL (0.2-1.3) 04/23/18 07:30 AST 34 U/L (17-59) 04/23/18 07:30 ALT 35 U/L (7-56) 04/23/18 07:30 Alkaline Phosphatase 89 U/L (38-126) 04/23/18 07:30 Lactate Dehydrogenase 510 U/L (333-699) 04/15/18 00:00 Total Creatine Kinase 410 U/L (35-230) H 04/15/18 00:00 CK-MB (CK-2) 5.8 ng/mL (0.0-3.6) H 04/15/18 00:00 CK-MB (CK-2) % 1.4 % (2.5-3.0) L 04/15/18 00:00 Troponin I < 0.01 ng/mL 04/15/18 16:50 Total Protein 8.5 g/dL (5.8-8.3) H 04/23/18 07:30 Albumin 4.7 g/dL (3.0-4.8) 04/23/18 07:30 Globulin 3.8 gm/dL 04/23/18 07:30 Albumin/Globulin Ratio 1.2 (1.1-1.8) 04/23/18 07:30 Vitamin B12 582 pg/mL (239-931) 04/15/18 06:30 25-OH Vitamin D Total 26.2 NG/ML (30.0-100.0) L 04/15/18 06:30 Urine Color Straw (YELLOW) 04/15/18 00:30 Urine Appearance Clear (CLEAR) 04/15/18 00:30 Urine pH 7.0 (4.7-8.0) 04/15/18 00:30 Ur Specific [place] <= 1.005 (1.005-1.035) 04/15/18 00:30 Urine Protein Negative mg/dL (<30 mg/dL) 04/15/18 00:30 Urine Glucose (UA) Negative mg/dL (NEGATIVE) 04/15/18 00:30 Urine Ketones Negative mg/dL (NEGATIVE) 04/15/18 00:30 Urine Blood Negative (NEGATIVE) 04/15/18 00:30 Urine Nitrate Negative (NEGATIVE) 04/15/18 00:30 Urine Bilirubin Negative (NEGATIVE) 04/15/18 00:30 Urine Urobilinogen 0.2 E.U./dL (<1 E.U./dL) 04/15/18 00:30 Ur Leukocyte Esterase Negative Venkat/uL (NEGATIVE) 04/15/18 00:30 - Hospital Course Hospital Course: Hospital Admission: Patient is a 62 y/o M with a PMH of DVT, L hip arthroplasty 2016), C spine fusion surgery, BPH, history of c. diff, Iron deficiency anemia, who presented on 04/15 after a mechanical fall vs near syncopal episode for neck and low back pain. Patient uses a walker to help with ambulation s/p L hip arthroplasty in 2016. He states that 2 days ago he was using his walker and was about to sit down when the breaks on his walker failed and it slid forward away from his grasp. He also states that he may have experienced a bout of light headedness near the time of the fall. He denied any LOC after the fall. He then felt some pain in his neck and in his lower back a day after the fall, but he is coming in because he states the pain is not getting any better. He also admits to having non-bloody diarrhea for 2 days (3 loose soft BM's a day) with no recent antibiotic use. During hospital stay, imaging was done. Cervical spine CT without contrast showed no postsurgical changes or acute fractures, CXR was negative for pulmonary etiology, CT scan Lumbar spine w/o contrast: Post surgical changes in the lower lumbar spine with no evidence of acute fracture. Head CT was negative for bleeds and intracranial hemorrhage. Neurology was consulted to rule out near -syncope. Neuro workup (Echo, Carotid ultrasound) was negative and patient was cleared. Fall is likely mechanical in nature. Patient has a history of DVT in the left lower extremity and takes Eliquis 5 mg at home. Lower extremity venous doppler was done and showed occlusive left femoral thrombus with partially recannulized thrombus in the left popliteal vein. Hematology (Dr. Marcial) was consulted due to acute findings of the venous doppler. Hematology examined the patient and recommended that he get a hypercoaguable workup as outpatient. Heme also recommended that patient discontinue eliquis and start on lovenox/coumadin bridge therapy for more appropriate monitoring. Patient has been appropriately dosed 1 mg/kg q12 Lovenox injections and 10mg PO daily warfarin. Otherwise, patient has been stable during hospital admission and is safe for discharge. Upon Discharge: Patient has been cleared by neurology (Dr. Lopez). Patient will follow up with smeller as outpatient for hypercoaguable workup (Dr. Marcial). Patient will continue with home meds. Patient will take warfarin 10 mg daily for the next 3 days after discharge. Patient will also take Lovenox injections q12 for the next 10 days. Patient will get PT/INR labs drawn 3 days after discharge at hospital lab. Discharge Exam - Head Exam Head Exam: ATRAUMATIC, NORMAL INSPECTION, NORMOCEPHALIC - Eye Exam Eye Exam: EOMI, Normal appearance, PERRL Pupil Exam: NORMAL ACCOMODATION, PERRL - ENT Exam ENT Exam: Mucous Membranes Moist - Neck Exam Neck exam: Full Rom - Respiratory Exam Respiratory Exam: Clear to PA & Lateral, NORMAL BREATHING PATTERN, UNREMARKABLE. absent: Accessory Muscle Use - Cardiovascular Exam Cardiovascular Exam: REGULAR RHYTHM, +S1, +S2, Systolic Murmur - GI/Abdominal Exam GI & Abdominal Exam: Normal Bowel Sounds, Soft. absent: Firm, Guarding, Tenderness - Extremities Exam Extremities exam: full ROM, tenderness (Mild tenderness to palpation of lower extremities. ), pedal pulses present - Back Exam Back exam: NORMAL INSPECTION - Neurological Exam Neurological exam: Alert, Normal Gait, Oriented x3 - Skin Skin Exam: Dry, Intact, Normal Color, Warm Discharge Plan - Discharge Medications Prescriptions: Enoxaparin [Lovenox] 90 mg SC Q12H 5 Days #10 syr oxyCODONE/Acetaminophen [Percocet 5/325 mg Tab] 1 ea PO Q6 #10 tab Warfarin [Coumadin] 10 mg PO 1800 3 Days #3 tab - Follow Up Plan Condition: FAIR Disposition: HOME/ ROUTINE Patient education suggested?: Yes Instructions: Syncope (Fainting), Preventing Falls in the Older Adult, Hypokalemia (DC), High Potassium Diet, Preventing Falls, Chronic Neck Pain (DC) , Anti-Clotting Medicines: Warfarin (Coumadin), Going Home on Blood Thinners , Back Pain (GEN) Additional Instructions: 1) April at 2:00 PM is your clinic appointment in [facility]. 2) You are to continue taking these medications as prescribed: Lipitor 10 mg PO at night, Vitamin D 2000 iu PO daily tablet, Flomax 0.4 mg PO daily. 3) Please take Warfarin 10 mg daily this week, Sunday, Sunday, . 4) You are to take Lovenox injection every 12 hours (8 am and 8pm) for the next 10 days. 5) Please follow up on , April 25, 2018 at outpatient lab at [facility] for PT/INR labs to be drawn. 6) You are to follow up with a smeller (Dr. Marcial) for a hypercoaguable work up. 7) Please return to the nearest Emergency Room for any recurrence of symptoms. Referrals: Maira Grimaldo MD [Primary Care Provider] - <Jah Avery - Last Filed: 04/24/18 14:42> Provider - Provider Date of Admission: 04/16/18 15:24 Attending physician: Jah Avery MD Primary care physician: Maira Grimaldo MD Hospital Course - Lab Results Lab Results: Most Recent Lab Values WBC 4.1 10^3/ul (4.5-11.0) L 04/23/18 07:30 RBC 5.63 10^6/uL (3.5-6.1) 04/23/18 07:30 Hgb 13.2 g/dL (14.0-18.0) L 04/23/18 07:30 Hct 40.2 % (42.0-52.0) L 04/23/18 07:30 MCV 71.4 fl (80.0-105.0) L 04/23/18 07:30 MCH 23.4 pg (25.0-35.0) L 04/23/18 07:30 MCHC 32.8 g/dl (31.0-37.0) 04/23/18 07:30 RDW 15.2 % (11.5-14.5) H 04/23/18 07:30 Plt Count 206 10^3/uL (120.0-450.0) 04/23/18 07:30 MPV 10.8 fl (7.0-11.0) 04/23/18 07:30 Gran % 35.6 % (50.0-68.0) L 04/23/18 07:30 Lymph % (Auto) 49.4 % (22.0-35.0) H 04/23/18 07:30 Hood % (Auto) 8.2 % (1.0-6.0) H 04/23/18 07:30 Eos % (Auto) 5.8 % (1.5-5.0) H 04/23/18 07:30 Baso % (Auto) 1.0 % (0.0-3.0) 04/23/18 07:30 Gran # 1.47 (1.4-6.5) 04/23/18 07:30 Lymph # (Auto) 2.0 (1.2-3.4) 04/23/18 07:30 Hood # (Auto) 0.3 (0.1-0.6) 04/23/18 07:30 Eos # (Auto) 0.2 (0.0-0.7) 04/23/18 07:30 Baso # (Auto) 0.04 K/mm3 (0.0-2.0) 04/23/18 07:30 PT 14.0 SECONDS (9.4-12.5) H 04/23/18 07:30 INR 1.21 04/23/18 07:30 APTT 46.9 Seconds (25.1-36.5) H 04/15/18 00:00 Sodium 142 mmol/L (132-148) 04/23/18 07:30 Potassium 4.6 mmol/L (3.6-5.0) 04/23/18 07:30 Chloride 105 mmol/L (98-107) 04/23/18 07:30 Carbon Dioxide 25 mmol/L (21-33) 04/23/18 07:30 Anion Gap 16 (10-20) 04/23/18 07:30 BUN 9 mg/dL (7-21) 04/23/18 07:30 Creatinine 0.7 mg/dl (0.8-1.5) L 04/23/18 07:30 Est GFR ( Amer) > 60 04/23/18 07:30 Est GFR (Non-Af Amer) > 60 04/23/18 07:30 Random Glucose 96 mg/dL (70-110) 04/23/18 07:30 Calcium 9.4 mg/dL (8.4-10.5) 04/23/18 07:30 Phosphorus 3.3 mg/dL (2.5-4.5) 04/23/18 07:30 Magnesium 2.1 mg/dL (1.7-2.2) 04/23/18 07:30 Total Bilirubin 0.3 mg/dL (0.2-1.3) 04/23/18 07:30 AST 34 U/L (17-59) 04/23/18 07:30 ALT 35 U/L (7-56) 04/23/18 07:30 Alkaline Phosphatase 89 U/L (38-126) 04/23/18 07:30 Lactate Dehydrogenase 510 U/L (333-699) 04/15/18 00:00 Total Creatine Kinase 410 U/L (35-230) H 04/15/18 00:00 CK-MB (CK-2) 5.8 ng/mL (0.0-3.6) H 04/15/18 00:00 CK-MB (CK-2) % 1.4 % (2.5-3.0) L 04/15/18 00:00 Troponin I < 0.01 ng/mL 04/15/18 16:50 Total Protein 8.5 g/dL (5.8-8.3) H 04/23/18 07:30 Albumin 4.7 g/dL (3.0-4.8) 04/23/18 07:30 Globulin 3.8 gm/dL 04/23/18 07:30 Albumin/Globulin Ratio 1.2 (1.1-1.8) 04/23/18 07:30 Vitamin B12 582 pg/mL (239-931) 04/15/18 06:30 25-OH Vitamin D Total 26.2 NG/ML (30.0-100.0) L 04/15/18 06:30 Urine Color Straw (YELLOW) 04/15/18 00:30 Urine Appearance Clear (CLEAR) 04/15/18 00:30 Urine pH 7.0 (4.7-8.0) 04/15/18 00:30 Ur Specific [place] <= 1.005 (1.005-1.035) 04/15/18 00:30 Urine Protein Negative mg/dL (<30 mg/dL) 04/15/18 00:30 Urine Glucose (UA) Negative mg/dL (NEGATIVE) 04/15/18 00:30 Urine Ketones Negative mg/dL (NEGATIVE) 04/15/18 00:30 Urine Blood Negative (NEGATIVE) 04/15/18 00:30 Urine Nitrate Negative (NEGATIVE) 04/15/18 00:30 Urine Bilirubin Negative (NEGATIVE) 08/27/18 00:30 Urine Urobilinogen 0.2 E.U./dL (<1 E.U./dL) 04/15/18 00:30 Ur Leukocyte Esterase Negative Venkat/uL (NEGATIVE) 04/15/18 00:30 Attending/Attestation - Attestation I have personally seen and examined this patient.: Yes I have fully participated in the care of the patient.: Yes I have reviewed all pertinent clinical information, including history, physical exam and plan: Yes Notes (Text): 04/24/18 14:40 Attending note; Patient seen and examined with resident. Ambulating without any difficulty. Complaining of mild left leg swelling. Patient is 62-year-old male with past medical history significant for DVT of left lower extremity, left hip arthroplasty, C-spine fusion surgery, BPH, and iron deficiency anemia that presented to the emergency room with mechanical fall , dizziness, neck and back pain. 1. Bilateral lower extremity edema. History of DVT in left lower extremity. Lower extremity venous dopplers shows occlusive thrombus in the left femoral vein; partially recannulized comes in the left popliteal vein. IR recommendation appreciated. Patient was seen by smeller. Started on Lovenox and Coumadin. Eliquis stopped. Dietary education given. patient will be discharged home with bridging Lovenox and Coumadin. Follow-up INR in 2 days to adjust the dose of Coumadin. 2. Mechanical fall. Carotid dopplers show bilateral 20-39% proximal ICA stenoses. 2D echo shows left ventricle is normal size, normal left ventricular wall thickness, left ventricular function is normal, left ventricular ejection fraction is within normal range. Head CTshows no bleed. Cervical spine CT shows postsurgical changes, no acute fracture. Lumbar spine CT pt showed postsurgical changes in the lower lumbar spine, no evidence of acute fracture. Left hip/pelvis x-ray per radiologist shows left hip prosthesis , no acute findings. Physical therapy evaluation appreciated . 3. BPH. Continue Flomax 4. Hyperlipidemia. Continue Lipitor. 5. Chronic neck and back pain. Continue PT. Lidoderm patch 6. Vitamin D deficiency. Continue oral vitamin D supplement. Upon discharge the patient will follow-up with PMD Dr. Ledezma. 04/24/18 14:42
== END 2018-04-23 15:38 | disposition home or self-care (01) | DRG 130 ==
LOC: ED 22:58 → ERH 04-15 02:00 → 2RSO 04-15 03:07 → OBSVTOIN 04-16 15:24 → 5RSO 04-16 19:15
PROVIDERS: ADMIT Internal Medicine; ATTEND Internal Medicine
DX: I82.412 Acute embolism and thrombosis of left femoral vein (principal); E87.6 Hypokalemia; I65.23 Occlusion and stenosis of bilateral carotid arteries; I82.432 Acute embolism and thrombosis of left popliteal vein; R29.6 Repeated falls; N40.0 Benign prostatic hyperplasia without lower urinary tract symptoms; D50.9 Iron deficiency anemia, unspecified; E78.5 Hyperlipidemia, unspecified; G89.29 Other chronic pain; E55.9 Vitamin D deficiency, unspecified; R19.7 Diarrhea, unspecified; D64.9 Anemia, unspecified; K44.9 Diaphragmatic hernia without obstruction or gangrene; M54.2 Cervicalgia; M54.9 Dorsalgia, unspecified; Z91.81 History of falling; Z79.01 Long term (current) use of anticoagulants; Z86.718 Personal history of other venous thrombosis and embolism; Z96.642 Presence of left artificial hip joint; Z98.1 Arthrodesis status

== ENCOUNTER 2018-05-13 15:20 | Emergency (ER) | payer MEDICAID ==
--- NOTE | 2018-05-13 16:41 | ED PDOC ---
Arrival/HPI - General Time Seen by Provider: 05/13/18 16:38 Historian: Patient - History of Present Illness Narrative History of Present Illness (Text): 62 year old male with history of blood clots presents to Emergency Department for evaluation of bilateral leg pain and swelling. Patient notes pain is worse on the left leg, previous visit to Emergency Department and was sent to the Emergency Department by PMD today after not being able to get in contact with local doctors for follow-up. Ambulates with pain. Notes taking Coumadin, compliant with medication. Denies taking other medications, shortness of breath , chest pain, fever, nausea, vomiting, and other associated symptoms. Past Medical History - Provider Review Nursing Documentation Reviewed: Yes - Infectious Disease Hx of Infectious Diseases: None - Tetanus Immunization Tetanus Immunization: Unknown - Cardiac Hx Cardiac Disorders: Yes - Pulmonary Hx Respiratory Disorders: Yes Hx Pneumonia: Yes - Neurological Hx Neurological Disorder: No - HEENT Hx HEENT Disorder: No - Renal Hx Renal Disorder: No - Endocrine/Metabolic Hx Endocrine Disorders: No - Hematological/Oncological Hx Blood Disorders: No - Integumentary Hx Dermatological Disorder: No - Musculoskeletal/Rheumatological Hx Musculoskeletal Disorders: Yes Other/Comment: Falls, L hip r/p, spine sx, h/o clot on left leg - Gastrointestinal Hx Gastrointestinal Disorders: Yes Hx Nausea: Yes Hx Vomiting: Yes - Genitourinary/Gynecological Hx Genitourinary Disorders: Yes (HX SCROTAL INFECTION) Hx Prostate Problems: Yes - Psychiatric Hx Psychophysiologic Disorder: No Hx Depression: No Hx Substance Use: No - Surgical History Hx Orthopedic Surgery: Yes (spine sx 3-4 years ago) Other/Comment: L hip r/p - Anesthesia Hx Anesthesia: Yes Hx Anesthesia Reactions: Yes Hx Malignant Hyperthermia: No - Suicidal Assessment Feels Threatened In Home Enviroment: No Family/Social History - Physician Review Nursing Documentation Reviewed: Yes Family/Social History: Blood Clots Smoking Status: Never Smoked Hx Alcohol Use: No Hx Substance Use: No Hx Substance Use Treatment: No Allergies/Home Meds Allergies/Adverse Reactions: Allergies No Known Allergies Allergy (Verified 05/13/18 16:48) Home Medications: Home Meds Medication Instructions Recorded Confirmed Atorvastatin [Lipitor] 10 mg PO HS 09/30/16 04/14/18 Tamsulosin [Flomax] 0.4 mg PO DAILY 09/30/16 04/14/18 Review of Systems - Review of Systems Cardiovascular: absent: Chest Pain Musculoskeletal: Other (bilateral leg pain and swelling. Left leg pain radiates to right thigh.) Physical Exam Vital Signs Temp Pulse Resp BP Pulse Ox 05/13/18 19:30 98.0 F 86 18 135/71 98 Temperature: Afebrile Respiratory Rate: Normal Appearance: Positive for: Non-Toxic Mental Status: Positive for: Alert and Oriented X 3 - Systems Exam Head: Present: Atraumatic, Normocephalic Pupils: Present: PERRL Extroacular Muscles: Present: EOMI Mouth: Present: Moist Mucous Membranes Neck: Present: Normal Range of Motion. No: MIDLINE TENDERNESS, Paraspinal Tenderness Respiratory/Chest: No: Respiratory Distress Cardiovascular: Present: Regular Rate and Rhythm, Normal S1, S2. No: Murmurs Abdomen: No: Tenderness, Distention, Peritoneal Signs Upper Extremity: Present: Normal Inspection, Normal ROM (x2). No: Cyanosis, Edema Lower Extremity: Present: Edema (pitting edema ), CALF TENDERNESS. No: Deformity Neurological: Present: GCS=15, CN II-XII Intact, Speech Normal Skin: Present: Warm, Dry, Normal Color. No: Rashes Psychiatric: Present: Alert, Oriented x 3, Normal Insight, Normal Concentration Medical Decision Making ED Course and Treatment: Plan: --Blood sent. --Given Morphine. --U/S Duplex lower extremity vein bilateral 05/13/18 19:43 US shows stable DVT L leg, no DVT R leg. Labs unremarkable. INR appropriate. Paged PMD [place]. - Lab Interpretations Lab Results: 05/13/18 18:34 05/13/18 18:34 Lab Results 05/13/18 18:34: PT 34.5 H, INR 2.96, APTT 51.6 H 05/13/18 18:34: WBC 6.8 D, RBC 5.26, Hgb 12.2 L, Hct 37.7 L, MCV 71.7 L, MCH 23.2 L, MCHC 32.4, RDW 15.7 H, Plt Count 224, MPV 10.4, Gran % 65.9, Lymph % ( Auto) 26.6, [place] % (Auto) 5.1, Eos % (Auto) 2.1, Baso % (Auto) 0.3, Gran # 4.49 , Lymph # (Auto) 1.8, [place] # (Auto) 0.4, Eos # (Auto) 0.1, Baso # (Auto) 0.02 05/13/18 18:34: Sodium 142, Potassium 3.7, Chloride 106, Carbon Dioxide 29, Anion Gap 11, BUN 12, Creatinine 0.8, Est GFR ( Amer) > 60, Est GFR (Non- Af Amer) > 60, Random Glucose 91, Calcium 9.1, Total Bilirubin 0.7, AST 50, ALT 26, Alkaline Phosphatase 114, Total Protein 8.5 H, Albumin 4.5, Globulin 4.1, Albumin/Globulin Ratio 1.1 - RAD Interpretation Radiology Orders: 05/13/18 16:45 DUPLEX LOWER EXTRM VEIN BILAT [US] Stat - Medication Orders Current Medication Orders: Discontinued Medications Morphine Sulfate (Morphine) 2 mg IVP STAT STA Stop: 05/13/18 16:47 Last Admin: 05/13/18 18:16 Dose: 2 mg MAR Pain Assessment Document 05/13/18 18:16 TED (Rec: 05/13/18 18:16 TED [id number]) Pain Reassessment Is this a pain reassessment? Yes Presence of Pain Presence of Pain Yes Pain Scale Used Pain Scale Used Numeric Location Left, Right or Bilateral Left Pain Location Body Site Leg Description Description Pressure Intensity of Pain at present 10 IVP Administration Document 05/13/18 18:16 TED (Rec: 05/13/18 18:16 TED [id number]) Charges for Administration # of IVP Administrations 1 - Scribe Statement The provider has reviewed the documentation as recorded by the Scribe (Jolanta Varner) Provider Attestation: All medical record entries made by the Scribe were at my direction and personally dictated by me. I have reviewed the chart and agree that the record accurately reflects my personal performance of the history, physical exam, medical decision making, and the department course for this patient. I have also personally directed, reviewed, and agree with the discharge instructions and disposition. Disposition/Present on Arrival - Present on Arrival Any Indicators Present on Arrival: Yes History of DVT/PE: Yes History of Uncontrolled Diabetes: No Urinary Catheter: No History Surgical Site Infection Following: None - Disposition Have Diagnosis and Disposition been Completed?: Yes Diagnosis: DVT (deep venous thrombosis) Disposition: HOME/ ROUTINE Disposition Time: 19:10 Patient Plan: Discharge Condition: STABLE Discharge Instructions (ExitCare): Deep Vein Thrombosis (Blood Clots in the Legs) Prescriptions: Clindamycin [Cleocin] 300 mg PO Q8H #21 cap Referrals: Maira Grimaldo MD [Primary Care Provider] - Follow up with primary
[2018-05-13] MEDS ORDERED: Morphine 2 mg/ml ISec IVP STA (16:46)
[2018-05-13 16:48] VITALS: BMI 27.2
--- NOTE | 2018-05-13 18:44 | US ---
HISTORY: Leg pain and swelling. Evaluate for DVT PHYSICIAN(S): Chilango Hardin MD. TECHNIQUE: Duplex sonography and color-flow Doppler with graded compression were used to evaluate the deep venous systems of both lower extremities. FINDINGS: There is acute on chronic occlusive thrombus in the left femoral vein and nonocclusive thrombus in the left popliteal vein. The left common femoral vein is patent and compressible. 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
[2018-05-13 18:46] LABS: BASO # 0.02 K/mm3 (0.0-2.0); BASO % 0.3 % (0.0-3.0); EOS # 0.1 (0.0-0.7); EOS % 2.1 % (1.5-5.0); GRAN # 4.49 (1.4-6.5); GRAN % 65.9 % (50.0-68.0); HEMOGLOBIN 12.2 g/dL (14.0-18.0); LYMPH # 1.8 (1.2-3.4); LYMPH % 26.6 % (22.0-35.0); MEAN CELL VOLUME 71.7 fl (80.0-105.0); MEAN CORPUSCULAR HEMOGLOBIN 23.2 pg (25.0-35.0); MEAN CORPUSCULAR HGB CONC 32.4 g/dl (31.0-37.0); MEAN PLATELET VOLUME 10.4 fl (7.0-11.0); MONO # 0.4 (0.1-0.6); MONO % 5.1 % (1.0-6.0); RBC 5.26 10^6/uL (3.5-6.1); RED CELL DISTRIBUTION WIDTH 15.7 % (11.5-14.5); WHITE BLOOD COUNT 6.8 10^3/ul (4.5-11.0)
[2018-05-13 18:50] LABS: INR 2.96; PARTIAL THROMBOPLASTIN TIME 51.6 Seconds (25.1-36.5); PROTHROMBIN TIME 34.5 SECONDS (9.4-12.5)
[2018-05-13 19:05] LABS: ALB/GLOB RATIO 1.1 (1.1-1.8); ALBUMIN 4.5 g/dL (3.0-4.8); ALT/SGPT 26 U/L (7-56); AST/SGOT 50 U/L (17-59); BLOOD UREA NITROGEN 12 mg/dL (7-21); CALCIUM 9.1 mg/dL (8.4-10.5); GFR NON-AFRICAN AMERICAN > 60
[2018-05-13 19:30] VITALS: TEMP 98
[2018-05-13] MEDS ORDERED: Oxycodone/Acetaminophen 5/325 mg Tab PO STA (19:40)
[2018-05-13 20:04] VITALS: BP 143/82; PULSE 68; RESP 16; O2SAT 97
== END 2018-05-13 20:03 | disposition home or self-care (01) ==
LOC: ED 15:20
DX: I82.412 Acute embolism and thrombosis of left femoral vein (principal); I82.432 Acute embolism and thrombosis of left popliteal vein
CPT/HCPCS: 80053; 85025; 85610; 85730; 93970; 96374; 99283; J2270

== ENCOUNTER 2018-07-09 19:54 | Emergency (ER) | payer MEDICAID ==
[2018-07-09 19:54] VITALS: BMI 27.2
--- NOTE | 2018-07-09 20:46 | ED PDOC ---
Arrival/HPI - General Historian: Patient - History of Present Illness Narrative History of Present Illness (Text): 07/09/18 21:45 62 year old male past medical hx of DVT, PE, BPH, C. diff, presents to Emergency department complaining of L lower leg swelling and pain x 1 month that was progressively getting worse today. Pt was recently admitted to [facility] in Apr 2018 and treated for DVT. Describes pain as throbbing/aching. Rates pain as 10/10, pain shoots down entire leg. Pt states he recently had INR checked by his doctor 2 weeks ago, states that the INR was 1. Was on coumadin 7.5 mg daily and lovenox injections daily but reports he has not been on any blood thinners for the past several days. States his INR is difficult to control. Reports subjective fevers and chills, non-productive cough x 3 days with pleuritic chest pain. Denies hx of sick contacts or recent illnesses. Follows with sales project manager Dr. Evan Buchanan for INR. Denies headache, dizziness, shortness of breath, n/v/d/c, abd pain, urinary complaints, or other symptoms. Past medical history: DVT, PE, BPH, C. diff PSurghx: L hip arthroplasty 2016, C-spine fusion Allergies: NKDA Meds: Lipitor, Flomax Fam hx: denies Soc hx: denies smoking, EtOH, or illicit drug use PMD: Dr. Branch ([place]) <Prabhu Celestin - Last Filed: 07/10/18 02:22> <Adriel Huerta - Last Filed: 07/12/18 11:37> - General Chief Complaint: Dizziness/Lightheaded Time Seen by Provider: 07/09/18 21:30 Past Medical History - Provider Review Nursing Documentation Reviewed: Yes - Infectious Disease Hx of Infectious Diseases: None - Tetanus Immunization Tetanus Immunization: Unknown - Cardiac Hx Cardiac Disorders: Yes - Pulmonary Hx Respiratory Disorders: Yes Hx Pneumonia: Yes - Neurological Hx Neurological Disorder: No - HEENT Hx HEENT Disorder: No - Renal Hx Renal Disorder: No - Endocrine/Metabolic Hx Endocrine Disorders: No - Hematological/Oncological Hx Blood Disorders: No - Integumentary Hx Dermatological Disorder: No - Musculoskeletal/Rheumatological Hx Musculoskeletal Disorders: Yes Other/Comment: Falls, L hip r/p, spine sx, h/o clot on left leg - Gastrointestinal Hx Gastrointestinal Disorders: Yes Hx Nausea: Yes Hx Vomiting: Yes - Genitourinary/Gynecological Hx Genitourinary Disorders: Yes (HX SCROTAL INFECTION) Hx Prostate Problems: Yes - Psychiatric Hx Psychophysiologic Disorder: No Hx Depression: No Hx Substance Use: No - Surgical History Hx Orthopedic Surgery: Yes (spine sx 3-4 years ago) Other/Comment: L hip r/p - Anesthesia Hx Anesthesia: Yes Hx Anesthesia Reactions: Yes Hx Malignant Hyperthermia: No - Suicidal Assessment Feels Threatened In Home Enviroment: No <Prabhu Celestin - Last Filed: 07/10/18 02:22> Family/Social History Family/Social History: No Known Family HX Smoking Status: Never Smoked Hx Alcohol Use: No Hx Substance Use: No Hx Substance Use Treatment: No <Prabhu Celestin - Last Filed: 07/10/18 02:22> Allergies/Home Meds <Prabhu Celestin - Last Filed: 07/10/18 02:22> <Adriel Huerta - Last Filed: 07/12/18 11:37> Allergies/Adverse Reactions: Allergies No Known Allergies Allergy (Verified 07/10/18 21:19) Home Medications: Home Meds Medication Instructions Recorded Confirmed RX: Atorvastatin [Lipitor] 10 mg PO HS 09/30/16 04/14/18 RX: Tamsulosin [Flomax] 0.4 mg PO DAILY 09/30/16 04/14/18 Review of Systems - Review of Systems Constitutional: Fatigue, Fevers. absent: Weight Change Respiratory: Cough. absent: SOB, Sputum, Wheezing Cardiovascular: Chest Pain, Calf Pain. absent: Palpitations, Edema, TINEO Gastrointestinal: absent: Abdominal Pain, Stool Changes, Constipation, Diarrhea, Nausea, Vomiting Skin: absent: Laceration, Ulcer, Cellulitis <Prabhu Celestin - Last Filed: 07/10/18 02:22> - Physician Review All systems were reviewed & negative as marked: Yes <Adriel Huerta - Last Filed: 07/12/18 11:37> Physical Exam Vital Signs Reviewed: Yes Vital Signs Temp Pulse Resp BP Pulse Ox 07/09/18 19:55 98.6 F 108 H 18 156/90 H 100 Temperature: Afebrile Blood Pressure: Hypertensive Pulse: Tachycardic Appearance: Positive for: Well-Appearing, Non-Toxic Pain Distress: Severe Mental Status: Positive for: Alert and Oriented X 3 - Systems Exam Head: Present: Atraumatic, Normocephalic Pupils: Present: PERRL Extroacular Muscles: Present: EOMI Conjunctiva: Present: Normal Mouth: Present: Moist Mucous Membranes Neck: Present: Normal Range of Motion Respiratory/Chest: Present: Clear to Auscultation, Good Air Exchange. No: Wheezes, Rales, Rhonchi Cardiovascular: Present: Normal S1, S2, Tachycardic. No: Murmurs, Rub, Gallop Abdomen: Present: Normal Bowel Sounds. No: Tenderness, Distention, Rebound, Mass/Organomegaly Lower Extremity: Present: Edema, CALF TENDERNESS, Swelling, Neurovascularly Intact Skin: Present: Warm, Dry, Normal Color Psychiatric: Present: Alert, Oriented x 3 <Prabhu Celestin - Last Filed: 07/10/18 02:22> Vital Signs Temp Pulse Resp BP Pulse Ox 07/09/18 22:01 95 H 17 142/39 L 97 07/09/18 19:55 98.6 F 108 H 18 156/90 H 100 <Adriel Huerta - Last Filed: 07/12/18 11:37> Medical Decision Making ED Course and Treatment: 07/09/18 21:57 Reviewed results of b/l duplex sono. Acute on chronic DVT in L femoral and popliteal veins. No interval change from prior study. Pending CBC, CMP, coags. Will continue to monitor. 07/09/18 23:01 Placed call out to pt's sales project manager (Dr. Marcial) answering service. Awaiting callback. 07/09/18 23:58 Reassessed pt, pt states he wants something for his pain in his L lower extremity. Will give morphine dose x1 and monitor response to tx. 07/10/18 02:10 Reassessed pt. Pain improved s/p morphine dose. States throat feels a little better after Robitussin. Will give pt prescription for Lovenox 80 mg bid x 1 week. Instructed pt to f/u MIKE with sales project manager and PMD for titration of anticoagula tion meds for hx DVT within the end of the week. Pt understands course of treatment and will follow-up accordingly. Re-evaluation Time: 02:10 Reassessment Condition: Re-examined, Improved, Improving,but remains with symptoms - RAD Interpretation Radiology Orders: 07/09/18 20:44 DUPLEX LOWER EXTRM VEIN BILAT [US] Stat <Prabhu Celestin - Last Filed: 07/10/18 02:22> ED Course and Treatment: Impression: Pt seen and evaluated with lead medical technologist. Aware and agree with HPI, clinical findings, plan, and management. Pt, whose past medical history includes DVT, PE, BPH, C. diff, and cervical spine fusion, presented for left lower leg swelling and pain. Plan: -- US Duplex Lower Extremities -- Labs -- Reassess and disposition. - RAD Interpretation Radiology Orders: 07/09/18 20:44 DUPLEX LOWER EXTRM VEIN BILAT [US] Stat <Adriel Huerta - Last Filed: 07/12/18 11:37> - PA / DERMATOPATHOLOGIST / Resident Statement / has reviewed & agrees with the documentation as recorded. / has examined the patient and agrees with the treatment plan. <Adriel Huerta - Last Filed: 07/12/18 11:37> Disposition/Present on Arrival - Present on Arrival Any Indicators Present on Arrival: Yes History of DVT/PE: Yes History of Uncontrolled Diabetes: No Urinary Catheter: No History of Decub. Ulcer: No History Surgical Site Infection Following: None - Disposition Have Diagnosis and Disposition been Completed?: Yes Disposition Time: 02:22 <Prabhu Celestin - Last Filed: 07/10/18 02:22> <Adriel Huerta - Last Filed: 07/12/18 11:37> - Disposition Diagnosis: Pain and swelling of left lower extremity Disposition: HOME/ ROUTINE Condition: STABLE Discharge Instructions (ExitCare): Dependent Edema (DC) Print Language: SOUTH SUDANESE Additional Instructions: Please take Lovenox as prescribed twice daily for the next week. Please follow-up with your primary care physician (Dr. Branch) and your sales project manager (Dr. Marcial) within several days after ER discharge. Should symptoms recur or worsen, please call your primary care physician or report to your nearest emergency department. Prescriptions: Enoxaparin [Lovenox] 80 mg SQ BID #14 syr Referrals: Maira Grimaldo MD [Primary Care Provider] - Follow up with primary Forms: [employer] (Danish)
--- NOTE | 2018-07-09 21:57 | US ---
HISTORY: Leg pain and swelling. Evaluate for DVT PHYSICIAN(S): Chilango Hardin MD. TECHNIQUE: Duplex sonography and color-flow Doppler with graded compression were used to evaluate the deep venous systems of both lower extremities. FINDINGS: There is acute/subacute thrombus in the left femoral and popliteal veins. The left common femoral vein is patent and compressible There is no sonographic evidence for deep venous thrombosis the visualized segments of the right lower extremity IMPRESSION: Acute/subacute thrombus in the left femoral and popliteal veins
[2018-07-09 22:01] VITALS: RESP 17
[2018-07-09 22:47] LABS: ALB/GLOB RATIO 1.1 (1.1-1.8); ALT/SGPT 34 U/L (7-56); AST/SGOT 29 U/L (17-59); BLOOD UREA NITROGEN 19 mg/dL (7-21); CALCIUM 8.9 mg/dL (8.4-10.5); GFR NON-AFRICAN AMERICAN > 60
[2018-07-09 22:49] LABS: BASO # 0.03 K/mm3 (0.0-2.0); BASO % 0.5 % (0.0-3.0); EOS # 0.2 (0.0-0.7); EOS % 3.4 % (1.5-5.0); GRAN # 3.46 (1.4-6.5); GRAN % 53.7 % (50.0-68.0); HEMOGLOBIN 11.8 g/dL (14.0-18.0); LYMPH # 2.4 (1.2-3.4); LYMPH % 36.7 % (22.0-35.0); MEAN CELL VOLUME 73.1 fl (80.0-105.0); MEAN CORPUSCULAR HEMOGLOBIN 23.5 pg (25.0-35.0); MEAN CORPUSCULAR HGB CONC 32.2 g/dl (31.0-37.0); MEAN PLATELET VOLUME 10.9 fl (7.0-11.0); MONO # 0.4 (0.1-0.6); MONO % 5.7 % (1.0-6.0); RBC 5.02 10^6/uL (3.5-6.1); RED CELL DISTRIBUTION WIDTH 15.7 % (11.5-14.5); WHITE BLOOD COUNT 6.5 10^3/uL (4.5-11.0)
[2018-07-09 22:50] LABS: INR 1.1; PROTHROMBIN TIME 12.6 SECONDS (9.4-12.5)
[2018-07-09] MEDS ORDERED: Enoxaparin 80 mg Syringe SC STA (23:17)
[2018-07-09] MEDS ORDERED: Morphine 2 mg/ml ISec IVP STA (23:57)
[2018-07-10] MEDS ORDERED: guaiFENesin 100 mg/5 ml Syrup UD PO ONE (00:38)
[2018-07-10 01:55] VITALS: PULSE 78; O2SAT 98
[2018-07-10 02:47] VITALS: BP 118/61; TEMP 98.2
== END 2018-07-10 02:47 | disposition home or self-care (01) ==
LOC: ED 19:54
DX: M79.662 Pain in left lower leg (principal); M79.89 Other specified soft tissue disorders; Z86.718 Personal history of other venous thrombosis and embolism; Z79.01 Long term (current) use of anticoagulants; Z96.642 Presence of left artificial hip joint
CPT/HCPCS: 80053; 85025; 85610; 85730; 93970; 96372; 96374; 99285; J1650; J2270

== ENCOUNTER 2018-07-10 21:00 | Emergency (ER) | payer MEDICAID ==
[2018-07-10 21:01] VITALS: BMI 27.2
[2018-07-10 21:20] VITALS: RESP 18
[2018-07-10 21:55] LABS: BASO # 0.03 K/mm3 (0.0-2.0); BASO % 0.4 % (0.0-3.0); EOS # 0.2 (0.0-0.7); EOS % 2.4 % (1.5-5.0); GRAN # 3.67 (1.4-6.5); GRAN % 49.3 % (50.0-68.0); HEMOGLOBIN 11.8 g/dL (14.0-18.0); LYMPH % 40.7 % (22.0-35.0); MEAN CELL VOLUME 73.4 fl (80.0-105.0); MEAN CORPUSCULAR HEMOGLOBIN 23.7 pg (25.0-35.0); MEAN CORPUSCULAR HGB CONC 32.3 g/dl (31.0-37.0); MEAN PLATELET VOLUME 10.6 fl (7.0-11.0); MONO # 0.5 (0.1-0.6); MONO % 7.2 % (1.0-6.0); RBC 4.97 10^6/uL (3.5-6.1); RED CELL DISTRIBUTION WIDTH 15.3 % (11.5-14.5); WHITE BLOOD COUNT 7.5 10^3/uL (4.5-11.0)
--- NOTE | 2018-07-10 22:11 | ED PDOC ---
Arrival/HPI - General Historian: Patient - History of Present Illness Narrative History of Present Illness (Text): 07/10/18 22:07 62yo male with pmhx of DVT who present to ED alleging that his PMD recommended that he go to ED because he might be dehydrated. He denies any somatic complaint. <Chago Estes A - Last Filed: 07/11/18 01:05> <Adriel Huerta - Last Filed: 07/12/18 11:31> - General Chief Complaint: Medical Clearance Past Medical History - Provider Review Nursing Documentation Reviewed: Yes - Infectious Disease Hx of Infectious Diseases: None - Tetanus Immunization Tetanus Immunization: Unknown - Cardiac Hx Cardiac Disorders: Yes - Pulmonary Hx Respiratory Disorders: Yes Hx Pneumonia: Yes - Neurological Hx Neurological Disorder: No - HEENT Hx HEENT Disorder: No - Renal Hx Renal Disorder: No - Endocrine/Metabolic Hx Endocrine Disorders: No - Hematological/Oncological Hx Blood Disorders: No - Integumentary Hx Dermatological Disorder: No - Musculoskeletal/Rheumatological Hx Musculoskeletal Disorders: Yes Other/Comment: Falls, L hip r/p, spine sx, h/o clot on left leg - Gastrointestinal Hx Gastrointestinal Disorders: Yes Hx Nausea: Yes Hx Vomiting: Yes - Genitourinary/Gynecological Hx Genitourinary Disorders: Yes (HX SCROTAL INFECTION) Hx Prostate Problems: Yes - Psychiatric Hx Psychophysiologic Disorder: No Hx Depression: No Hx Substance Use: No - Surgical History Hx Orthopedic Surgery: Yes (spine sx 3-4 years ago) Other/Comment: L hip r/p - Anesthesia Hx Anesthesia: Yes Hx Anesthesia Reactions: Yes Hx Malignant Hyperthermia: No - Suicidal Assessment Feels Threatened In Home Enviroment: No <Chago Estes A - Last Filed: 07/11/18 01:05> Family/Social History - Physician Review Nursing Documentation Reviewed: Yes Family/Social History: Unknown Family HX Smoking Status: Never Smoked Hx Alcohol Use: No Hx Substance Use: No Hx Substance Use Treatment: No <Chago Estes A - Last Filed: 07/11/18 01:05> Allergies/Home Meds <Chago Estes A - Last Filed: 07/11/18 01:05> <Adriel Huerta - Last Filed: 07/12/18 11:31> Allergies/Adverse Reactions: Allergies No Known Allergies Allergy (Verified 11/21/18 21:19) Home Medications: Home Meds Medication Instructions Recorded Confirmed RX: Atorvastatin [Lipitor] 10 mg PO HS 09/30/16 04/14/18 RX: Tamsulosin [Flomax] 0.4 mg PO DAILY 09/30/16 04/14/18 Review of Systems - Physician Review All systems were reviewed & negative as marked: Yes - Review of Systems Constitutional: Normal, Other (Possible dehydration) Eyes: Normal ENT: Normal Respiratory: Normal Cardiovascular: Normal Gastrointestinal: Normal Genitourinary Male: Normal Musculoskeletal: Normal Skin: Normal Neurological: Normal Endocrine: Normal Hemo/Lymphatic: Normal Psychiatric: Normal <Diru,Happiness A - Last Filed: 07/11/18 01:05> Physical Exam Vital Signs Reviewed: Yes Vital Signs Temp Pulse Resp BP Pulse Ox 07/10/18 21:19 98.4 F 102 H 18 130/85 97 07/10/18 21:18 18 130/85 Temperature: Afebrile Blood Pressure: Normal Pulse: Regular Respiratory Rate: Normal Appearance: Positive for: Well-Appearing, Non-Toxic, Comfortable Pain Distress: None Mental Status: Positive for: Alert and Oriented X 3 - Systems Exam Head: Present: Atraumatic, Normocephalic Pupils: Present: PERRL Extroacular Muscles: Present: EOMI Conjunctiva: Present: Normal Mouth: Present: Moist Mucous Membranes Neck: Present: Normal Range of Motion Respiratory/Chest: Present: Clear to Auscultation, Good Air Exchange. No: Respiratory Distress, Accessory Muscle Use Cardiovascular: Present: Regular Rate and Rhythm, Normal S1, S2. No: Murmurs Abdomen: No: Tenderness, Distention, Peritoneal Signs Back: Present: Normal Inspection Upper Extremity: Present: Normal Inspection. No: Cyanosis, Edema Lower Extremity: Present: Normal Inspection. No: Edema Neurological: Present: GCS=15, CN II-XII Intact, Speech Normal Skin: Present: Warm, Dry, Normal Color. No: Rashes Psychiatric: Present: Alert, Oriented x 3, Normal Insight, Normal Concentration <Diru,Happiness A - Last Filed: 07/11/18 01:05> Vital Signs Temp Pulse Resp BP Pulse Ox 07/10/18 22:56 98.2 F 60 18 124/64 98 07/10/18 22:46 60 18 124/64 98 07/10/18 21:19 98.4 F 102 H 18 130/85 97 07/10/18 21:18 18 130/85 <Adriel Huerta - Last Filed: 07/12/18 11:31> Medical Decision Making ED Course and Treatment: 07/11/18 01:05 PT present to ED for stated history. He was not in any distress. Lab was ordered and reviewed. He was hypokalemic and it was repleted. They was however no indication of dehydration in the lab Result was DW the pt and he was referred to his PMD. - Lab Interpretations Lab Results: 07/10/18 21:42 Lab Results 07/10/18 21:42: WBC 7.5, RBC 4.97, Hgb 11.8 L, Hct 36.5 L, MCV 73.4 L, MCH 23.7 L, MCHC 32.3, RDW 15.3 H, Plt Count 182, MPV 10.6, Gran % 49.3 L, Lymph % (Auto) 40.7 H, [place] % (Auto) 7.2 H, Eos % (Auto) 2.4, Baso % (Auto) 0.4, Gran # 3.67, Lymph # (Auto) 3.0, [place] # (Auto) 0.5, Eos # (Auto) 0.2, Baso # (Auto) 0.03 <Chago Estes - Last Filed: 07/11/18 01:05> - Lab Interpretations Lab Results: 07/10/18 21:42 07/10/18 21:42 Lab Results 07/10/18 21:42: Sodium 139, Potassium 3.0 L, Chloride 105, Carbon Dioxide 27, Anion Gap 10, BUN 15, Creatinine 1.0, Est GFR ( Amer) > 60, Est GFR (Non- Af Amer) > 60, Random Glucose 129 H, Calcium 9.2, Total Bilirubin 0.5, AST 27, ALT 31, Alkaline Phosphatase 82, Total Protein 7.8, Albumin 4.1, Globulin 3.7, Albumin/Globulin Ratio 1.1 07/10/18 21:42: WBC 7.5, RBC 4.97, Hgb 11.8 L, Hct 36.5 L, MCV 73.4 L, MCH 23.7 L, MCHC 32.3, RDW 15.3 H, Plt Count 182, MPV 10.6, Gran % 49.3 L, Lymph % (Auto) 40.7 H, [place] % (Auto) 7.2 H, Eos % (Auto) 2.4, Baso % (Auto) 0.4, Gran # 3.67, Lymph # (Auto) 3.0, [place] # (Auto) 0.5, Eos # (Auto) 0.2, Baso # (Auto) 0.03 - Medication Orders Current Medication Orders: Discontinued Medications Potassium Chloride (K-Dur 20 Meq Er Tab) 40 meq PO STAT STA Stop: 07/10/18 22:17 Last Admin: 07/10/18 22:26 Dose: 40 meq <Adriel Huerta - Last Filed: 07/12/18 11:31> - PA / FORMING FIXER / Resident Statement / has reviewed & agrees with the documentation as recorded. <Adriel Huerta - Last Filed: 07/12/18 11:31> Disposition/Present on Arrival - Present on Arrival Any Indicators Present on Arrival: No History of DVT/PE: Yes History of Uncontrolled Diabetes: No Urinary Catheter: No History of Decub. Ulcer: No History Surgical Site Infection Following: None - Disposition Have Diagnosis and Disposition been Completed?: Yes Disposition Time: 22:25 Patient Plan: Discharge <Chago Estes - Last Filed: 07/11/18 01:05> <Adriel Huerta - Last Filed: 07/12/18 11:31> - Disposition Diagnosis: Hypokalemia Disposition: HOME/ ROUTINE Condition: STABLE Discharge Instructions (ExitCare): Hypokalemia (DC) Additional Instructions: Follow up with your Doctor Return to ED for any new or worsening symptoms Referrals: Liz Brown MD [Medical Doctor] - Follow up with primary Forms: [email or web address] (Tongan)
[2018-07-10 22:13] LABS: ALB/GLOB RATIO 1.1 (1.1-1.8); ALBUMIN 4.1 g/dL (3.0-4.8); ALT/SGPT 31 U/L (7-56); AST/SGOT 27 U/L (17-59); BLOOD UREA NITROGEN 15 mg/dL (7-21); CALCIUM 9.2 mg/dL (8.4-10.5); GFR NON-AFRICAN AMERICAN > 60
[2018-07-10] MEDS ORDERED: Potassium Chloride 20 mEq ER Tab PO STA (22:16)
[2018-07-10 22:47] VITALS: BP 124/64; PULSE 60; O2SAT 98
[2018-07-10 22:58] VITALS: TEMP 98.2
== END 2018-07-10 22:58 | disposition home or self-care (01) ==
LOC: ED 21:00
DX: E87.6 Hypokalemia (principal); Z86.718 Personal history of other venous thrombosis and embolism

== ENCOUNTER 2018-11-16 21:27 | Observation (INO) | payer MEDICAID ==
[2018-11-16 21:58] VITALS: BMI 23.1
--- NOTE | 2018-11-17 00:14 | ED PDOC ---
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 Pt was getting into the shower and leaning on a sink, when it fell out of the wall, causing him to fall onto his left hip. Pt denies head strike or LOC but is taking blood thinner, Xarelto. 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 Pt is unable to ambulate. Hip prosthesis was placed 2 years ago by an orthopedic surgeon from [facility] that is now retired. Pt has no orthopedic followup. Denies fever, chills, numbness, paresthesias, weakness, knee pain, ankle pain, back pain, neck pain, headache, vision changes, dizziness, or any other associated symptoms. Past Medical History - Provider Review Nursing Documentation Reviewed: Yes - Infectious Disease Hx of Infectious Diseases: None - Tetanus Immunization Tetanus Immunization: Unknown - Cardiac Hx Cardiac Disorders: Yes - Pulmonary Hx Respiratory Disorders: Yes Hx Pneumonia: Yes - Neurological Hx Neurological Disorder: No - HEENT Hx HEENT Disorder: No - Renal Hx Renal Disorder: No - Endocrine/Metabolic Hx Endocrine Disorders: No - Hematological/Oncological Hx Blood Disorders: No - Integumentary Hx Dermatological Disorder: No - Musculoskeletal/Rheumatological Hx Musculoskeletal Disorders: Yes Hx Falls: Yes Other/Comment: Falls, L hip r/p, spine sx, h/o clot on left leg - Gastrointestinal Hx Gastrointestinal Disorders: Yes Hx Nausea: Yes Hx Vomiting: Yes - Genitourinary/Gynecological Hx Genitourinary Disorders: Yes (HX SCROTAL INFECTION) Hx Prostate Problems: Yes - Psychiatric Hx Psychophysiologic Disorder: No Hx Depression: No Hx Substance Use: No - Surgical History Hx Orthopedic Surgery: Yes (spine sx 3-4 years ago) Other/Comment: L hip r/p - Anesthesia Hx Anesthesia: Yes Hx Anesthesia Reactions: Yes Hx Malignant Hyperthermia: No - Suicidal Assessment Feels Threatened In Home Enviroment: No Family/Social History - Physician Review Nursing Documentation Reviewed: Yes Family/Social History: No Known Family HX Smoking Status: Never Smoked Hx Alcohol Use: No Hx Substance Use: No Hx Substance Use Treatment: No Allergies/Home Meds Allergies/Adverse Reactions: Allergies No Known Allergies Allergy (Verified 11/16/18 21:35) Home Medications: Home Meds Medication Instructions Recorded Confirmed Atorvastatin [Lipitor] 10 mg PO HS 09/30/16 04/14/18 Tamsulosin [Flomax] 0.4 mg PO DAILY 09/30/16 04/14/18 Review of Systems - Review of Systems Constitutional: Normal. absent: Fevers Eyes: Normal. absent: Vision Changes Respiratory: Normal. absent: SOB, Cough Cardiovascular: Normal. absent: Chest Pain, Palpitations Gastrointestinal: Normal. absent: Abdominal Pain, Nausea, Vomiting Genitourinary Male: Normal. absent: Dysuria, Frequency Musculoskeletal: Other (left hip and leg pain). absent: Back Pain, Neck Pain Skin: Normal. absent: Rash, Skin Lesions, Laceration Neurological: Normal. absent: Headache, Dizziness Physical Exam Vital Signs Reviewed: Yes Vital Signs Temp Pulse Resp BP Pulse Ox 11/16/18 21:35 98.5 F 77 20 124/80 100 Temperature: Afebrile Blood Pressure: Normal Pulse: Regular Respiratory Rate: Normal Appearance: Positive for: Well-Appearing, Non-Toxic, Comfortable Pain Distress: None Mental Status: Positive for: Alert and Oriented X 3 - Systems Exam Head: Present: Atraumatic, Normocephalic Pupils: Present: PERRL Extroacular Muscles: Present: EOMI Conjunctiva: Present: Normal Mouth: Present: Moist Mucous Membranes Neck: Present: Normal Range of Motion. No: Meningeal Signs, MIDLINE TENDERNESS, Paraspinal Tenderness Respiratory/Chest: Present: Clear to Auscultation, Good Air Exchange. No: Respiratory Distress, Accessory Muscle Use Cardiovascular: Present: Regular Rate and Rhythm, Normal S1, S2. No: Murmurs Abdomen: No: Tenderness, Distention, Peritoneal Signs Back: Present: Normal Inspection. No: Midline Tenderness Upper Extremity: Present: Normal Inspection, Normal ROM, NORMAL PULSES, Abigail rovascularly Intact, Capillary Refill < 2s. No: Cyanosis, Edema, Temperature Abnormalties Lower Extremity: Present: NORMAL PULSES, Tenderness (over lateral left hip), Neurovascularly Intact, Capillary Refill < 2 s. No: Edema, Normal ROM (decreased ROM at left hip), Swelling, Deformity, Temperature Abnormalties Neurological: Present: GCS=15, CN II-XII Intact, Speech Normal, Motor Func Grossly Intact, Normal Sensory Function, Gait Normal Skin: Present: Warm, Dry, Normal Color. No: Rashes Psychiatric: Present: Alert, Oriented x 3, Normal Insight, Normal Concentration, Normal Affect, Normal Mood Medical Decision Making ED Course and Treatment: Initial Plan: * Head CT * Cervical Spine CT * Left Hip CT * Tylenol * Morphine 00:[address] negative for acute pathology. Hip CT significant for prosthesis loosening. Will admit for orthopedic evaluation secondary to inability to ambulate. Admission labs ordered. 01:01 Spoke with medical coding technician and hospitalist Dr. Cornejo, who accepted patient on to med/surg floor with diagnosis of hardware malfunction and inability to ambulate. Pt updated on change of disposition. Pt resting in stretcher with stable vitals at this time. - Lab Interpretations Lab Results: 11/17/18 00:10 11/17/18 00:10 Lab Results 11/17/18 00:10: PT 22.1 H, INR 1.99, APTT 64.8 H 11/17/18 00:10: Sodium 143, Potassium 3.2 L, Chloride 103, Carbon Dioxide 32, Anion Gap 10, BUN 8, Creatinine 0.8, Est GFR ( Amer) > 60, Est GFR (Non- Af Amer) > 60, Random Glucose 82, Calcium 9.2, Total Bilirubin 0.3, AST 22, ALT 18, Alkaline Phosphatase 89, Total Protein 7.7, Albumin 3.8, Globulin 3.8, Albumin/Globulin Ratio 1.0 L 11/17/18 00:10: WBC 4.7 D, RBC 4.79, Hgb 11.5 L, Hct 35.7 L, MCV 74.5 L, MCH 24.0 L, MCHC 32.2, RDW 15.3 H, Plt Count 190, MPV 11.4 H, Neut % (Auto) 37.7 L, Lymph % (Auto) 49.9 H, Webster % (Auto) 7.3 H, Eos % (Auto) 4.7, Baso % (Auto) 0.4, Lymph # (Auto) 2.3, Webster # (Auto) 0.3, Eos # (Auto) 0.2, Baso # (Auto) 0.02, Absolute Neuts (auto) 1.75 I have reviewed the lab results: Yes - RAD Interpretation Narrative RAD Interpretations (Text): 11/17/18 00:[address]: FINDINGS: BONES: No acute fracture or aggressive appearing osseous lesion. JOINTS: No dislocation. A total left hip prosthesis is present. A zone of holland- prosthetic acetabular radiolucency is noted which could perhaps be indicative of prosthetic loosening. Comparison to prior examinations would be helpful. There is no evidence of complicating process involving the left femoral prosthetic stem. SOFT TISSUES: The soft tissues are unremarkable. IMPRESSION: 1. No acute osseous abnormality. 2. A total left hip prosthesis is present. 3. Apparent zone of holland-prosthetic radiolucency about the acetabular prosthetic component. This could indicate some prosthetic loosening. Comparison to prior examinations would be helpful in making this determination. Electronically signed on Nov 16, 2018 11:42:21 PM EDT by: Dustin Sanchez M.D., MALLORY Certified By ABR & CBCCT Fellowship Trained MRI and CT Specialist Cervical Spine CT: FINDINGS: ALIGNMENT: There is straightening of the cervical spine subsequent to the surgical fusion. DEGENERATIVE CHANGES: No significant canal stenosis or neural foraminal narrowing evident. SOFT TISSUES: The prevertebral soft tissues are within normal limits. BONES: No acute fracture or aggressive appearing osseous lesion. There has been prior anterior surgical fusion of C3-C4-C5. Bilateral laminectomy defects are seen at C3-C7. Additionally, there has been previous surgical fusion of the C3-C7 vertebrae utilizing bilateral pedicle screws. 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 IMPRESSION: 1. No acute cervical spine abnormality. 2. Postsurgical changes as described above. 3. 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 Electronically signed on Nov 16, 2018 11:42:14 PM EDT by: Dustin Sanchez M.D., MALLORY Certified By ABR & CBCCT Fellowship Trained MRI and CT Specialist Head CT: FINDINGS: BRAIN There is mild periventricular, deep and subcortical white matter hypodensity bilaterally compatible with mild microangiopathy. No midline shift or mass effect. No evidence for acute intracranial hemorrhage. VENTRICLES: There is mild to moderate prominence of ventricles and sulci compatible with mild to moderate atrophy. ORBITS: The orbits are unremarkable. SINUSES AND MASTOIDS: The paranasal sinuses and mastoid air cells are clear. BONES: No evidence for displaced calvarial fracture. SOFT TISSUES: Unremarkable. MISCELLANEOUS: There is a large arachnoid cyst at the anterior left temporal fossa. No evidence for acute territorial infarction. There is some motion and beam hardening artifact near the skull base which slightly limits evaluation. IMPRESSION: 1. There is a large arachnoid cyst at the anterior left temporal fossa. 2. There is mild to moderate prominence of ventricles and sulci compatible with mild to moderate atrophy. 3. There is mild periventricular, deep and subcortical white matter hypodensity bilaterally compatible with mild microangiopathy. 4. No evidence for acute territorial infarction. 5. No midline shift or mass effect. 6. There is some motion and beam hardening artifact near the skull base which slightly limits evaluation. 7. No evidence for acute intracranial hemorrhage. 8. No evidence for displaced calvarial fracture. Electronically signed on Nov 16, 2018 11:41:47 PM EDT by: Dustin Sanchez M.D., MALLORY Certified By ABR & CBCCT Fellowship Trained MRI and CT Specialist Radiology Orders: 11/16/18 21:48 CERVICAL SPINE W/O CONTRAST [CT] Stat HEAD W/O CONTRAST [CT] Stat 11/16/18 21:49 HIP WITHOUT CONTRAST LEFT [CT] Stat TIBIA FIBULA LEFT [RAD] Stat Jewel Sorter: Radiologist - EKG Interpretation EKG Interpretation (Text): 11/17/18 00:53 Rate 57; NSR; Normal Intervals; No STEMI, nonspecific ST/T wave changes Interpreted by ED Physician: Yes Type: 12 lead EKG - Medication Orders Current Medication Orders: Discontinued Medications Acetaminophen (Tylenol 325mg Tab) 975 mg PO STAT STA Stop: 11/16/18 21:50 Last Admin: 11/16/18 22:34 Dose: 975 mg [facility] [place] Pain/Vitals Document 11/16/18 22:34 VV (Rec: 11/16/18 22:36 VV [id number]) Pain Reassessment Is This A Pain ReAssessment? No Sleep Is patient sleeping during reassessment? No Presence of Pain Presence of Pain Yes Pain Scale Used Protocol: PSCALES Pain Scale Used Numeric Location Left, Right or Bilateral Left Pain Location Body Site Hip Description Constant Intensity 10 Scale Used Numeric Disposition/Present on Arrival - Present on Arrival Any Indicators Present on Arrival: No History of DVT/PE: Yes History of Uncontrolled Diabetes: No Urinary Catheter: No History of Decub. Ulcer: No History Surgical Site Infection Following: None - Disposition Have Diagnosis and Disposition been Completed?: Yes Diagnosis: Hardware failure, Inability to ambulate due to hip Disposition: HOSPITALIZED Disposition Time: 01:10 Patient Plan: Admission Condition: STABLE
[2018-11-17] MEDS ORDERED: Morphine 2 mg/ml ISec IVP STA ×2 (00:15→07:25)
[2018-11-17 00:33] LABS: BASO # 0.02 K/mm3 (0.0-2.0); BASO % 0.4 % (0.0-3.0); EOS # 0.2 (0.0-0.7); EOS % 4.7 % (1.5-5.0); HEMOGLOBIN 11.5 g/dL (14.0-18.0); LYMPH # 2.3 (1.2-3.4); LYMPH % 49.9 % (22.0-35.0); MEAN CELL VOLUME 74.5 fl (80.0-105.0); MEAN CORPUSCULAR HGB CONC 32.2 g/dl (31.0-37.0); MEAN PLATELET VOLUME 11.4 fl (7.0-11.0); MONO # 0.3 (0.1-0.6); MONO % 7.3 % (1.0-6.0); RBC 4.79 10^6/uL (3.5-6.1); RED CELL DISTRIBUTION WIDTH 15.3 % (11.5-14.5); WHITE BLOOD COUNT 4.7 10^3/uL (4.5-11.0)
[2018-11-17 00:54] LABS: INR 1.99; PARTIAL THROMBOPLASTIN TIME 64.8 Seconds (26.9-38.3); PROTHROMBIN TIME 22.1 SECONDS (9.4-12.5)
[2018-11-17 01:00] LABS: ALBUMIN 3.8 g/dL (3.0-4.8); ALT/SGPT 18 U/L (7-56); AST/SGOT 22 U/L (17-59); BLOOD UREA NITROGEN 8 mg/dL (7-21); CALCIUM 9.2 mg/dL (8.4-10.5); GFR NON-AFRICAN AMERICAN > 60
[2018-11-17] MEDS ORDERED: Potassium Chloride 20 mEq ER Tab PO STA (01:08)
--- NOTE | 2018-11-17 01:10 | CP.PCM.HP ---
<Cm Pride - Last Filed: 11/17/18 01:34> History of Present Illness - History of Present Illness History of Present Illness: Dr Pride [facility] Hospitalist Service 63M PMHx of DVT, BPH, iron deficiency anemia, presents to the ED with 10/10 L hip pain. Pt says this evening he was in the bathroom leaning on his sink, the sink then broke off the wall, causing him to fall down. He immediately felt intense pressure like non radiating pain in the left hip. He denies any syncope, head trauma, dizziness, vertigo or inciting events. Pt attributes the fall to the accident with his sink. Pt had a hip replacement done on this hip 2 years ago and is concerned that damage has been done to the hardware. Pt did not take any medications at home when the pain started. Pt denies any loss of sensation, discoloration, bruising, sensation of skin tightness, back pain, loss of bowel/bladder control. Pt says his Orthopaedic Surgeon is currently in [facility] and unavailable. ROS pos: L hip pain, fall, on blood thinners, hip replacement sx on L hip neg: CP, SOB, FC, NV, syncope, dizziness, vertigo, head trauma, bruising, bleeding, loss of sensation, loss of bowel/bladder control PMH: DVT, BPH, iron deficiency anemia, c.diff PSH: back and spine surgery, L hip replacement All: NKDA SH: Denies tobacco, EtOH, or drug use FH: Dad- from [place] at 63yo, Mom- possible pacreatic cancer at 78 Present on Admission - Present on Admission Any Indicators Present on Admission: Yes History of DVT/PE: Yes Review of Systems - Review of Systems All systems: reviewed and no additional remarkable complaints except (as per HPI) Past Patient History - Infectious Disease Hx of Infectious Diseases: None - Tetanus Immunizations Tetanus Immunization: Unknown - Past Medical History & Family History Past Medical History?: Yes - Past Social History Smoking Status: Never Smoked - CARDIAC Hx Cardiac Disorders: Yes - PULMONARY Hx Respiratory Disorders: Yes Hx Pneumonia: Yes - NEUROLOGICAL Hx Neurological Disorder: No - HEENT Hx HEENT Problems: No - RENAL Hx Chronic Kidney Disease: No - ENDOCRINE/METABOLIC Hx Endocrine Disorders: No - HEMATOLOGICAL/ONCOLOGICAL Hx Blood Disorders: No - INTEGUMENTARY Hx Dermatological Problems: No - MUSCULOSKELETAL/RHEUMATOLOGICAL Hx Musculoskeletal Disorders: Yes Hx Falls: Yes Other/Comment: Falls, L hip r/p, spine sx, h/o clot on left leg - GASTROINTESTINAL Hx Gastrointestinal Disorders: Yes Hx Nausea: Yes Hx Vomiting: Yes - GENITOURINARY/GYNECOLOGICAL Hx Genitourinary Disorders: Yes (HX SCROTAL INFECTION) Hx Prostate Problems: Yes - PSYCHIATRIC Hx Psychophysiologic Disorder: No Hx Depression: No Hx Substance Use: No - SURGICAL HISTORY Hx Orthopedic Surgery: Yes (spine sx 3-4 years ago) Other/Comment: L hip r/p - ANESTHESIA Hx Anesthesia: Yes Hx Anesthesia Reactions: Yes Hx Malignant Hyperthermia: No Meds Allergies/Adverse Reactions: Allergies Allergy/AdvReac Type Severity Reaction Status Date / Time No Known Allergies Allergy Verified 11/16/18 21:35 Physical Exam - Constitutional Appears: In Acute Distress - Head Exam Head Exam: ATRAUMATIC, NORMAL INSPECTION - Eye Exam Eye Exam: EOMI, Normal appearance, PERRL Pupil Exam: NORMAL ACCOMODATION - ENT Exam ENT Exam: Mucous Membranes Moist, Normal Exam - Respiratory Exam Respiratory Exam: Clear to Auscultation Bilateral, NORMAL BREATHING PATTERN. absent: Wheezes - Cardiovascular Exam Cardiovascular Exam: RRR, +S1, +S2 - GI/Abdominal Exam GI & Abdominal Exam: Soft. absent: Rebound, Tenderness - Extremities Exam Extremities exam: Positive for: tenderness, pedal pulses present. Negative for: full ROM (L hip limited in passive flex/ext/abd/add/int rot/ext rot. Pain out of proportion upon light palpation of skin surface. nonerythematous, non ecchymotic, pt was actively flexing at hip when positioning himself- inconsitent with Imaging results ), joint swelling - Neurological Exam Neurological exam: Alert, CN II-XII Intact, Oriented x3 - Psychiatric Exam Psychiatric exam: Anxious - Skin Skin Exam: Dry, Normal Color Results - Vital Signs Recent Vital Signs: Last Vital Signs Temp 98.5 F 11/16/18 21:35 Pulse 77 11/16/18 21:35 Resp 20 11/16/18 21:35 BP 124/80 11/16/18 21:35 Pulse Ox 100 11/16/18 21:35 - Labs Result Diagrams: 11/17/18 00:10 11/17/18 00:10 Labs: Laboratory Results - last 24 hr 11/17/18 11/17/18 11/17/18 00:10 00:10 00:10 WBC 4.7 D RBC 4.79 Hgb 11.5 L Hct 35.7 L MCV 74.5 L MCH 24.0 L MCHC 32.2 RDW 15.3 H Plt Count 190 MPV 11.4 H Neut % (Auto) 37.7 L Lymph % (Auto) 49.9 H Hardin % (Auto) 7.3 H Eos % (Auto) 4.7 Baso % (Auto) 0.4 Lymph # (Auto) 2.3 Hardin # (Auto) 0.3 Eos # (Auto) 0.2 Baso # (Auto) 0.02 Absolute Neuts (auto) 1.75 PT 22.1 H INR 1.99 APTT 64.8 H Sodium 143 Potassium 3.2 L Chloride 103 Carbon Dioxide 32 Anion Gap 10 BUN 8 Creatinine 0.8 Est GFR ( Amer) > 60 Est GFR (Non-Af Amer) > 60 Random Glucose 82 Calcium 9.2 Total Bilirubin 0.3 AST 22 ALT 18 Alkaline Phosphatase 89 Total Protein 7.7 Albumin 3.8 Globulin 3.8 Albumin/Globulin Ratio 1.0 L Assessment & Plan - Assessment and Plan (Free Text) Assessment: 63 with pmhx as stated above admitted for intractable hip pain and fall risk Plan: L Hip Pain -CT LLE: -Percocet 5/325 q6 prn -toradol 30 ivp -consider ortho consult for possible loosening of hardware -fall risk protocol Hyperlipidemia - c/w lipitor BPH - c/w Flomax Hx of DVT -Heparin 5000u q8 PPx Liquid Diet Heparin CK PGY1 <Albertina Cornejo - Last Filed: 11/17/18 03:54> Results - Vital Signs Recent Vital Signs: Last Vital Signs Temp 98.5 F 11/16/18 21:35 Pulse 77 11/16/18 21:35 Resp 20 11/16/18 21:35 BP 124/80 11/16/18 21:35 Pulse Ox 100 11/16/18 21:35 - Labs Result Diagrams: 11/17/18 00:10 11/17/18 00:10 Labs: Laboratory Results - last 24 hr 11/17/18 11/17/18 11/17/18 00:10 00:10 00:10 WBC 4.7 D RBC 4.79 Hgb 11.5 L Hct 35.7 L MCV 74.5 L MCH 24.0 L MCHC 32.2 RDW 15.3 H Plt Count 190 MPV 11.4 H Neut % (Auto) 37.7 L Lymph % (Auto) 49.9 H Hardin % (Auto) 7.3 H Eos % (Auto) 4.7 Baso % (Auto) 0.4 Lymph # (Auto) 2.3 Hardin # (Auto) 0.3 Eos # (Auto) 0.2 Baso # (Auto) 0.02 Absolute Neuts (auto) 1.75 PT INR APTT Sodium 143 Potassium 3.2 L Chloride 103 Carbon Dioxide 32 Anion Gap 10 BUN 8 Creatinine 0.8 Est GFR ( Amer) > 60 Est GFR (Non-Af Amer) > 60 Random Glucose 82 Calcium 9.2 Total Bilirubin 0.3 AST 22 ALT 18 Alkaline Phosphatase 89 Total Protein 7.7 Albumin 3.8 Globulin 3.8 Albumin/Globulin Ratio 1.0 L Blood Type B POSITIVE Antibody Screen Negative BBK History Checked No verified bt 11/17/18 00:10 WBC RBC Hgb Hct MCV MCH MCHC RDW Plt Count MPV Neut % (Auto) Lymph % (Auto) Hardin % (Auto) Eos % (Auto) Baso % (Auto) Lymph # (Auto) Hardin # (Auto) Eos # (Auto) Baso # (Auto) Absolute Neuts (auto) PT 22.1 H INR 1.99 APTT 64.8 H Sodium Potassium Chloride Carbon Dioxide Anion Gap BUN Creatinine Est GFR ( Amer) Est GFR (Non-Af Amer) Random Glucose Calcium Total Bilirubin AST ALT Alkaline Phosphatase Total Protein Albumin Globulin Albumin/Globulin Ratio Blood Type Antibody Screen BBK History Checked Attending/Attestation - Attestation I have personally seen and examined this patient.: Yes I have fully participated in the care of the patient.: Yes I have reviewed all pertinent clinical information: Yes Notes (Text): 11/17/18 03:48 Patient was seen when he was in cubicle # 13 in the ER. Medical record was reviewed. Agree with history, physical examination, assessment and plan. 63 year old male states he fell while lifting sink,sustained injury to left hip and is unable to walk because of pain,gives past medical history of DVT,IVC filter placement, BPH, HLD, anemia, C.diff infection, left hip arthroplasty,spinal surger, left ankle fracture, sinus infections, rectal bleeding,52 lb weight loss in 6 months, family history [place] (Father at age 63y), family history of colon cancer (Mother).
[2018-11-17] MEDS: Oxycodone/Acetaminophen 5/325 mg Tab PO PRN ×3 (03:01→19:18)
--- NOTE | 2018-11-17 09:27 | CT ---
Date of service: 11/16/2018 PROCEDURE: CT HEAD WITHOUT CONTRAST. HISTORY: headache COMPARISON: 04/15/2018 TECHNIQUE: Axial computed tomography images were obtained through the head/brain without intravenous contrast. Radiation dose: Total exam DLP = 876.87 mGy-cm. This CT exam was performed using one or more of the following dose reduction techniques: Automated exposure control, adjustment of the mA and/or kV according to patient size, and/or use of iterative reconstruction technique. FINDINGS: HEMORRHAGE: No intracranial hemorrhage. BRAIN: No mass effect or edema. There is an arachnoid cyst in the left middle cranial fossa. Mild atrophy VENTRICLES: Unremarkable. No hydrocephalus. CALVARIUM: Unremarkable. PARANASAL SINUSES: Unremarkable as visualized. No significant inflammatory changes. MASTOID AIR CELLS: Unremarkable as visualized. No inflammatory changes. OTHER FINDINGS: The report concurs with the preliminary [facility] report IMPRESSION: No acute intracranial findings
--- NOTE | 2018-11-17 09:30 | CT ---
Date of service: 11/16/2018 PROCEDURE: CT Cervical Spine without contrast HISTORY: neck pain COMPARISON: 04/15/2018 TECHNIQUE: Axial computed tomography images were obtained of the cervical spine without the use of intravenous contrast. Coronal and sagittal reformatted images were created and reviewed. Radiation dose: Total exam DLP = 589.01 mGy-cm. This CT exam was performed using one or more of the following dose reduction techniques: Automated exposure control, adjustment of the mA and/or kV according to patient size, and/or use of iterative reconstruction technique. FINDINGS: VERTEBRAE: No fracture. Normal alignment. No destructive bony lesion. DISCS/SPINAL CANAL/NEURAL FORAMINA: There has been fusion and laminectomy from C3 through C7. Degenerative changes are seen at C1-2. PARASPINAL SOFT TISSUES: Unremarkable. OTHER FINDINGS: The report concurs with the preliminary [facility] report IMPRESSION: No acute fracture
[2018-11-17] MEDS: Cholecalciferol 1,000 INTLU TAB PO SCH (09:35)
--- NOTE | 2018-11-17 09:36 | CT ---
Date of service: 11/16/2018 PROCEDURE: CT of the left hip HISTORY: fall, left hip pain, unable to ambulate COMPARISON: 04/15/2018 TECHNIQUE: Radiation dose: Total exam DLP = 376 mGy-cm. This CT exam was performed using one or more of the following dose reduction techniques: Automated exposure control, adjustment of the mA and/or kV according to patient size, and/or use of iterative reconstruction technique. FINDINGS: There is a left hip prosthesis. There is no fracture, loosening or dislocation. Alignment is unchanged IMPRESSION: Negative study
--- NOTE | 2018-11-17 10:57 | RAD ---
Date of service: 11/17/2018 HISTORY: admission COMPARISON: 04/15/2018 TECHNIQUE: 1 view obtained. FINDINGS: LUNGS: No active pulmonary disease. PLEURA: No significant pleural effusion identified, no pneumothorax apparent. CARDIOVASCULAR: No aortic atherosclerotic calcification present. Normal cardiac size. No pulmonary vascular congestion. OSSEOUS STRUCTURES: No significant abnormalities. VISUALIZED UPPER ABDOMEN: Normal. OTHER FINDINGS: None. IMPRESSION: No active disease.
--- NOTE | 2018-11-17 12:26 | RAD ---
Date of service: 11/16/2018 PROCEDURE: Radiographs of the left tibia and fibula. HISTORY: fall, leg pain COMPARISON: None available. TECHNIQUE: Frontal and lateral views obtained. 2 views obtained. FINDINGS: BONES: No fracture or destructive lesion. JOINT SPACES: Unremarkable. OTHER FINDINGS: None. IMPRESSION: Unremarkable radiographs of the left tibia and fibula.
--- NOTE | 2018-11-17 17:35 | CARD ---
APPROVED REPORT Date of service: 11/17/2018 EKG Measurement Heart [id number] <Conclusion> Sinus bradycardia Nonspecific T wave abnormality Abnormal ECG
--- NOTE | 2018-11-17 17:36 | CARD ---
APPROVED REPORT Date of service: 11/17/2018 EKG Measurement Heart [id number] <Conclusion> Sinus bradycardia Nonspecific ST abnormality Abnormal ECG
[2018-11-17] MEDS ORDERED: Potassium Chloride 20 mEq ER Tab PO ONE (20:23)
[2018-11-18] MEDS: Oxycodone/Acetaminophen 5/325 mg Tab PO PRN ×3 (04:04→16:45)
[2018-11-18 07:28] LABS: BASO # 0.05 K/mm3 (0.0-2.0); BASO % 1.6 % (0.0-3.0); EOS # 0.2 (0.0-0.7); EOS % 5.8 % (1.5-5.0); HEMOGLOBIN 11.5 g/dL (14.0-18.0); LYMPH # 1.8 (1.2-3.4); LYMPH % 57.4 % (22.0-35.0); MEAN CELL VOLUME 76.1 fl (80.0-105.0); MEAN CORPUSCULAR HEMOGLOBIN 23.5 pg (25.0-35.0); MEAN CORPUSCULAR HGB CONC 30.8 g/dl (31.0-37.0); MEAN PLATELET VOLUME 11.7 fl (7.0-11.0); MONO # 0.2 (0.1-0.6); MONO % 7.7 % (1.0-6.0); RBC 4.9 10^6/uL (3.5-6.1); RED CELL DISTRIBUTION WIDTH 15.5 % (11.5-14.5); WHITE BLOOD COUNT 3.1 10^3/uL (4.5-11.0)
[2018-11-18 08:11] LABS: ALBUMIN 3.3 g/dL (3.0-4.8); ALT/SGPT 16 U/L (7-56); AST/SGOT 20 U/L (17-59); BLOOD UREA NITROGEN 6 mg/dL (7-21); CALCIUM 8.6 mg/dL (8.4-10.5); GFR NON-AFRICAN AMERICAN > 60
[2018-11-18] MEDS: Cholecalciferol 1,000 INTLU TAB PO SCH (09:31)
[2018-11-18 14:58] VITALS: BP 121/82; PULSE 71; RESP 18; TEMP 98.1; O2SAT 99
--- NOTE | 2018-11-18 16:19 | CP.PCM.DIS ---
<Pal,Abran - Last Filed: 11/18/18 16:09> Provider - Provider Date of Admission: 11/17/18 00:59 Attending physician: Vandana Garcia MD Primary care physician: Maira Grimaldo MD Time Spent in preparation of Discharge (in minutes): 35 Hospital Course - Lab Results Lab Results: Most Recent Lab Values WBC 3.1 10^3/uL (4.5-11.0) L D 11/18/18 07:00 RBC 4.90 10^6/uL (3.5-6.1) 11/18/18 07:00 Hgb 11.5 g/dL (14.0-18.0) L 11/18/18 07:00 Hct 37.3 % (42.0-52.0) L 11/18/18 07:00 MCV 76.1 fl (80.0-105.0) L 11/18/18 07:00 MCH 23.5 pg (25.0-35.0) L 11/18/18 07:00 MCHC 30.8 g/dl (31.0-37.0) L 11/18/18 07:00 RDW 15.5 % (11.5-14.5) H 11/18/18 07:00 Plt Count 211 10^3/uL (120.0-450.0) 11/18/18 07:00 MPV 11.7 fl (7.0-11.0) H 11/18/18 07:00 Neut % (Auto) 27.5 % (50.0-68.0) L 11/18/18 07:00 Lymph % (Auto) 57.4 % (22.0-35.0) H 11/18/18 07:00 Ashe % (Auto) 7.7 % (1.0-6.0) H 11/18/18 07:00 Eos % (Auto) 5.8 % (1.5-5.0) H 11/18/18 07:00 Baso % (Auto) 1.6 % (0.0-3.0) 11/18/18 07:00 Lymph # (Auto) 1.8 (1.2-3.4) 11/18/18 07:00 Ashe # (Auto) 0.2 (0.1-0.6) 11/18/18 07:00 Eos # (Auto) 0.2 (0.0-0.7) 11/18/18 07:00 Baso # (Auto) 0.05 K/mm3 (0.0-2.0) 11/18/18 07:00 Absolute Neuts (auto) 0.85 (1.4-6.5) L 11/18/18 07:00 PT 22.1 SECONDS (9.4-12.5) H 11/17/18 00:10 INR 1.99 11/17/18 00:10 APTT 64.8 Seconds (26.9-38.3) H 11/17/18 00:10 Sodium 141 mmol/L (132-148) 11/18/18 07:00 Potassium 4.0 mmol/L (3.6-5.0) 11/18/18 07:00 Chloride 105 mmol/L (98-107) 11/18/18 07:00 Carbon Dioxide 34 mmol/L (21-33) H 11/18/18 07:00 Anion Gap 6 (10-20) L 11/18/18 07:00 BUN 6 mg/dL (7-21) L 11/18/18 07:00 Creatinine 0.8 mg/dl (0.8-1.5) 11/18/18 07:00 Est GFR ( Amer) > 60 11/18/18 07:00 Est GFR (Non-Af Amer) > 60 11/18/18 07:00 Random Glucose 74 mg/dL (70-110) 11/18/18 07:00 Calcium 8.6 mg/dL (8.4-10.5) 11/18/18 07:00 Total Bilirubin 0.3 mg/dL (0.2-1.3) 11/18/18 07:00 AST 20 U/L (17-59) 11/18/18 07:00 ALT 16 U/L (7-56) 11/18/18 07:00 Alkaline Phosphatase 66 U/L (38-126) 11/18/18 07:00 Troponin I < 0.01 ng/mL 11/17/18 07:15 Total Protein 6.6 g/dL (5.8-8.3) 11/18/18 07:00 Albumin 3.3 g/dL (3.0-4.8) 11/18/18 07:00 Globulin 3.4 gm/dL 11/18/18 07:00 Albumin/Globulin Ratio 1.0 (1.1-1.8) L 11/18/18 07:00 Blood Type B POSITIVE 11/17/18 00:10 Blood Type Confirm B POSITIVE 11/17/18 07:00 Antibody Screen Negative 11/17/18 00:10 BBK History Checked No verified bt 11/17/18 00:10 - Hospital Course Hospital Course: Abran Batres, PGY1 Discharge Summary for Dr. Garcia Patient is a 63M PMHx of DVT 2/2 ankle surgery years ago (currently on xarelto), Left-Hip replacement (2017), BPH, iron deficiency anemia, who presented to the ED with 10/10 Left hip pain. He said he was leaning on the sink in his bathroom, the sink broke off the wall, and he fell down. Patient admitted for mechanical fall. Patient was concerned about damage to his left hip replacement that was done 2 years ago. Denied any syncope, head trauma, dizziness, vertigo or inciting events. Imaging tests were ordered. Left Tib/Fib XR was unremarkable. CT Left Hip was negative - no fractures or dislocation. Head CT and C-Spine CT was negative for acute bleed. Given that imaging findings showed no acute changes or malfunction of hardware of left hip, ortho did not need to be consulted. Patient was also resumed on his home med xarelto given that he has no bleeding. Patient evaluated by PT. He has a walker that he utilizes everyday. PT eval recommended patient get outpatient physical therapy, otherwise, he is cleared for discharge. Reviewing all labs, vitals, and imaging, patient is stable for discharge to home. He will resume his home medications as usual. He will also follow up with his PMD and [facility] (Dr. Dumas) regularly. Discharge Exam - Head Exam Head Exam: ATRAUMATIC, NORMAL INSPECTION - Eye Exam Eye Exam: EOMI, Normal appearance Pupil Exam: NORMAL ACCOMODATION - ENT Exam ENT Exam: Mucous Membranes Moist - Respiratory Exam Respiratory Exam: Clear to PA & Lateral, NORMAL BREATHING PATTERN. absent: Accessory Muscle Use, Chest Wall Tenderness, Rales, Rhonchi, Wheezes, Respiratory Distress - Cardiovascular Exam Cardiovascular Exam: RRR, +S1, +S2 - GI/Abdominal Exam GI & Abdominal Exam: Normal Bowel Sounds. absent: Firm, Guarding, Rebound, Rigid - Extremities Exam Extremities exam: normal capillary refill, normal inspection, pedal pulses present Additional comments: Left hip - mild bruising. Mild-mod pain to palpation. No hematoma. No signs of infection. - Back Exam Back exam: NORMAL INSPECTION - Neurological Exam Neurological exam: Alert, CN II-XII Intact, Oriented x3 - Psychiatric Exam Psychiatric exam: Normal Affect, Normal Mood - Skin Skin Exam: Dry, Intact, Normal Color, Warm Discharge Plan - Follow Up Plan Condition: STABLE Disposition: HOME/ ROUTINE Instructions: Deep Vein Thrombosis (Blood Clots in the Legs) (DC), Preventing Falls, Hip Pain (DC) Additional Instructions: Please follow up with your Primary Care Doctor (Dr. Grimaldo) within 3-4 days of discharge. Please continue to follow up with your [facility] (Dr. Dumas) regularly. You are receiving a script for physical therapy outpatient. Please resume your home medications as prescribed, including your arelto m edication. No adjustments were made to your medications. Please return to the nearest emergency department if your symptoms worsen or reoccur. For your seasonal allergy, over the counter flonase and zyrtec Referrals: Siddhartha Dumas MD [Staff Provider] - Maira Grimaldo MD [Primary Care Provider] - <Vandana Garcia - Last Filed: 11/18/18 17:37> Provider - Provider Date of Admission: 11/17/18 00:59 Attending physician: Vandana Garcia MD Primary care physician: Maira Grimaldo MD Hospital Course - Lab Results Lab Results: Most Recent Lab Values WBC 3.1 10^3/uL (4.5-11.0) L D 11/18/18 07:00 RBC 4.90 10^6/uL (3.5-6.1) 11/18/18 07:00 Hgb 11.5 g/dL (14.0-18.0) L 11/18/18 07:00 Hct 37.3 % (42.0-52.0) L 11/18/18 07:00 MCV 76.1 fl (80.0-105.0) L 11/18/18 07:00 MCH 23.5 pg (25.0-35.0) L 11/18/18 07:00 MCHC 30.8 g/dl (31.0-37.0) L 11/18/18 07:00 RDW 15.5 % (11.5-14.5) H 11/18/18 07:00 Plt Count 211 10^3/uL (120.0-450.0) 11/18/18 07:00 MPV 11.7 fl (7.0-11.0) H 11/18/18 07:00 Neut % (Auto) 27.5 % (50.0-68.0) L 11/18/18 07:00 Lymph % (Auto) 57.4 % (22.0-35.0) H 11/18/18 07:00 Ashe % (Auto) 7.7 % (1.0-6.0) H 11/18/18 07:00 Eos % (Auto) 5.8 % (1.5-5.0) H 11/18/18 07:00 Baso % (Auto) 1.6 % (0.0-3.0) 11/18/18 07:00 Lymph # (Auto) 1.8 (1.2-3.4) 11/18/18 07:00 Ashe # (Auto) 0.2 (0.1-0.6) 11/18/18 07:00 Eos # (Auto) 0.2 (0.0-0.7) 11/18/18 07:00 Baso # (Auto) 0.05 K/mm3 (0.0-2.0) 11/18/18 07:00 Absolute Neuts (auto) 0.85 (1.4-6.5) L 11/18/18 07:00 PT 22.1 SECONDS (9.4-12.5) H 11/17/18 00:10 INR 1.99 11/17/18 00:10 APTT 64.8 Seconds (26.9-38.3) H 11/17/18 00:10 Sodium 141 mmol/L (132-148) 11/18/18 07:00 Potassium 4.0 mmol/L (3.6-5.0) 11/18/18 07:00 Chloride 105 mmol/L (98-107) 11/18/18 07:00 Carbon Dioxide 34 mmol/L (21-33) H 11/18/18 07:00 Anion Gap 6 (10-20) L 11/18/18 07:00 BUN 6 mg/dL (7-21) L 11/18/18 07:00 Creatinine 0.8 mg/dl (0.8-1.5) 11/18/18 07:00 Est GFR ( Amer) > 60 11/18/18 07:00 Est GFR (Non-Af Amer) > 60 11/18/18 07:00 Random Glucose 74 mg/dL (70-110) 11/18/18 07:00 Calcium 8.6 mg/dL (8.4-10.5) 11/18/18 07:00 Total Bilirubin 0.3 mg/dL (0.2-1.3) 11/18/18 07:00 AST 20 U/L (17-59) 11/18/18 07:00 ALT 16 U/L (7-56) 11/18/18 07:00 Alkaline Phosphatase 66 U/L (38-126) 11/18/18 07:00 Troponin I < 0.01 ng/mL 11/17/18 07:15 Total Protein 6.6 g/dL (5.8-8.3) 11/18/18 07:00 Albumin 3.3 g/dL (3.0-4.8) 11/18/18 07:00 Globulin 3.4 gm/dL 11/18/18 07:00 Albumin/Globulin Ratio 1.0 (1.1-1.8) L 11/18/18 07:00 Blood Type B POSITIVE 11/17/18 00:10 Blood Type Confirm B POSITIVE 11/17/18 07:00 Antibody Screen Negative 11/17/18 00:10 BBK History Checked No verified bt 11/17/18 00:10 Attending/Attestation - Attestation I have personally seen and examined this patient.: Yes I have fully participated in the care of the patient.: Yes I have reviewed all pertinent clinical information, including history, physical exam and plan: Yes Notes (Text): 11/18/18 17:35 Patient was seen and examined with medical sales. 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 He was leaning on sink which broke and he fell.X rays and CT hip is negative for any acute fracture. Patient was evaluated by physical therapy and discharge to home with services has been recommended. His pain is better controlled. He will be discharged home and will follow up with PCP. Management plan was discussed in detail with patient. Education was provided.
== END 2018-11-18 21:43 | disposition home or self-care (01) ==
LOC: ED 21:27 → ERH 11-17 00:59 → 5RNO 11-17 02:39
PROVIDERS: ADMIT Hospitalist; ATTEND Internal Medicine
DX: S79.912A Unspecified injury of left hip, initial encounter (principal); M25.552 Pain in left hip; W18.30XA Fall on same level, unspecified, initial encounter; N40.0 Benign prostatic hyperplasia without lower urinary tract symptoms; D50.9 Iron deficiency anemia, unspecified; E78.5 Hyperlipidemia, unspecified; Z96.642 Presence of left artificial hip joint; Z86.718 Personal history of other venous thrombosis and embolism; Z91.81 History of falling; Y93.E1 Activity, personal bathing and showering; Y92.002 Bathroom of unspecified non-institutional (private) residence as the place of occurrence of the external cause
CPT/HCPCS: 36415; 70450; 71045; 72125; 73590; 73700; 80053; 84484; 85025; 85610; 85730; 86850; 86900; 93005; 96374; 97116; 97161; 99285; G0378; G8978; G8979; J1644; J2270